=== PATIENT | female | born 1930 | race Caucasian/White ===

== ENCOUNTER 2016-03-12 10:14 | Emergency (ER) | payer MEDICARE ==
[~2016-03-12] VITALS: Ht 152.4 cm; Wt 57.2 kg
[~2016-03-12 10:14] MED LIST: AMLO5TAB2 PO; ATOR20TA58 PO; BENZ100C2 PO; CEPH-264 PO; CILO100T PO; CILO100T21 PO; CILO50TA10 PO; CLON0.1T PO; CLOP75TA27 PO; DIAZ2TAB3 PO; FEXO180T81 PO; FLUT15.88 NS; FLUT1DIS3 IH; FLUT9.9S NS; FURO-69 PO; GABA-585 PO; HYDR-2666 PO; HYDR12.53 PO; LATA2.5D2 OU; LOSA1TAB16 PO; LOSA1TAB18 PO; MAGN400O4 PO; MONT10TA9 PO; NAPR500T3 PO; PANT40TA3 PO; PANT40TA5 PO; PROAIR HFA8.5 GM INH; SIMV40TA PO; TIMO5DRO26 OP; TRAM50TA PO; XOPENEX0.63 MG/3 IH
[2016-03-12 12:30] VITALS: BP 126/72
--- NOTE | 2016-03-12 12:30 | PHYS DOC ---
Past Medical History Past Medical History: Anxiety, Arthritis, Asthma, CAD, COPD, Depression, GERD, High Cholesterol, Hypertension, Hypotension, UTI Additional Past Medical Histor: CLAUDICATION OF BILATERAL LEG Past Surgical History: Appendectomy, Hysterectomy Additional Past Surgical Histo: Shoulders, Back, CLAUDICATION W/ INTERVENTION Alcohol Use: None Drug Use: None Adult General Chief Complaint Chief Complaint: LOWER EXTREMITY SWELLING [facility] Patient is a 85 year old female who presents with son for evaluation of worsening bilateral LE edema. She mixed up her day and night meds a couple days ago. She otherwise has been asymptomatic. She had mild bilateral foot pain from swelling. Her pain and swelling are improving since her son has applied her compression hose this a.m. prior to coming to ED. She denies cough, dyspnea, orthopnea, chest pain, injury, hemoptysis. Review of Systems Review of Systems Constitutional: Denies fever or chills [] Eyes: Denies change in visual acuity, redness, or eye pain [] HENT: Denies nasal congestion or sore throat [] Respiratory: Denies cough or shortness of breath [] Cardiovascular: No additional information not addressed in HPI [] GI: Denies abdominal pain, nausea, vomiting, bloody stools or diarrhea [] : Denies dysuria or hematuria [] Musculoskeletal: Denies back pain or joint pain [] Integument: Denies rash or skin lesions [] Neurologic: Denies headache, focal weakness or sensory changes [] Endocrine: Denies polyuria or polydipsia [] Allergies Allergies Allergies Coded Allergies Type Severity Reaction Last Updated Verified Sulfa (Sulfonamide Antibiotics) Allergy Intermediate 12/26/15 Yes codeine Allergy Intermediate 12/26/15 Yes Physical Exam Physical Exam Constitutional: Well developed, well nourished, no acute distress, non-toxic appearance. [] HENT: Normocephalic, atraumatic, bilateral external ears normal, oropharynx moist, nose normal. [] Eyes: PERRLA, EOMI. [] Neck: Normal range of motion, supple. [] Cardiovascular:Heart rate regular rhythm [] Lungs & Thorax: Bilateral breath sounds clear to auscultation [] Abdomen: Bowel sounds normal, soft, no tenderness. [] Skin: Warm, dry, no erythema, no rash. [] Back: No tenderness, no CVA tenderness. [] Extremities: No tenderness, ROM intact, bilateral 2+ LE edema. [] Neurologic: Alert and oriented X 3, normal motor function, normal sensory function, no focal deficits noted. [] Psychologic: Affect normal, judgement normal, mood normal. [] Current Patient Data Vital Signs Vital Signs Date Time Temp Pulse Resp B/P Pulse Ox O2 Delivery O2 Flow Rate FiO2 03/12/16 12:30 76 20 126/72 96 Room Air 03/12/16 10:28 98.3 98.3 Course & Med Decision Making Course & Med Decision Making She appears well on exam. Discussed management of chronic edema (as this is well documented in prior exams). Discussed importance of proper medications administration. Son states she is resistant to letting family help her and they are concerned for her well being as she lives alone. Discussed avenues for her family to help her. She has capacity to make decision to return home at this time. Return precautions given. She and son understand and agree with plan. Dragon Disclaimer Dragon Disclaimer This electronic medical record was generated, in whole or in part, using a voice recognition dictation system. Departure Departure Impression: Primary Impression: Bilateral lower extremity edema Disposition: 01 HOME, SELF-CARE Condition: STABLE Referrals: LIZABETH GOMEZ MD (PCP) Patient Instructions: Peripheral Edema Additional Instructions: Take your medications as prescribed. Follow-up with your primary care doctor. Return for any concerns. Ernestine RAM MD Mar 12, 2016 12:30
== END 2016-03-12 12:43 | disposition home or self-care (01) ==
LOC: ER 10:14
DX: R60.0 Localized edema (principal); I10 Essential (primary) hypertension; M19.90 Unspecified osteoarthritis, unspecified site; E78.00 Pure hypercholesterolemia, unspecified; J45.909 Unspecified asthma, uncomplicated; J44.9 Chronic obstructive pulmonary disease, unspecified; I25.10 Atherosclerotic heart disease of native coronary artery without angina pectoris; I95.9 Hypotension, unspecified; Z88.2 Allergy status to sulfonamides; Z88.5 Allergy status to narcotic agent
CPT/HCPCS: 99283

== ENCOUNTER 2016-07-26 20:06 | Emergency (ER) | payer MEDICARE ==
[~2016-07-26] VITALS: Ht 152.4 cm; Wt 49.9 kg
[~2016-07-26 20:06] MED LIST changes: +BENZ100C15 PO; -BENZ100C2 PO; -CLOP75TA27 PO; +CLOP75TA57 PO; -HYDR-2666 PO; +HYDR-2758 PO; -MAGN400O4 PO; +MAGN400O7 PO
[2016-07-26] MEDS ORDERED: LIDOCAINE 1% / SOD BICARB 8.4% 20 ML VIAL. IJ ONE (20:30)
[2016-07-26] MEDS ORDERED: TETANUS AND DIPHTHERIA TOX/PF 0.5 ML DISP.SYRIN. VAX IM ONE (20:30)
[2016-07-26] MEDS ORDERED: CEPH-263 PO (20:34)
--- NOTE | 2016-07-26 20:35 | PHYS DOC ---
Past Medical History Past Medical History: Anxiety, Arthritis, Asthma, CAD, COPD, Depression, GERD, High Cholesterol, Hypertension, Hypotension, UTI, Other Additional Past Medical Histor: CLAUDICATION OF BILATERAL LEG Past Surgical History: Appendectomy, Hysterectomy, Other Additional Past Surgical Histo: Shoulders, Back, CLAUDICATION W/ INTERVENTION, R ANKLE ORIF Alcohol Use: None Drug Use: None Adult General Chief Complaint Chief Complaint: LACERATION/AVULSION HPI HPI Patient is a 86 year old arrives to the emergency department per EMS with complaints laceration to the left forearm. Patient states she was working in her garden when the tools lacerated her arm. Hemostasis obtained prior to arrival. Patient has no complaints of headache, lightheadedness, chest pain, nausea, vomiting. Review of Systems Review of Systems Constitutional: Denies fever or chills [] Eyes: Denies change in visual acuity, redness, or eye pain [] HENT: Denies nasal congestion or sore throat [] Respiratory: Denies cough or shortness of breath [] Cardiovascular: No additional information not addressed in HPI [] GI: Denies abdominal pain, nausea, vomiting, bloody stools or diarrhea [] : Denies dysuria or hematuria [] Musculoskeletal: Denies back pain or joint pain [] Integument: Laceration left forearm Neurologic: Denies headache, focal weakness or sensory changes [] Endocrine: Denies polyuria or polydipsia [] Current Medications Current Medications Current Medications Medications (Trade) Dose Ordered Sig/Amos Start Time Stop Time Status Last Admin Dose Admin Lidocaine/Sodium Bicarbonate (Buffered Lidocaine 1%) 20 ml 1X ONCE 07/26/16 20:30 07/26/16 20:31 Tetanus/ Diphtheria Toxoids (Tenivac Syringe) 0.5 ml ONCE ONCE 07/26/16 20:30 07/26/16 20:31 Allergies Allergies Allergies Coded Allergies Type Severity Reaction Last Updated Verified Sulfa (Sulfonamide Antibiotics) Allergy Intermediate 12/26/15 Yes codeine Allergy Intermediate 03/16/16 Yes Physical Exam Physical Exam Constitutional: Well developed, well nourished, no acute distress, non-toxic appearance. [] HENT: Normocephalic, atraumatic Neck: Normal range of motion, no tenderness, supple, no stridor. [] Cardiovascular:Heart rate regular rhythm, no murmur [] Lungs & Thorax: Bilateral breath sounds clear to auscultation [] Abdomen: Bowel sounds normal, soft, no tenderness, no masses, no pulsatile masses. [] Skin: Left forearm, volar aspect of the midforearm, 4 cm partial-thickness laceration. No active bleeding at time of exam. Back: No tenderness, no CVA tenderness. [] Extremities: No tenderness, no cyanosis, no clubbing, ROM intact, no edema. No bony tenderness exam of the left forearm, left elbow and left hand exam unremarkable. Full range of motion of the elbow and wrist as well as the hand without difficulty. Neurovascular intact distally. Neurologic: Alert and oriented X 3, normal motor function, normal sensory function, no focal deficits noted. [] Psychologic: Affect normal, judgement normal, mood normal. [] Current Patient Data Vital Signs Vital Signs Date Time Temp Pulse Resp B/P (MAP) Pulse Ox O2 Delivery O2 Flow Rate FiO2 07/26/16 20:07 98.3 80 18 93 Room Air 98.3 EKG EKG [] Radiology/Procedures Radiology/Procedures [] Course & Med Decision Making Course & Med Decision Making Procedure note: Left forearm, 4 cm laceration cleansed with Betadine, anesthetized with 1% lidocaine, 2 mL. Wound was copiously irrigated with normal saline, Betadine scrub. Wound edges approximated with 4-0 Prolene, 12 running sutures. Wound was dressed with a bulky bandage. Patient tolerated procedure well. Pertinent Labs and Imaging studies reviewed. (See chart for details) [] Dragon Disclaimer Dragon Disclaimer This electronic medical record was generated, in whole or in part, using a voice recognition dictation system. Departure Departure Impression: Primary Impression: Laceration Disposition: 01 HOME, SELF-CARE Condition: STABLE Referrals: LIZABETH GOMEZ MD (PCP) Patient Instructions: Diphtheria Toxoid; Tetanus Toxoid Adsorbed, DT, Td, Laceration Care, Adult Additional Instructions: Keep the wound clean and dry. You may wash with soap and water. Please see her primary care physician to have the sutures removed in 10 days. Return to the emergency Department for new symptoms or concerns or worsening of current condition. Scripts Cephalexin (KEFLEX) 250 Mg Capsule 1 CAP PO TID, #21 CAP Prov: JULISSA YE APRN 07/26/16 JULISSA YE APRN Jul 26, 2016 20:35
[2016-07-26 21:00] VITALS: BP 135/67
== END 2016-07-26 21:01 | disposition home or self-care (01) ==
LOC: ER 20:06
DX: S51.812A Laceration without foreign body of left forearm, initial encounter (principal); F41.9 Anxiety disorder, unspecified; M19.90 Unspecified osteoarthritis, unspecified site; J44.9 Chronic obstructive pulmonary disease, unspecified; I25.10 Atherosclerotic heart disease of native coronary artery without angina pectoris; F32.9 Major depressive disorder, single episode, unspecified; K21.9 Gastro-esophageal reflux disease without esophagitis; E78.00 Pure hypercholesterolemia, unspecified; I10 Essential (primary) hypertension; Z87.440 Personal history of urinary (tract) infections; Z88.5 Allergy status to narcotic agent; Z88.2 Allergy status to sulfonamides; W27.8XXA Contact with other nonpowered hand tool, initial encounter; Y93.89 Activity, other specified; Y92.096 Garden or yard of other non-institutional residence as the place of occurrence of the external cause; Y99.8 Other external cause status
CPT/HCPCS: 12002; 90471; 90714; 99283-25

== ENCOUNTER 2016-08-20 09:41 | Inpatient (IN) | payer MEDICARE ==
[~2016-08-20] VITALS: Ht 152.4 cm; Wt 55.5 kg
[~2016-08-20 09:41] MED LIST changes: +CEPH-263 PO
[2016-08-20] MEDS ORDERED: ONDANSETRON PF 4 MG/2 ML VIAL. IV ONE (10:30)
[2016-08-20] MEDS ORDERED: IV NORMAL SALINE 500ML BAG 500 ML IV ONE (10:30)
[2016-08-20] MEDS: HYDROmorphone 2 MG/ML VIAL IV PRN ×2 (10:41→15:59)
[2016-08-20 10:47] LABS: BASO # 0.1 x10^3/uL (0.0-0.2); BASO % 1 % (0-3); EOS % 6 % (0-3); HEMATOCRIT 39.3 % (36.0-47.0); HEMOGLOBIN 13.5 g/dL (12.0-15.5); LYMPH % 30 % (24-48); MEAN CORPUSCULAR HEMOGLOBIN 31 pg (25-35); MEAN CORPUSCULAR HGB CONC 34 g/dL (31-37); MEAN CORPUSCULAR VOLUME 90 fL (79-100); MONO % 5 % (0-9); NEUT % 59 % (31-73); PLATELET COUNT 286 x10^3/uL (140-400); RED BLOOD COUNT 4.36 x10^6/uL (3.50-5.40); RED CELL DISTRIBUTION WIDTH 13.8 % (11.5-14.5)
[2016-08-20 10:50] LABS: ALBUMIN 3.4 g/dL (3.4-5.0); CALCIUM 8.5 mg/dL (8.5-10.1); CREATININE 0.5 mg/dL (0.6-1.0); DIRECT BILIRUBIN 0.1 mg/dL (0.0-0.2); GFR 116.4; POTASSIUM 3.2 mmol/L (3.5-5.1); TOTAL BILIRUBIN 0.6 mg/dL (0.2-1.0); TOTAL PROTEIN 6.7 g/dL (6.4-8.2)
[2016-08-20 11:08] LABS: BILIRUBIN,URINE NEGATIVE (NEG); GLUCOSE,URINE NEGATIVE (NEG); NITRITE,URINE NEGATIVE (NEG); PH,URINE 7.5; PROTEIN,URINE NEGATIVE (NEG-TRACE); UROBILINOGEN,URINE 0.2 mg/dL (0.2 mg/dL)
[2016-08-20] MEDS ORDERED: IOHEXOL 300 MG/ML 75 ML VIAL IV ONE (11:15)
[2016-08-20 11:25] LABS: BACTERIA,URINE FEW /HPF (0-FEW); RBC,URINE 0 /HPF (0-2); SQUAMOUS EPITHELIAL CELL,UR FEW /LPF
[2016-08-20] MEDS ORDERED: CONTRAST GIVEN MC PRN (11:30)
--- NOTE | 2016-08-20 11:37 | PHYS DOC ---
Past Medical History Past Medical History: Anxiety, Arthritis, Asthma, CAD, COPD, Depression, GERD, High Cholesterol, Hypertension, Hypotension, UTI, Other Additional Past Medical Histor: CLAUDICATION OF BILATERAL LEG Past Surgical History: Appendectomy, Hysterectomy, Other Additional Past Surgical Histo: Shoulders, Back, CLAUDICATION W/ INTERVENTION, R ANKLE ORIF Alcohol Use: None Drug Use: None Adult General Chief Complaint Chief Complaint: GI PROBLEM HPI HPI 78-year-old female presenting to the emergency department with right lower quadrant abdominal pain that is sharp nonradiating moderate associated with nausea without vomiting. It started around 9:00 this morning. She denies fevers chills diarrhea constipation. Review of systems is negative for chest pain shortness of breath fevers chills confusion lethargy cyanosis vision changes numbness weakness or tingling. All other review of systems is negative unless otherwise noted in history of present illness. ED course: 78-year-old female presenting to the emergency department with right lower quadrant abdominal pain. Vital signs afebrile normal heart rate. Elevated blood pressure which is chronic condition. Patient was given IV fluids ondansetron and hydromorphone in the emergency department. CT the abdomen pelvis along with blood work obtained. Blood work shows mild hypokalemia, otherwise unremarkable. Troponin negative. EKG shows sinus rhythm with a regular rate. ST segments congruent. Not consistent with ACS. CT the abdomen pelvis shows no acute pathology. The patient's pain was moderately controlled in the emergency department however the patient was not feeling better on reexamination the patient was subsequently admitted for serial abdominal examination, GI consult, further evaluation workup and care to Dr. Fleming. Review of Systems Review of Systems SEE ABOVE. Current Medications Current Medications Current Medications Medications (Trade) Dose Ordered Sig/Amos Start Time Stop Time Status Last Admin Dose Admin Hydromorphone HCl (Dilaudid) 0.5 mg 1X ONCE 08/20/16 11:45 08/20/16 11:46 DC Info (Do NOT chart on this entry -- for MONITORING) 1 each PRN DAILY PRN 08/20/16 11:30 08/22/16 11:29 Iohexol (Omnipaque 300 Mg/ml) 75 ml 1X ONCE 08/20/16 11:15 08/20/16 11:25 DC 08/20/16 11:36 75 ML Ondansetron HCl (Zofran) 4 mg 1X ONCE 08/20/16 10:30 08/20/16 10:33 DC 08/20/16 10:42 4 MG Sodium Chloride 500 ml @ 500 mls/hr 1X ONCE 08/20/16 10:30 08/20/16 11:29 DC 08/20/16 10:41 500 MLS/HR Allergies Allergies Allergies Coded Allergies Type Severity Reaction Last Updated Verified Sulfa (Sulfonamide Antibiotics) Allergy Intermediate 12/26/15 Yes codeine Adverse Reaction Intermediate NAUSEA AND VOMITING 08/20/16 Yes Physical Exam Physical Exam SEE ABOVE Constitutional: Well developed, well nourished, no acute distress, non-toxic appearance. [] HENT: Normocephalic, atraumatic, bilateral external ears normal, oropharynx moist, no oral exudates, nose normal. Eyes: PERRLA, EOMI, conjunctiva normal, no discharge. [] Neck: Normal range of motion, no tenderness, supple, no stridor. [] Cardiovascular: Heart rate regular rhythm, no murmur Lungs & Thorax: Bilateral breath sounds clear to auscultation [] Abdomen: Abdomen is soft and mildly tender to palpation in the right lower quadrant. No rebound tenderness or guarding is present. Skin: Warm, dry, no erythema, no rash. [] Back: No tenderness, no CVA tenderness. [] Extremities: No tenderness, no cyanosis, no clubbing, ROM intact, no edema. Neurologic: Alert and oriented X 3, normal motor function, normal sensory function, no focal deficits noted. Psychologic: Affect normal, judgement normal, mood normal. [] Current Patient Data Vital Signs Vital Signs Date Time Temp Pulse Resp B/P (MAP) Pulse Ox O2 Delivery O2 Flow Rate FiO2 08/20/16 12:20 67 18 137/76 (96) 98 Room Air 08/20/16 09:42 98.8 98.8 Lab Values Laboratory Tests Test 08/20/16 10:20 08/20/16 10:35 White Blood Count 10.0 x10^3/uL (4.0-11.0) Red Blood Count 4.36 x10^6/uL (3.50-5.40) Hemoglobin 13.5 g/dL (12.0-15.5) Hematocrit 39.3 % (36.0-47.0) Mean Corpuscular Volume 90 fL (79-100) Mean Corpuscular Hemoglobin 31 pg (25-35) Mean Corpuscular Hemoglobin Concent 34 g/dL (31-37) Red Cell Distribution Width 13.8 % (11.5-14.5) Platelet Count 286 x10^3/uL (140-400) Neutrophils (%) (Auto) 59 % (31-73) Lymphocytes (%) (Auto) 30 % (24-48) Monocytes (%) (Auto) 5 % (0-9) Eosinophils (%) (Auto) 6 % (0-3) H Basophils (%) (Auto) 1 % (0-3) Neutrophils # (Auto) 5.9 x10^3uL (1.8-7.7) Lymphocytes # (Auto) 3.0 x10^3/uL (1.0-4.8) Monocytes # (Auto) 0.5 x10^3/uL (0.0-1.1) Eosinophils # (Auto) 0.6 x10^3/uL (0.0-0.7) Basophils # (Auto) 0.1 x10^3/uL (0.0-0.2) Sodium Level 139 mmol/L (136-145) Potassium Level 3.2 mmol/L (3.5-5.1) L Chloride Level 100 mmol/L (98-107) Carbon Dioxide Level 34 mmol/L (21-32) H Anion Gap 5 (6-14) L Blood Urea Nitrogen 13 mg/dL (7-20) Creatinine 0.5 mg/dL (0.6-1.0) L Estimated GFR (Cockcroft-Gault) 116.4 Glucose Level 104 mg/dL (70-99) H Lactic Acid Level 1.4 mmol/L (0.4-2.0) Calcium Level 8.5 mg/dL (8.5-10.1) Total Bilirubin 0.6 mg/dL (0.2-1.0) Direct Bilirubin 0.1 mg/dL (0.0-0.2) Aspartate Amino Transferase (AST) 18 U/L (15-37) Alanine Aminotransferase (ALT) 21 U/L (14-59) Alkaline Phosphatase 94 U/L (46-116) Troponin I Quantitative < 0.017 ng/mL (0.000-0.055) Total Protein 6.7 g/dL (6.4-8.2) Albumin 3.4 g/dL (3.4-5.0) Lipase 158 U/L (73-393) Urine Collection Type Void Urine Color Yellow Urine Clarity Clear Urine pH 7.5 Urine Specific Potter <=1.005 Urine Protein Negative mg/dL (NEG-TRACE) Urine Glucose (UA) Negative mg/dL (NEG) Urine Ketones (Stick) Negative mg/dL (NEG) Urine Blood Negative (NEG) Urine Nitrite Negative (NEG) Urine Bilirubin Negative (NEG) Urine Urobilinogen Dipstick 0.2 mg/dL (0.2 mg/dL) Urine Leukocyte Esterase Small (NEG) Urine RBC 0 /HPF (0-2) Urine WBC 1-4 /HPF (0-4) Urine Squamous Epithelial Cells Few /LPF Urine Amorphous Sediment Present /HPF Urine Bacteria Few /HPF (0-FEW) Laboratory Tests 08/20/16 10:20 Laboratory Tests 08/20/16 10:20 EKG EKG [] Radiology/Procedures Radiology/Procedures [] Course & Med Decision Making Course & Med Decision Making Pertinent Labs and Imaging studies reviewed. (See chart for details) [] Dragon Disclaimer Dragon Disclaimer This electronic medical record was generated, in whole or in part, using a voice recognition dictation system. Departure Departure Impression: Primary Impression: Right lower quadrant abdominal pain Disposition: ADMITTED INPATIENT Admitting Physician: Harjeet Crum Condition: STABLE Referrals: LIZABETH GOMEZ MD (PCP) Patient Instructions: Abdominal Pain ASHLEY WILLS MD Aug 20, 2016 11:37
[2016-08-20] MEDS ORDERED: HYDROmorphone 2 MG/ML VIAL IVP ONE (11:45)
--- NOTE | 2016-08-20 12:14 | RAD ---
CT of the abdomen and pelvis with contrast, 08/20/2016: History: Right-sided abdominal pain Multidetector CT imaging was performed following an IV bolus injection of iodinated contrast material. Comparison is made to a study from 08/09/2010. The liver is unremarkable. No gallbladder abnormality is seen. The pancreas shows no abnormality. The spleen is within normal limits in size. There are 2 left renal cysts. One of these demonstrates calcification along its posterior wall. This cyst has decreased in size since previous exam. The kidneys show no evidence of obstruction. There is moderate calcific plaquing of the abdominal aorta and its branches. No abdominal or pelvic adenopathy is evident. The uterus is surgically absent. The urinary bladder is mildly distended. Scattered colonic diverticula are present, most numerous in the sigmoid region. No paracolonic inflammatory process is seen. There are sutures related to what appears to be small bowel in the left lower quadrant. No bowel dilatation is evident. The appendix is not visualized. No dilated appendix or pericecal inflammatory process is seen. No free air or free fluid is evident in the abdomen or pelvis. Surgical pins are present in the left hip. Moderate multilevel degenerative change is present in the spine. IMPRESSION: 1. Colonic diverticulosis. 2. Left renal cysts. 3. No acute abdominal or pelvic abnormality is detected. PQRS Compliance Statement: One or more of the following individualized dose reduction techniques were utilized for this examination: 1. Automated exposure control 2. Adjustment of the mA and/or kV according to patient size 3. Use of iterative reconstruction technique
--- NOTE | 2016-08-20 12:20 | ACF ---
Admission Forms Criteria I am unable to edit this form. This patient was placed as observation status. This is the only avenue in our electronic medical record for me to document this. All of the above information is not my professional medical opinion. Admission Criteria Met?: Pending JENNIFER LAWRENCE Aug 20, 2016 12:20 ASHLEY WILLS MD Aug 26, 2016 03:53
[2016-08-20] MEDS ORDERED: IV NORMAL SALINE 1000ML BAG 1,000 ML IV SCH (13:09)
[2016-08-20] MEDS ORDERED: MORPHINE SULFATE 2 MG/ML DISP.SYRIN. IV PRN (13:15)
[2016-08-20] MEDS ORDERED: ONDANSETRON PF 4 MG/2 ML VIAL. IV PRN (13:15)
--- NOTE | 2016-08-20 14:53 | PDOC2 ---
GI CONSULT Reason For Consult: Abd pain HPI: HPI: 86 y/o female evaluated in the ER for RLQ pain, admission pending. Her son was present earlier but had to leave. Admits to some short term memory loss sometimes. She reports she awoke this morning w/ RLQ pain. She believes similar pain occurred last week and resolved spontaneously. H/o constipation controlled w/ OTC medications (can't remember names) and h/o GERD mostly controlled w/ PPI QD, uses OTC medications PRN for breakthrough heartburn. Last BM yesterday, denies hematochezia or melena. Some nausea w/o vomiting. Appetite is about the same as it always is; "I never eat right." Fluctuating weight, perhaps w/ more loss recently. No regular NSAID use; home meds indicate use of Plavix and Pletal which she denies. Believes last colonoscopy within 10 years, perhaps w/ polyps; unclear re: previous EGD. (Note consult from Dr. Kaleb Newby in 2013 for right-sided abd pain mentions recent EGD which was unrevealing for PUD. At that time abd US noted normal gallbladder.) CBC and CMP unrevealing except for low K+ (3.2). Lactic acid WNL. UA w/ + ( small) leuk esterase and bacteria. CT A/P negative for acute finding; note renal cysts, moderate plaquing of abd aorta, scattered diverticulosis, and sutures related to small bowel in LLQ. (She denies previous bowel resection.) Feeling better currently after Dilaudid x 1. PMH: PMH: CAD, HTN, HLD, carotid artery disease, chronic lymphedema, asthma, PVD, GERD, ? colon polyps, diverticulosis, UTIs, OA, DDD, anxiety/depression, vertigo, glaucoma, BLE P[employer]EM[employer], appendectomy, hysterectomy, right shoulder arthroscopy, back surgery, right ankle fracture/surgery, right total hip replacement, tonsillectomy, ?small bowel resection (sutures in LLQ on CT) FH: Family History: No pertinent hx Social History: Smoke: No ALCOHOL: none Drugs: None ROS: GEN: Denies fevers, chills, sweats HEENT: Denies blurred vision, sore throat CV: Denies chest pain RESP: Denies shortness of air, cough GI: Per HPI : Denies hematuria, dysuria ENDO: +fluctuating weight NEURO: +memory loss MSK: bilateral feet swelling SKIN: Denies jaundice, pruritus Vitals: Vitals: Vital Signs Date Time Temp Pulse Resp B/P (MAP) Pulse Ox O2 Delivery O2 Flow Rate FiO2 08/20/16 13:47 68 18 136/78 (97) 98 Room Air 08/20/16 09:42 98.8 98.8 Labs: Labs: Laboratory Tests Test 08/20/16 10:20 08/20/16 10:35 White Blood Count 10.0 x10^3/uL (4.0-11.0) Red Blood Count 4.36 x10^6/uL (3.50-5.40) Hemoglobin 13.5 g/dL (12.0-15.5) Hematocrit 39.3 % (36.0-47.0) Mean Corpuscular Volume 90 fL (79-100) Mean Corpuscular Hemoglobin 31 pg (25-35) Mean Corpuscular Hemoglobin Concent 34 g/dL (31-37) Red Cell Distribution Width 13.8 % (11.5-14.5) Platelet Count 286 x10^3/uL (140-400) Neutrophils (%) (Auto) 59 % (31-73) Lymphocytes (%) (Auto) 30 % (24-48) Monocytes (%) (Auto) 5 % (0-9) Eosinophils (%) (Auto) 6 % (0-3) Basophils (%) (Auto) 1 % (0-3) Neutrophils # (Auto) 5.9 x10^3uL (1.8-7.7) Lymphocytes # (Auto) 3.0 x10^3/uL (1.0-4.8) Monocytes # (Auto) 0.5 x10^3/uL (0.0-1.1) Eosinophils # (Auto) 0.6 x10^3/uL (0.0-0.7) Basophils # (Auto) 0.1 x10^3/uL (0.0-0.2) Sodium Level 139 mmol/L (136-145) Potassium Level 3.2 mmol/L (3.5-5.1) Chloride Level 100 mmol/L (98-107) Carbon Dioxide Level 34 mmol/L (21-32) Anion Gap 5 (6-14) Blood Urea Nitrogen 13 mg/dL (7-20) Creatinine 0.5 mg/dL (0.6-1.0) Estimated GFR (Cockcroft-Gault) 116.4 Glucose Level 104 mg/dL (70-99) Lactic Acid Level 1.4 mmol/L (0.4-2.0) Calcium Level 8.5 mg/dL (8.5-10.1) Total Bilirubin 0.6 mg/dL (0.2-1.0) Direct Bilirubin 0.1 mg/dL (0.0-0.2) Aspartate Amino Transf (AST/SGOT) 18 U/L (15-37) Alanine Aminotransferase (ALT/SGPT) 21 U/L (14-59) Alkaline Phosphatase 94 U/L (46-116) Troponin I Quantitative < 0.017 ng/mL (0.000-0.055) Total Protein 6.7 g/dL (6.4-8.2) Albumin 3.4 g/dL (3.4-5.0) Lipase 158 U/L (73-393) Urine Collection Type Void Urine Color Yellow Urine Clarity Clear Urine pH 7.5 Urine Specific [place] <=1.005 Urine Protein Negative mg/dL (NEG-TRACE) Urine Glucose (UA) Negative mg/dL (NEG) Urine Ketones (Stick) Negative mg/dL (NEG) Urine Blood Negative (NEG) Urine Nitrite Negative (NEG) Urine Bilirubin Negative (NEG) Urine Urobilinogen Dipstick 0.2 mg/dL (0.2 mg/dL) Urine Leukocyte Esterase Small (NEG) Urine RBC 0 /HPF (0-2) Urine WBC 1-4 /HPF (0-4) Urine Squamous Epithelial Cells Few /LPF Urine Amorphous Sediment Present /HPF Urine Bacteria Few /HPF (0-FEW) Allergies: Coded Allergies: Sulfa (Sulfonamide Antibiotics) (Verified Allergy, Intermediate, 12/26/15) codeine (Verified Adverse Reaction, Intermediate, NAUSEA AND VOMITING, 08/20) TOLERATES HYDROCODONE Medications: Current Medications Medications (Trade) Dose Ordered Sig/Amos Route PRN Reason Start Time Stop Time Status Last Admin Dose Admin Hydromorphone HCl (Dilaudid) 0.5 mg PRN Q1HR PRN IV SEVERE PAIN 08/20/16 10:30 08/20/16 10:41 Ondansetron HCl (Zofran) 4 mg 1X ONCE IV 08/20/16 10:30 08/20/16 10:33 DC 08/20/16 10:42 Sodium Chloride 500 ml @ 500 mls/hr 1X ONCE IV 08/20/16 10:30 08/20/16 11:29 DC 08/20/16 10:41 Iohexol (Omnipaque 300 Mg/ml) 75 ml 1X ONCE IV 08/20/16 11:15 08/20/16 11:25 DC 08/20/16 11:36 Imaging: Imaging: CT A/P w/ IV contrast 08/20/16 The liver is unremarkable. No gallbladder abnormality is seen. The pancreas shows no abnormality. The spleen is within normal limits in size. There are 2 left renal cysts. One of these demonstrates calcification along its posterior wall. This cyst has decreased in size since previous exam. The kidneys show no evidence of obstruction. There is moderate calcific plaquing of the abdominal aorta and its branches. No abdominal or pelvic adenopathy is evident. The uterus is surgically absent. The urinary bladder is mildly distended. Scattered colonic diverticula are present, most numerous in the sigmoid region. No paracolonic inflammatory process is seen. There are sutures related to what appears to be small bowel in the left lower quadrant. No bowel dilatation is evident. The appendix is not visualized. No dilated appendix or pericecal inflammatory process is seen. No free air or free fluid is evident in the abdomen or pelvis. Surgical pins are present in the left hip. Moderate multilevel degenerative change is present in the spine. IMPRESSION: 1. Colonic diverticulosis. 2. Left renal cysts. 3. No acute abdominal or pelvic abnormality is detected. PE: GEN: NAD, thin HEENT: Atraumatic, PERRL LUNGS: CTAB anteriorly HEART: RRR +soft murm ABD: BS+, soft, non-distended, RLQ discomfort to deep palpation, perhaps slightly tender LLQ as well EXTREMITY: BLE edema SKIN: No rashes, no jaundice NEURO/PSYCH: A & O 3 A/P: A/P: RLQ pain -sudden onset this morning, possibly had similar pain last week w/ spontaneous resolution -s/p appendectomy, hysterectomy, ?small bowel resection -CT A/P w/o acute issue Constipation - controlled -takes OTC meds, last BM yesterday -reports last colonoscopy within 10 years, perhaps w/ polyps GERD - controlled -on PPI at home, occasionally takes OTC meds for breakthrough heartburn -records indicate EGD in 2013 w/o ulcers ?weight loss -reports h/o fluctuating weight, perhaps some decreased appetite (although this does not seem like a new issue) CAD, PVD -- Pain currently improved after Dilaudid. D/w Dr. Rodriguez - will check CTA tomorrow. Try clears, ADAT today. Update: According to office records, last EGD in 09/2014 w/ tortuous esophagus and benign esophageal stricture (dilated), H. pylori negative gastritis, and normal duodenum. Last colonoscopy on file from 2007 w/ sigmoid diverticulosis and internal hemorrhoids only. LA NENA CORDOBA Aug 20, 2016 14:53
[2016-08-20] MEDS: POLYETHYLENE GLYCOL 3350 17 GM PACKET. PO SCH (15:59)
[2016-08-20 16:00] VITALS: BP 164/71
[2016-08-20] MEDS: PANTOPRAZOLE 40 MG TABLET.DR. PO SCH (16:00)
[2016-08-20] MEDS ORDERED: ESCITALOPRAM OX10 MG PO (17:26)
[2016-08-20] MEDS ORDERED: TRAM50TA PO (17:26)
[2016-08-20] MEDS ORDERED: PROAIR HFA8.5 GM INH (17:26)
[2016-08-20] MEDS ORDERED: AMLO5TAB2 PO (17:26)
[2016-08-20] MEDS ORDERED: TIMO5DRO26 OP (17:26)
[2016-08-20] MEDS ORDERED: HYDR12.58 PO (17:26)
[2016-08-20] MEDS ORDERED: LOSA50TA6 PO (17:26)
[2016-08-20] MEDS ORDERED: DIAZ5TAB4 PO (17:26)
[2016-08-20] MEDS ORDERED: FLUT1DIS3 IH (17:26)
[2016-08-20] MEDS ORDERED: LATA2.5D2 EACHEYE (17:26)
[2016-08-20 17:58] VITALS: BP 164/71
[2016-08-20 19:00] VITALS: BP 148/48
[2016-08-20] MEDS ORDERED: ALBUTEROL SULFATE 2.5 MG/3 ML NEBU. NEB PRN (19:30)
[2016-08-20] MEDS ORDERED: ACETAMINOPHEN 325 MG TABLET. PO PRN (19:30)
[2016-08-20] MEDS: IV NORMAL SALINE 1000ML BAG 1,000 ML IV SCH (19:30)
[2016-08-20] MEDS ORDERED: hydrALAZINE 20 MG/ML VIAL. IVP PRN (19:30)
--- NOTE | 2016-08-20 19:40 | PDOC1 ---
History and Physical Date of Admission Date of Admission 08/20/16 7 26 pm Identification/Chief Complaint Chief Complaint abdominal pain Problems: History of Present Illness History of Present Illness A 86 F with hx of HTN, PAD, GERD presented to hospital for abdominal RUQ, for 1 year , worse today, waxing and waning better with dilaudid, 11/25, no radiation, . Pt not able to provide good hx, old records reviewed, she had hx of PAD. No hematochezia or hematemesis. 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 SOCIAL HISTORY Smoke: No ALCOHOL: none Drugs: None Cardiovascular: HTN, Hyperlipidemia, Other Pulmonary: Asthma CENTRAL NERVOUS SYSTEM: Other GI: GERD Psych: Anxiety, Depression Rheumatologic: No pertinent hx Infectious disease: No pertinent hx Renal/: UTI Endocrine: No pertinent hx Past Surgical History Past Surgical History: Appendectomy, Arthroscopy, Total hip replacement, Tonsillectomy, Hysterectomy, Other Family History Family History: No Significant, Other (some GI cancer, pt doesn't know) Social History Smoke: No ALCOHOL: none Drugs: None Current Problem List Problem List Problems Medical Problems: (1) Right lower quadrant abdominal pain Status: Acute Current Medications Current Medications Current Medications Medications (Trade) Dose Ordered Sig/Amos Start Time Stop Time Status Last Admin Dose Admin Hydromorphone HCl (Dilaudid) 0.5 mg 1X ONCE 08/20/16 11:45 08/20/16 11:46 DC Info (Do NOT chart on this entry -- for MONITORING) 1 each PRN DAILY PRN 08/20/16 11:30 08/22/16 11:29 Iohexol (Omnipaque 300 Mg/ml) 75 ml 1X ONCE 08/20/16 11:15 08/20/16 11:25 DC 08/20/16 11:36 75 ML Morphine Sulfate 2 mg PRN Q2HR PRN 08/20/16 13:15 08/21/16 13:14 Ondansetron HCl (Zofran) 4 mg PRN Q8HRS PRN 08/20/16 13:15 08/21/16 13:14 Pantoprazole Sodium (Protonix) 40 mg DAILYAC 08/20/16 16:30 08/20/16 16:00 40 MG Polyethylene Glycol (miraLAX PACKET) 17 gm DAILY 08/20/16 15:15 08/20/16 15:59 17 GM Sodium Chloride 1,000 ml @ 125 mls/hr Q8H 08/20/16 13:09 08/21/16 13:08 08/20/16 16:00 125 MLS/HR Allergies Allergies Allergies Coded Allergies Type Severity Reaction Last Updated Verified Sulfa (Sulfonamide Antibiotics) Allergy Intermediate 12/26/15 Yes codeine Adverse Reaction Intermediate NAUSEA AND VOMITING 08/20/16 Yes ROS Review of System CONSTITUTIONAL: No fever or chills EYES: No recent changes SKIN: No rash or itching CARDIOVASCULAR: No chest pain, syncope, palpitations, or edema RESPIRATORY: No SOB or cough GASTROINTESTINAL: abdominal pain NEUROLOGICAL: No headaches or weakness ENDOCRINE: No cold or heat intolerance GENITOURINARY: No urgency or frequency of urination MUSCULOSKELETAL: No back pain or joint pain LYMPHATICS: No enlarged lymph nodes PSYCHIATRIC: No anxiety or depression Physical Exam Physical Exam GEN.: No apparent distress. Alert and oriented. HEENT: Head is normocephalic, atraumatic NECK: Supple. no JVD LUNGS: Clear to auscultation. HEART: RRR, S1, S2 present. Peripheral pulses intact ABDOMEN: Soft, nontender. Positive bowel sounds. EXTREMITIES: Without any cyanosis. NEUROLOGIC: Normal speech, normal tone PSYCHIATRIC: Normal affect, normal mood. SKIN: No Visible ulcerations Vitals Vitals Vital Signs Date Time Temp Pulse Resp B/P (MAP) Pulse Ox O2 Delivery O2 Flow Rate FiO2 08/20/16 17:58 98.1 70 164/71 (102) 99 98.1 08/20/16 17:43 Room Air 08/20/16 16:00 18 Labs Labs Laboratory Tests Test 08/20/16 10:20 08/20/16 10:35 08/20/16 15:15 White Blood Count 10.0 x10^3/uL (4.0-11.0) Red Blood Count 4.36 x10^6/uL (3.50-5.40) Hemoglobin 13.5 g/dL (12.0-15.5) Hematocrit 39.3 % (36.0-47.0) Mean Corpuscular Volume 90 fL (79-100) Mean Corpuscular Hemoglobin 31 pg (25-35) Mean Corpuscular Hemoglobin Concent 34 g/dL (31-37) Red Cell Distribution Width 13.8 % (11.5-14.5) Platelet Count 286 x10^3/uL (140-400) Neutrophils (%) (Auto) 59 % (31-73) Lymphocytes (%) (Auto) 30 % (24-48) Monocytes (%) (Auto) 5 % (0-9) Eosinophils (%) (Auto) 6 % (0-3) Basophils (%) (Auto) 1 % (0-3) Neutrophils # (Auto) 5.9 x10^3uL (1.8-7.7) Lymphocytes # (Auto) 3.0 x10^3/uL (1.0-4.8) Monocytes # (Auto) 0.5 x10^3/uL (0.0-1.1) Eosinophils # (Auto) 0.6 x10^3/uL (0.0-0.7) Basophils # (Auto) 0.1 x10^3/uL (0.0-0.2) Sodium Level 139 mmol/L (136-145) Potassium Level 3.2 mmol/L (3.5-5.1) Chloride Level 100 mmol/L (98-107) Carbon Dioxide Level 34 mmol/L (21-32) Anion Gap 5 (6-14) Blood Urea Nitrogen 13 mg/dL (7-20) Creatinine 0.5 mg/dL (0.6-1.0) Estimated GFR (Cockcroft-Gault) 116.4 Glucose Level 104 mg/dL (70-99) Lactic Acid Level 1.4 mmol/L (0.4-2.0) 0.9 mmol/L (0.4-2.0) Calcium Level 8.5 mg/dL (8.5-10.1) Total Bilirubin 0.6 mg/dL (0.2-1.0) Direct Bilirubin 0.1 mg/dL (0.0-0.2) Aspartate Amino Transf (AST/SGOT) 18 U/L (15-37) Alanine Aminotransferase (ALT/SGPT) 21 U/L (14-59) Alkaline Phosphatase 94 U/L (46-116) Troponin I Quantitative < 0.017 ng/mL (0.000-0.055) Total Protein 6.7 g/dL (6.4-8.2) Albumin 3.4 g/dL (3.4-5.0) Lipase 158 U/L (73-393) Urine Collection Type Void Urine Color Yellow Urine Clarity Clear Urine pH 7.5 Urine Specific [place] <=1.005 Urine Protein Negative mg/dL (NEG-TRACE) Urine Glucose (UA) Negative mg/dL (NEG) Urine Ketones (Stick) Negative mg/dL (NEG) Urine Blood Negative (NEG) Urine Nitrite Negative (NEG) Urine Bilirubin Negative (NEG) Urine Urobilinogen Dipstick 0.2 mg/dL (0.2 mg/dL) Urine Leukocyte Esterase Small (NEG) Urine RBC 0 /HPF (0-2) Urine WBC 1-4 /HPF (0-4) Urine Squamous Epithelial Cells Few /LPF Urine Amorphous Sediment Present /HPF Urine Bacteria Few /HPF (0-FEW) Laboratory Tests Test 08/20/16 10:20 08/20/16 10:35 08/20/16 15:15 White Blood Count 10.0 x10^3/uL (4.0-11.0) Red Blood Count 4.36 x10^6/uL (3.50-5.40) Hemoglobin 13.5 g/dL (12.0-15.5) Hematocrit 39.3 % (36.0-47.0) Mean Corpuscular Volume 90 fL (79-100) Mean Corpuscular Hemoglobin 31 pg (25-35) Mean Corpuscular Hemoglobin Concent 34 g/dL (31-37) Red Cell Distribution Width 13.8 % (11.5-14.5) Platelet Count 286 x10^3/uL (140-400) Neutrophils (%) (Auto) 59 % (31-73) Lymphocytes (%) (Auto) 30 % (24-48) Monocytes (%) (Auto) 5 % (0-9) Eosinophils (%) (Auto) 6 % (0-3) Basophils (%) (Auto) 1 % (0-3) Neutrophils # (Auto) 5.9 x10^3uL (1.8-7.7) Lymphocytes # (Auto) 3.0 x10^3/uL (1.0-4.8) Monocytes # (Auto) 0.5 x10^3/uL (0.0-1.1) Eosinophils # (Auto) 0.6 x10^3/uL (0.0-0.7) Basophils # (Auto) 0.1 x10^3/uL (0.0-0.2) Sodium Level 139 mmol/L (136-145) Potassium Level 3.2 mmol/L (3.5-5.1) Chloride Level 100 mmol/L (98-107) Carbon Dioxide Level 34 mmol/L (21-32) Anion Gap 5 (6-14) Blood Urea Nitrogen 13 mg/dL (7-20) Creatinine 0.5 mg/dL (0.6-1.0) Estimated GFR (Cockcroft-Gault) 116.4 Glucose Level 104 mg/dL (70-99) Lactic Acid Level 1.4 mmol/L (0.4-2.0) 0.9 mmol/L (0.4-2.0) Calcium Level 8.5 mg/dL (8.5-10.1) Total Bilirubin 0.6 mg/dL (0.2-1.0) Direct Bilirubin 0.1 mg/dL (0.0-0.2) Aspartate Amino Transf (AST/SGOT) 18 U/L (15-37) Alanine Aminotransferase (ALT/SGPT) 21 U/L (14-59) Alkaline Phosphatase 94 U/L (46-116) Troponin I Quantitative < 0.017 ng/mL (0.000-0.055) Total Protein 6.7 g/dL (6.4-8.2) Albumin 3.4 g/dL (3.4-5.0) Lipase 158 U/L (73-393) Urine Collection Type Void Urine Color Yellow Urine Clarity Clear Urine pH 7.5 Urine Specific [place] <=1.005 Urine Protein Negative mg/dL (NEG-TRACE) Urine Glucose (UA) Negative mg/dL (NEG) Urine Ketones (Stick) Negative mg/dL (NEG) Urine Blood Negative (NEG) Urine Nitrite Negative (NEG) Urine Bilirubin Negative (NEG) Urine Urobilinogen Dipstick 0.2 mg/dL (0.2 mg/dL) Urine Leukocyte Esterase Small (NEG) Urine RBC 0 /HPF (0-2) Urine WBC 1-4 /HPF (0-4) Urine Squamous Epithelial Cells Few /LPF Urine Amorphous Sediment Present /HPF Urine Bacteria Few /HPF (0-FEW) VTE Prophylaxis Ordered VTE Prophylaxis Devices: No VTE Pharmacological Prophylaxi: Yes Assessment/Plan Assessment/Plan Nausea and abdominal pain: CT abdomen no acute findings, aortogram, as pt had hx of PAD, Consult GI and cardiology, pain control with IV Dilaudid prn, avoid [id number] old records, and labs reviewed. prn Zofran. labs and old records reviewed. HTN : home medication resumed, PRN hydralazine Hypokalemia: potassium has been replaced. NPO, IV Hydration wit normal saline. GERD: On Protonix NOAM PEDRAZA MD Aug 20, 2016 19:40
[2016-08-20] MEDS ORDERED: ALBUTEROL SULFATE 108 MCG INH PRN (19:45)
[2016-08-20] MEDS ORDERED: POTASSIUM CL 40MEQ IN 0.9%NACL 1,000 ML IV ONE (20:00)
[2016-08-20] MEDS: BUDESONIDE 0.5 MG/2 ML NEBU. NEB SCH (20:00)
[2016-08-20] MEDS: IPRATRPIUM/ALBUTEROL 0.5/2.5MG 3 ML NEBU. NEB SCH (20:00)
[2016-08-20] MEDS: ATORVASTATIN CALCIUM 20 MG TABLET PO SCH (20:58)
[2016-08-20] MEDS: LATANOPROST 0.005% OPHTH SOLUTION 2.5ML BOTTLE. OU SCH (20:58)
[2016-08-20] MEDS: cloNIDine HCL 0.1 MG TABLET PO SCH (20:59)
[2016-08-20] MEDS: diazePAM 5 MG TABLET PO SCH (20:59)
[2016-08-20] MEDS: CLOPIDOGREL BISULFATE 75 MG TABLET PO SCH (20:59)
[2016-08-20] MEDS: amLODIPine BESYLATE 5 MG TABLET PO SCH (21:00)
[2016-08-20] MEDS ORDERED: NON FORMULARY ITEM (Fluticasone/Salmeterol (Advair 250-50 Diskus) 1 PUFF) IH SCH (21:00)
[2016-08-20] MEDS: traMADol 50 MG TABLET PO PRN (21:01)
[2016-08-20 23:00] VITALS: BP 110/51
[2016-08-21 01:16] LABS: BASO % 1 % (0-3); EOS % 7 % (0-3); HEMATOCRIT 34.7 % (36.0-47.0); HEMOGLOBIN 11.4 g/dL (12.0-15.5); LYMPH # 3.2 x10^3/uL (1.0-4.8); LYMPH % 39 % (24-48); MEAN CORPUSCULAR HEMOGLOBIN 31 pg (25-35); MEAN CORPUSCULAR HGB CONC 33 g/dL (31-37); MEAN CORPUSCULAR VOLUME 94 fL (79-100); MONO % 7 % (0-9); NEUT % 47 % (31-73); PLATELET COUNT 243 x10^3/uL (140-400); RED BLOOD COUNT 3.71 x10^6/uL (3.50-5.40); WHITE BLOOD COUNT 8.3 x10^3/uL (4.0-11.0)
[2016-08-21 01:25] LABS: CALCIUM 7.7 mg/dL (8.5-10.1); CREATININE 0.4 mg/dL (0.6-1.0); GFR 150.6; POTASSIUM 3.4 mmol/L (3.5-5.1)
[2016-08-21] MEDS ORDERED: CONTRAST GIVEN MC PRN (06:30)
[2016-08-21 07:00] VITALS: BP 147/57
[2016-08-21] MEDS ORDERED: IOHEXOL 350 MG/ML 100 ML VIAL. IV ONE (07:00)
--- NOTE | 2016-08-21 07:21 | EKG ---
[facility] [address] [place] [address] Test Date: 2016-08-20 Test Time: 09:49:11 Pat Name: LISHA BAUER Department: Room: 506 1 Gender: F Marina Manager: : [id number] Requested By: NOAM PEDRAZA Order Number: [id number] Reading MD: Measurements Intervals Joseph Rate: 70 P: 30 ME: 166 QRS: -4 QRSD: 94 T: 17 QT: 420 QTc: 457 Interpretive Statements SINUS RHYTHM LEFTWARD AXIS QRS(T) CONTOUR ABNORMALITY CONSIDER ANTEROLATERAL MYOCARDIAL DAMAGE RI6.01 Unconfirmed report No previous ECG available for comparison
[2016-08-21] MEDS: IPRATRPIUM/ALBUTEROL 0.5/2.5MG 3 ML NEBU. NEB SCH ×4 (08:00→20:05)
[2016-08-21] MEDS: BUDESONIDE 0.5 MG/2 ML NEBU. NEB SCH ×2 (08:00→20:06)
[2016-08-21] MEDS ORDERED: POTASSIUM CHLORIDE 20 MEQ TABLET.ER. PO ONE (08:00)
[2016-08-21] MEDS ORDERED: ENOXAPARIN 40 MG/0.4 ML SYRINGE. SQ SCH (08:00)
[2016-08-21 11:00] VITALS: BP 144/66
--- NOTE | 2016-08-21 11:05 | PDOC ---
Subjective: Subjective: Can't find her glasses (but question of if she brought her glasses to the hospital). Still abd pain - now says more toward RUQ. Had clears last night, unsure if made pain worse. No n/v. Last BM on . Objective: Vital Signs: Vital Signs Date Time Temp Pulse Resp B/P (MAP) Pulse Ox O2 Delivery O2 Flow Rate FiO2 08/21/16 07:00 97.7 82 18 147/57 (87) 92 Room Air 97.7 Labs: Laboratory Tests Test 08/20/16 15:15 08/20/16 19:05 08/21/16 01:00 Lactic Acid Level 0.9 mmol/L Troponin I Quantitative < 0.017 ng/mL < 0.017 ng/mL White Blood Count 8.3 x10^3/uL Red Blood Count 3.71 x10^6/uL Hemoglobin 11.4 g/dL Hematocrit 34.7 % Mean Corpuscular Volume 94 fL Mean Corpuscular Hemoglobin 31 pg Mean Corpuscular Hemoglobin Concent 33 g/dL Red Cell Distribution Width 14.0 % Platelet Count 243 x10^3/uL Neutrophils (%) (Auto) 47 % Lymphocytes (%) (Auto) 39 % Monocytes (%) (Auto) 7 % Eosinophils (%) (Auto) 7 % Basophils (%) (Auto) 1 % Neutrophils # (Auto) 3.9 x10^3uL Lymphocytes # (Auto) 3.2 x10^3/uL Monocytes # (Auto) 0.6 x10^3/uL Eosinophils # (Auto) 0.6 x10^3/uL Basophils # (Auto) 0.0 x10^3/uL Sodium Level 145 mmol/L Potassium Level 3.4 mmol/L Chloride Level 109 mmol/L Carbon Dioxide Level 31 mmol/L Anion Gap 5 Blood Urea Nitrogen 9 mg/dL Creatinine 0.4 mg/dL Estimated GFR (Cockcroft-Gault) 150.6 Glucose Level 91 mg/dL Calcium Level 7.7 mg/dL PE: GEN: NAD, up to chair LUNGS: clear anteriorly HEART: RRR +murm ABD: doesn't seem too tender, she points from RLQ to RUQ NEURO/PSYCH: probably a little forgetful A/P: Right-sided abd pain -initially reported RLQ, today toward RUQ -s/p appendectomy, hysterectomy, ?small bowel resection -?weight loss, reports h/o "not eating right" -h/o CAD, PVD -CT A/P w/o acute issue; lactic acid WNL -still has GB, last abd US in 2013 w/o stones Constipation - controlled -last colonoscopy 2007 w/ sigmoid diverticulosis and internal hemorrhoids -on Miralax here GERD - controlled -last EGD 2014 w/ tortuous esophagus and benign esophageal stricture (dilated), H. pylori negative gastritis, normal duodenum -on PPI here Anemia -Hgb from 13.5 to 11.4, no obvious bleeding Memory loss -- Ongoing pain, perhaps more to RUQ today. Await CTA. LA NENA CORDOBA Aug 21, 2016 11:05
[2016-08-21] MEDS: FLUTICASONE 50MCG/NASAL SPRAY 16GM BOTTLE. NS SCH (12:05)
[2016-08-21] MEDS: ESCITALOPRAM 10 MG TABLET. PO SCH (12:06)
[2016-08-21] MEDS: LOSARTAN POTASSIUM 50 MG TABLET. PO SCH (12:07)
[2016-08-21] MEDS: MONTELUKAST SODIUM 10 MG TABLET. PO SCH (12:07)
[2016-08-21] MEDS: hydroCHLOROthiazide 12.5 MG CAPSULE PO SCH (12:07)
[2016-08-21] MEDS: diazePAM 5 MG TABLET PO SCH ×2 (12:07→20:42)
[2016-08-21] MEDS: IV NORMAL SALINE 1000ML BAG 1,000 ML IV SCH (12:08)
[2016-08-21] MEDS: POLYETHYLENE GLYCOL 3350 17 GM PACKET. PO SCH (12:08)
[2016-08-21] MEDS: PANTOPRAZOLE 40 MG TABLET.DR. PO SCH (12:08)
--- NOTE | 2016-08-21 13:00 | PDOC2 ---
KEEGAN HORNE PERSONNEL RECORDS CLERK 08/21/16 1300: CARDIAC CONSULT DATE OF CONSULT Date of Consult DATE: 08/21/16 TIME: 12:40 REASON FOR CONSULT Reason for Consult: history of PAD, abd pain HISTORY OF PRESENT ILLNESS HISTORY OF PRESENT ILLNESS 78-year-old female who presented to the ED with complaints of right lower quadrant abdominal pain, described as sharp, nonradiating and with associated nausea. She denies vomiting. Her discomfort started yesterday am and she reports continued discomfort today. She denies fevers,chills diarrhea, or constipation. She denies chest pain, dyspnea or palpitations. She has a history of PAD s/p percutaneous revascularization bilaterally. She reports no complaints of claudication at this time. She denies chest pain, dyspnea or congestive symptoms. She denies problems with functional capacity in her home but reports she does not get out much. She does use a cane for ambulation. She denies lightheadedness or syncope. She is a fairly poor historian. PAST MEDICAL HISTORY Past Medical History Cardiovascular: HTN, Hyperlipidemia, Other (PAD s/p atherectomy and balloon SYSTEMS INTEGRATION ANALYST to right SF, popliteal and anterior tibial arteries in 2015 and SYSTEMS INTEGRATION ANALYST to right in 2013, ; carotid artery disease; chronic lymphedema) Pulmonary: Asthma CENTRAL NERVOUS SYSTEM: Other (No pertinent history) GI: GERD Psych: Anxiety, Depression Musculoskeletal: Osteoarthritis, right ankle fracture ENT: Other (glaucoma) Renal/: UTI PAST SURGICAL HISTORY Past Surgical History Appendectomy, Arthroscopy (right shoulder), Total hip replacement (right), Tonsillectomy, Hysterectomy, Other (RLE SYSTEMS INTEGRATION ANALYST 2013; SYSTEMS INTEGRATION ANALYST LLE 07/2015; back surgery) FAMILY HISTORY Family History non contributory due to age SOCIAL HISTORY Social History non smoker, no significant ETOH, no illicit drugs, , lives alone CURRENT MEDICATIONS CURRENT MEDICATIONS Current Medications Medications (Trade) Dose Ordered Sig/Amos Route PRN Reason Start Time Stop Time Status Last Admin Dose Admin Sodium Chloride 1,000 ml @ 125 mls/hr Q8H IV 08/20/16 13:09 08/20/16 19:25 DC 08/20/16 16:00 Polyethylene Glycol (miraLAX PACKET) 17 gm DAILY PO 08/20/16 15:15 08/21/16 12:08 Pantoprazole Sodium (Protonix) 40 mg DAILYAC PO 08/20/16 16:30 08/21/16 12:08 Potassium Chloride/Sodium Chloride 1,000 ml @ 75 mls/hr 1X ONCE IV 08/20/16 20:00 08/21/16 09:19 DC 08/20/16 20:57 Sodium Chloride 1,000 ml @ 75 mls/hr [id number] IV 08/20/16 19:30 08/21/16 12:08 Amlodipine Besylate (Norvasc) 7.5 mg HS PO 08/20/16 21:00 08/20/16 21:00 Atorvastatin Calcium (Lipitor) 20 mg QHS PO 08/20/16 21:00 08/20/16 20:58 Clonidine HCl (Catapres) 0.1 mg HS PO 08/20/16 21:00 08/20/16 20:59 Clopidogrel Bisulfate (Plavix) 75 mg HS PO 08/20/16 21:00 08/20/16 20:59 Diazepam (Valium) 2.5 mg BID PO 08/20/16 21:00 08/21/16 12:07 Latanoprost (Xalatan) 1 drop QHS OU 08/20/16 21:00 08/20/16 20:58 Losartan Potassium (Cozaar) 50 mg DAILY PO 08/21/16 09:00 08/21/16 12:07 Montelukast Sodium (Singulair) 10 mg DAILY PO 08/21/16 09:00 08/21/16 12:07 Tramadol HCl (Ultram) 50 mg Q8HRS PRN PO PAIN 08/20/16 19:45 08/20/16 21:01 Escitalopram Oxalate (Lexapro) 10 mg DAILY PO 08/21/16 09:00 08/21/16 12:06 Fluticasone Propionate (Flonase) 2 spray DAILY NS 08/21/16 09:00 08/21/16 12:05 Hydrochlorothiazide (Microzide) 12.5 mg DAILY PO 08/21/16 09:00 08/21/16 12:07 Iohexol (Omnipaque 350 Mg/ml) 90 ml 1X ONCE IV 08/21/16 07:00 08/21/16 07:01 DC 08/21/16 07:00 Potassium Chloride (Klor-Con) 40 meq 1X ONCE PO 08/21/16 08:00 08/21/16 08:02 DC 08/21/16 12:06 Enoxaparin Sodium (Lovenox 40mg Syringe) 40 mg Q24H SQ 08/21/16 08:00 08/21/16 12:09 ALLERGIES ALLERGIES: Coded Allergies: Sulfa (Sulfonamide Antibiotics) (Verified Allergy, Intermediate, 12/26/15) codeine (Verified Adverse Reaction, Intermediate, NAUSEA AND VOMITING, 08/20) TOLERATES HYDROCODONE ROS Review of System as per HPI PHYSICAL EXAM General: Alert, Oriented X3, Cooperative HEENT: Atraumatic, EOMI, Mucous membr. moist/pink Lungs: Clear to auscultation Heart: Regular rate, Normal S1, Normal S2 Abdomen: Normal bowel sounds, Other (diffuse mild tenderness ) Extremities: No cyanosis, Other (trace to 1+ edema , right > left, palpable pulses ) Neuro: Normal speech Psych/Mental Status: Mental status NL, Mood NL VITALS VITALS Vital Signs Date Time Temp Pulse Resp B/P (MAP) Pulse Ox O2 Delivery O2 Flow Rate FiO2 08/21/16 12:07 78 144/66 08/21/16 11:00 97.8 18 96 Room Air 97.8 LABS Lab: Laboratory Tests Test 08/20/16 15:15 08/20/16 19:05 08/21/16 01:00 Lactic Acid Level 0.9 mmol/L (0.4-2.0) Troponin I Quantitative < 0.017 ng/mL (0.000-0.055) < 0.017 ng/mL (0.000-0.055) White Blood Count 8.3 x10^3/uL (4.0-11.0) Red Blood Count 3.71 x10^6/uL (3.50-5.40) Hemoglobin 11.4 g/dL (12.0-15.5) Hematocrit 34.7 % (36.0-47.0) Mean Corpuscular Volume 94 fL (79-100) Mean Corpuscular Hemoglobin 31 pg (25-35) Mean Corpuscular Hemoglobin Concent 33 g/dL (31-37) Red Cell Distribution Width 14.0 % (11.5-14.5) Platelet Count 243 x10^3/uL (140-400) Neutrophils (%) (Auto) 47 % (31-73) Lymphocytes (%) (Auto) 39 % (24-48) Monocytes (%) (Auto) 7 % (0-9) Eosinophils (%) (Auto) 7 % (0-3) Basophils (%) (Auto) 1 % (0-3) Neutrophils # (Auto) 3.9 x10^3uL (1.8-7.7) Lymphocytes # (Auto) 3.2 x10^3/uL (1.0-4.8) Monocytes # (Auto) 0.6 x10^3/uL (0.0-1.1) Eosinophils # (Auto) 0.6 x10^3/uL (0.0-0.7) Basophils # (Auto) 0.0 x10^3/uL (0.0-0.2) Sodium Level 145 mmol/L (136-145) Potassium Level 3.4 mmol/L (3.5-5.1) Chloride Level 109 mmol/L (98-107) Carbon Dioxide Level 31 mmol/L (21-32) Anion Gap 5 (6-14) Blood Urea Nitrogen 9 mg/dL (7-20) Creatinine 0.4 mg/dL (0.6-1.0) Estimated GFR (Cockcroft-Gault) 150.6 Glucose Level 91 mg/dL (70-99) Calcium Level 7.7 mg/dL (8.5-10.1) IMAGES IMAGES abd CT - IMPRESSION: 1. Colonic diverticulosis. 2. Left renal cysts. 3. No acute abdominal or pelvic abnormality is detected. abd CTA pending EKG EKG SR, left axis, no acute abnormalities ECHOCARDIOGRAM ECHOCARDIOGRAM 10/12/15 The left ventricle is normal size. The left ventricular systolic function is normal and the ejection fraction is within normal range. The interatrial septum is intact with no evidence for an atrial septal defect or patent foramen ovale as noted on 2-D or Doppler imaging or saline bubble study. Negative bubble study. There is no significant aortic valvular stenosis. Doppler and Color Flow revealed mild aortic regurgitation. Doppler and Color Flow revealed trace mitral regurgitation. Doppler and Color Flow revealed mild to moderate tricuspid regurgitation. ASSESSMENT/PLAN ASSESSMENT/PLAN 1. PAD s/p percutaneous intervention as noted above. No claudication 2. abdominal pain - CT without acute abn. CTA pending/ GI consulted. 3. hypertension - home meds 4. hyperlipidemia - statin Await CTA. If no vascular issues, further eval by endoscopy per GI. Problems: MYRTLE GAMINO MD 08/22/16 0731: CARDIAC CONSULT ALLERGIES ALLERGIES: Coded Allergies: Sulfa (Sulfonamide Antibiotics) (Verified Allergy, Intermediate, 12/26/15) codeine (Verified Adverse Reaction, Intermediate, NAUSEA AND VOMITING, 08/20) TOLERATES HYDROCODONE ASSESSMENT/PLAN ASSESSMENT/PLAN Patient seen and examined 08/21/16. Agree with MANAGER AUDIO's assessment and plan. Continue workup for abdominal pain per gastroenterology team. PAD status stable. Continue current medical regimen. Thank you for your consultation. Problems: KEEGAN HORNE APRN Aug 21, 2016 13:00 MYRTLE GAMINO MD Aug 22, 2016 07:31
--- NOTE | 2016-08-21 13:21 | PDOC ---
PROGRESS NOTES Chief Complaint Chief Complaint Nausea and abdominal pain: neg work up so far HTN : controlled Hypokalemia: resolved GERD: On Protonix GEn weakness History of Present Illness History of Present Illness Abdominal pain better Eating PO CTA done , read pending CT abd is neg PT recs SNU, pt does notw ant SNU, wants HH only Grandkids can come HEnce will keep OBS GI note reviewed PLAN: Await CTA Keep OBS IF neg home ray on HH Current IVF to consume cont pt/ot Vitals Vitals Vital Signs Date Time Temp Pulse Resp B/P (MAP) Pulse Ox O2 Delivery O2 Flow Rate FiO2 08/21/16 12:07 78 144/66 08/21/16 11:00 97.8 18 96 Room Air 97.8 Physical Exam General: Alert, Oriented X3, Cooperative Heart: Regular rate, Normal S1, Normal S2 Lungs: Clear Abdomen: Normal bowel sounds, Other (diffuse mild tenderness ) Extremities: No cyanosis, Other (trace to 1+ edema , right > left, palpable pulses ) Labs LABS Laboratory Tests Test 08/20/16 15:15 08/20/16 19:05 08/21/16 01:00 Lactic Acid Level 0.9 mmol/L (0.4-2.0) Troponin I Quantitative < 0.017 ng/mL (0.000-0.055) < 0.017 ng/mL (0.000-0.055) White Blood Count 8.3 x10^3/uL (4.0-11.0) Red Blood Count 3.71 x10^6/uL (3.50-5.40) Hemoglobin 11.4 g/dL (12.0-15.5) Hematocrit 34.7 % (36.0-47.0) Mean Corpuscular Volume 94 fL (79-100) Mean Corpuscular Hemoglobin 31 pg (25-35) Mean Corpuscular Hemoglobin Concent 33 g/dL (31-37) Red Cell Distribution Width 14.0 % (11.5-14.5) Platelet Count 243 x10^3/uL (140-400) Neutrophils (%) (Auto) 47 % (31-73) Lymphocytes (%) (Auto) 39 % (24-48) Monocytes (%) (Auto) 7 % (0-9) Eosinophils (%) (Auto) 7 % (0-3) Basophils (%) (Auto) 1 % (0-3) Neutrophils # (Auto) 3.9 x10^3uL (1.8-7.7) Lymphocytes # (Auto) 3.2 x10^3/uL (1.0-4.8) Monocytes # (Auto) 0.6 x10^3/uL (0.0-1.1) Eosinophils # (Auto) 0.6 x10^3/uL (0.0-0.7) Basophils # (Auto) 0.0 x10^3/uL (0.0-0.2) Sodium Level 145 mmol/L (136-145) Potassium Level 3.4 mmol/L (3.5-5.1) Chloride Level 109 mmol/L (98-107) Carbon Dioxide Level 31 mmol/L (21-32) Anion Gap 5 (6-14) Blood Urea Nitrogen 9 mg/dL (7-20) Creatinine 0.4 mg/dL (0.6-1.0) Estimated GFR (Cockcroft-Gault) 150.6 Glucose Level 91 mg/dL (70-99) Calcium Level 7.7 mg/dL (8.5-10.1) Review of Systems Review of Systems abd pain, better - all else is neg Assessment and Plan Assessmemt and Plan Problems Medical Problems: (1) Right lower quadrant abdominal pain Status: Acute Problems: Comment Review of Relevant I have reviewed the following items delaney (where applicable) has been applied. Labs Laboratory Tests Test 08/20/16 10:20 08/20/16 10:35 08/20/16 15:15 08/20/16 19:05 White Blood Count 10.0 x10^3/uL (4.0-11.0) Red Blood Count 4.36 x10^6/uL (3.50-5.40) Hemoglobin 13.5 g/dL (12.0-15.5) Hematocrit 39.3 % (36.0-47.0) Mean Corpuscular Volume 90 fL (79-100) Mean Corpuscular Hemoglobin 31 pg (25-35) Mean Corpuscular Hemoglobin Concent 34 g/dL (31-37) Red Cell Distribution Width 13.8 % (11.5-14.5) Platelet Count 286 x10^3/uL (140-400) Neutrophils (%) (Auto) 59 % (31-73) Lymphocytes (%) (Auto) 30 % (24-48) Monocytes (%) (Auto) 5 % (0-9) Eosinophils (%) (Auto) 6 % (0-3) Basophils (%) (Auto) 1 % (0-3) Neutrophils # (Auto) 5.9 x10^3uL (1.8-7.7) Lymphocytes # (Auto) 3.0 x10^3/uL (1.0-4.8) Monocytes # (Auto) 0.5 x10^3/uL (0.0-1.1) Eosinophils # (Auto) 0.6 x10^3/uL (0.0-0.7) Basophils # (Auto) 0.1 x10^3/uL (0.0-0.2) Sodium Level 139 mmol/L (136-145) Potassium Level 3.2 mmol/L (3.5-5.1) Chloride Level 100 mmol/L (98-107) Carbon Dioxide Level 34 mmol/L (21-32) Anion Gap 5 (6-14) Blood Urea Nitrogen 13 mg/dL (7-20) Creatinine 0.5 mg/dL (0.6-1.0) Estimated GFR (Cockcroft-Gault) 116.4 Glucose Level 104 mg/dL (70-99) Lactic Acid Level 1.4 mmol/L (0.4-2.0) 0.9 mmol/L (0.4-2.0) Calcium Level 8.5 mg/dL (8.5-10.1) Total Bilirubin 0.6 mg/dL (0.2-1.0) Direct Bilirubin 0.1 mg/dL (0.0-0.2) Aspartate Amino Transf (AST/SGOT) 18 U/L (15-37) Alanine Aminotransferase (ALT/SGPT) 21 U/L (14-59) Alkaline Phosphatase 94 U/L (46-116) Troponin I Quantitative < 0.017 ng/mL (0.000-0.055) < 0.017 ng/mL (0.000-0.055) Total Protein 6.7 g/dL (6.4-8.2) Albumin 3.4 g/dL (3.4-5.0) Lipase 158 U/L (73-393) Urine Collection Type Void Urine Color Yellow Urine Clarity Clear Urine pH 7.5 Urine Specific [place] <=1.005 Urine Protein Negative mg/dL (NEG-TRACE) Urine Glucose (UA) Negative mg/dL (NEG) Urine Ketones (Stick) Negative mg/dL (NEG) Urine Blood Negative (NEG) Urine Nitrite Negative (NEG) Urine Bilirubin Negative (NEG) Urine Urobilinogen Dipstick 0.2 mg/dL (0.2 mg/dL) Urine Leukocyte Esterase Small (NEG) Urine RBC 0 /HPF (0-2) Urine WBC 1-4 /HPF (0-4) Urine Squamous Epithelial Cells Few /LPF Urine Amorphous Sediment Present /HPF Urine Bacteria Few /HPF (0-FEW) Test 08/21/16 01:00 White Blood Count 8.3 x10^3/uL (4.0-11.0) Red Blood Count 3.71 x10^6/uL (3.50-5.40) Hemoglobin 11.4 g/dL (12.0-15.5) Hematocrit 34.7 % (36.0-47.0) Mean Corpuscular Volume 94 fL (79-100) Mean Corpuscular Hemoglobin 31 pg (25-35) Mean Corpuscular Hemoglobin Concent 33 g/dL (31-37) Red Cell Distribution Width 14.0 % (11.5-14.5) Platelet Count 243 x10^3/uL (140-400) Neutrophils (%) (Auto) 47 % (31-73) Lymphocytes (%) (Auto) 39 % (24-48) Monocytes (%) (Auto) 7 % (0-9) Eosinophils (%) (Auto) 7 % (0-3) Basophils (%) (Auto) 1 % (0-3) Neutrophils # (Auto) 3.9 x10^3uL (1.8-7.7) Lymphocytes # (Auto) 3.2 x10^3/uL (1.0-4.8) Monocytes # (Auto) 0.6 x10^3/uL (0.0-1.1) Eosinophils # (Auto) 0.6 x10^3/uL (0.0-0.7) Basophils # (Auto) 0.0 x10^3/uL (0.0-0.2) Sodium Level 145 mmol/L (136-145) Potassium Level 3.4 mmol/L (3.5-5.1) Chloride Level 109 mmol/L (98-107) Carbon Dioxide Level 31 mmol/L (21-32) Anion Gap 5 (6-14) Blood Urea Nitrogen 9 mg/dL (7-20) Creatinine 0.4 mg/dL (0.6-1.0) Estimated GFR (Cockcroft-Gault) 150.6 Glucose Level 91 mg/dL (70-99) Calcium Level 7.7 mg/dL (8.5-10.1) Troponin I Quantitative < 0.017 ng/mL (0.000-0.055) Laboratory Tests Test 08/20/16 15:15 08/20/16 19:05 08/21/16 01:00 Lactic Acid Level 0.9 mmol/L (0.4-2.0) Troponin I Quantitative < 0.017 ng/mL (0.000-0.055) < 0.017 ng/mL (0.000-0.055) White Blood Count 8.3 x10^3/uL (4.0-11.0) Red Blood Count 3.71 x10^6/uL (3.50-5.40) Hemoglobin 11.4 g/dL (12.0-15.5) Hematocrit 34.7 % (36.0-47.0) Mean Corpuscular Volume 94 fL (79-100) Mean Corpuscular Hemoglobin 31 pg (25-35) Mean Corpuscular Hemoglobin Concent 33 g/dL (31-37) Red Cell Distribution Width 14.0 % (11.5-14.5) Platelet Count 243 x10^3/uL (140-400) Neutrophils (%) (Auto) 47 % (31-73) Lymphocytes (%) (Auto) 39 % (24-48) Monocytes (%) (Auto) 7 % (0-9) Eosinophils (%) (Auto) 7 % (0-3) Basophils (%) (Auto) 1 % (0-3) Neutrophils # (Auto) 3.9 x10^3uL (1.8-7.7) Lymphocytes # (Auto) 3.2 x10^3/uL (1.0-4.8) Monocytes # (Auto) 0.6 x10^3/uL (0.0-1.1) Eosinophils # (Auto) 0.6 x10^3/uL (0.0-0.7) Basophils # (Auto) 0.0 x10^3/uL (0.0-0.2) Sodium Level 145 mmol/L (136-145) Potassium Level 3.4 mmol/L (3.5-5.1) Chloride Level 109 mmol/L (98-107) Carbon Dioxide Level 31 mmol/L (21-32) Anion Gap 5 (6-14) Blood Urea Nitrogen 9 mg/dL (7-20) Creatinine 0.4 mg/dL (0.6-1.0) Estimated GFR (Cockcroft-Gault) 150.6 Glucose Level 91 mg/dL (70-99) Calcium Level 7.7 mg/dL (8.5-10.1) Medications Current Medications Hydromorphone HCl (Dilaudid) 0.5 mg PRN Q1HR PRN IV SEVERE PAIN Last administered on 08/20/16 15:59; Start 08/20/16 at 10:30 Ondansetron HCl (Zofran) 4 mg 1X ONCE IV Last administered on 08/20/16 10:42; Start 08/20/16 at 10:30; Stop 08/20/16 at 10:33; Status DC Sodium Chloride 500 ml @ 500 mls/hr 1X ONCE IV Last administered on 08/20/16 10:41; Start 08/20/16 at 10:30; Stop 08/20/16 at 11:29; Status DC Iohexol (Omnipaque 300 Mg/ml) 75 ml 1X ONCE IV Last administered on 08/20/16 11:36; Start 08/20/16 at 11:15; Stop 08/20/16 at 11:25; Status DC Info (Do NOT chart on this entry -- for MONITORING) 1 each PRN DAILY PRN MC SEE COMMENTS; Start 08/20/16 at 11:30; Stop 08/21/16 at 12:44; Status DC Hydromorphone HCl (Dilaudid) 0.5 mg 1X ONCE IVP ; Start 08/20/16 at 11:45; Stop 08/20/16 at 11:46; Status DC Ondansetron HCl (Zofran) 4 mg PRN Q8HRS PRN IV NAUSEA/VOMITING; Start 08/20/16 at 13:15; Stop 08/21/16 at 12:47; Status DC Morphine Sulfate 2 mg PRN Q2HR PRN IV PAIN; Start 08/20/16 at 13:15; Stop at 13:14; Status DC Sodium Chloride 1,000 ml @ 125 mls/hr Q8H IV Last administered on 08/20/16 16: 00; Start 08/20/16 at 13:09; Stop 08/20/16 at 19:25; Status DC Polyethylene Glycol (miraLAX PACKET) 17 gm DAILY PO Last administered on 12:08; Start 08/20/16 at 15:15 Pantoprazole Sodium (Protonix) 40 mg DAILYAC PO Last administered on 08/21/16 12:08; Start 08/20/16 at 16:30 Potassium Chloride/Sodium Chloride 1,000 ml @ 75 mls/hr 1X ONCE IV Last administered on 08/20/16 20:57; Start 08/20/16 at 20:00; Stop 08/21/16 at 09:19; Status DC Sodium Chloride 1,000 ml @ 75 mls/hr [id number] IV Last administered on 08/21/16 12:08; Start 08/20/16 at 19:30 Acetaminophen (Tylenol) 325 mg PRN Q6HRS PRN PO MILD PAIN / TEMP; Start at 19:30 Hydralazine HCl (Apresoline) 10 mg PRN Q4HRS PRN IVP ELEVATED BP, SEE COMMENTS ; Start 08/20/16 at 19:30 Ondansetron HCl (Zofran) 4 mg PRN Q8HRS PRN IV NAUSEA/VOMITING; Start 08/20/16 at 19:30 Albuterol Sulfate (Ventolin Neb Soln) 2.5 mg PRN Q4HRS PRN NEB SHORTNESS OF BREATH; Start 08/20/16 at 19:30 Amlodipine Besylate (Norvasc) 7.5 mg HS PO Last administered on 08/20/16 21:00 ; Start 08/20/16 at 21:00 Atorvastatin Calcium (Lipitor) 20 mg QHS PO Last administered on 08/20/16 20:58 ; Start 08/20/16 at 21:00 Benzonatate (Tessalon Perle) 200 mg TID PRN PO COUGH; Start 08/20/16 at 19:45 Clonidine HCl (Catapres) 0.1 mg HS PO Last administered on 08/20/16 20:59; Start 08/20/16 at 21:00 Clopidogrel Bisulfate (Plavix) 75 mg HS PO Last administered on 08/20/16 20:59 ; Start 08/20/16 at 21:00 Diazepam (Valium) 2.5 mg BID PO Last administered on 08/21/16 12:07; Start 08/20 at 21:00 Latanoprost (Xalatan) 1 drop QHS OU Last administered on 08/20/16 20:58; Start 08/20/16 at 21:00 Losartan Potassium (Cozaar) 50 mg DAILY PO Last administered on 08/21/16 12:07 ; Start 08/21/16 at 09:00 Montelukast Sodium (Singulair) 10 mg DAILY PO Last administered on 08/21/16 12: 07; Start 08/21/16 at 09:00 Tramadol HCl (Ultram) 50 mg Q8HRS PRN PO PAIN Last administered on 08/20/16 21: 01; Start 08/20/16 at 19:45 Non-Formulary Medication 108 mcg Q4HRS PRN INH SHORTNESS OF BREATH; Start at 19:45; Status UNV Escitalopram Oxalate (Lexapro) 10 mg DAILY PO Last administered on 08/21/16 12: 06; Start 08/21/16 at 09:00 Fluticasone Propionate (Flonase) 2 spray DAILY NS Last administered on 12:05; Start 08/21/16 at 09:00 Non-Formulary Medication 1 puff BID IH ; Start 08/20/16 at 21:00; Status UNV Hydrochlorothiazide (Microzide) 12.5 mg DAILY PO Last administered on 08/21/16 12:07; Start 08/21/16 at 09:00 Albuterol/ Ipratropium (Duoneb) 3 ml RTQID NEB ; Start 08/20/16 at 20:00 Budesonide (Pulmicort) 0.5 mg RTBID NEB ; Start 08/20/16 at 20:00 Iohexol (Omnipaque 350 Mg/ml) 90 ml 1X ONCE IV Last administered on 08/21/16 07:00; Start 08/21/16 at 07:00; Stop 08/21/16 at 07:01; Status DC Info (Do NOT chart on this entry -- for MONITORING) 1 each PRN DAILY PRN MC SEE COMMENTS; Start 08/21/16 at 06:30; Stop 08/23/16 at 06:29 Potassium Chloride (Klor-Con) 40 meq 1X ONCE PO Last administered on 08/21/16 12:06; Start 08/21/16 at 08:00; Stop 08/21/16 at 08:02; Status DC Enoxaparin Sodium (Lovenox 40mg Syringe) 40 mg Q24H SQ Last administered on 08/21 12:09; Start 08/21/16 at 08:00; Stop 08/21/16 at 12:45; Status DC Enoxaparin Sodium (Lovenox 30mg Syringe) 30 mg DAILY SQ ; Start 08/22/16 at 09:00 Active Scripts Active Keflex (Cephalexin) 250 Mg Capsule 1 Cap PO TID Reported Betimol (Timolol) 5 Ml Drops 5 Ml OP Xalatan (Latanoprost) 2.5 Ml Drops 1 Drop EACHEYE QHS Escitalopram Oxalate 10 Mg Tablet 1 Tab PO DAILY Tramadol Hcl 50 Mg Tablet 1 Tab PO Q8HRS PRN Advair 250-50 Diskus (Fluticasone/Salmeterol) 1 Each Disk.w.dev 1 Puff IH BID Proair Hfa Inhaler (Albuterol Sulfate) 8.5 Gm Hfa.aer.ad 108 Mcg INH Q4HRS PRN Losartan Potassium 50 Mg Tablet 50 Mg PO DAILY Amlodipine Besylate 5 Mg Tablet 7.5 Mg PO HS Diazepam 5 Mg Tablet 2.5 Mg PO BID Hydrochlorothiazide Tablet (Hydrochlorothiazide) 12.5 Mg Tablet 1 Tab PO DAILY Atorvastatin Calcium 20 Mg Tablet 20 Mg PO DAILY Fluticasone Propionate 15.8 Ml [place].susp 50 Mcg NS DAILY Benzonatate 100 Mg Capsule 200 Mg PO TID PRN Plavix (Clopidogrel Bisulfate) 75 Mg Tablet 75 Mg PO HS 30 Days Montelukast Sodium Tablet (Montelukast Sodium) 10 Mg Tablet 10 Mg PO DAILY Clonidine Hcl 0.1 Mg Tablet 0.1 Mg PO HS Vitals/I & O Vital Sign - Last 24 Hours 08/20/16 08/20/16 08/20/16 08/20/16 13:47 14:19 16:00 16:29 Temp 98.1 98.1 Pulse 68 66 70 Resp 18 18 18 B/P (MAP) 136/78 (97) 146/65 (92) 164/71 (102) Pulse Ox 98 92 99 O2 Delivery Room Air Room Air Room Air Room Air 08/20/16 08/20/16 08/20/16 08/20/16 17:43 17:58 19:00 19:48 Temp 98.1 97.9 98.1 97.9 Pulse 70 72 Resp 18 B/P (MAP) 164/71 (102) 148/48 (81) Pulse Ox 99 93 O2 Delivery Room Air Room Air Room Air 08/20/16 08/20/16 08/20/16 08/20/16 19:54 20:59 21:00 21:01 Pulse 72 72 Resp 18 B/P (MAP) 148/48 148/48 Pulse Ox 94 O2 Delivery Room Air Room Air 08/20/16 08/20/16 08/21/16 08/21/16 22:47 23:00 07:00 08:00 Temp 98.0 97.7 98.0 97.7 Pulse 64 82 Resp 17 18 18 B/P (MAP) 110/51 (70) 147/57 (87) Pulse Ox 93 92 O2 Delivery Room Air Room Air Room Air Room Air 08/21/16 08/21/16 11:00 12:07 Temp 97.8 97.8 Pulse 78 78 Resp 18 B/P (MAP) 144/66 (92) 144/66 Pulse Ox 96 O2 Delivery Room Air Intake and Output 08/20/16 08/20/16 08/21/16 15:00 23:00 07:00 Intake Total 500 ml 580 ml 600 ml Balance 500 ml 580 ml 600 ml JOSE ESPARZA MD Aug 21, 2016 13:21
--- NOTE | 2016-08-21 14:28 | RAD ---
CTA of the abdomen and pelvis with contrast, 08/21/2016: History: Chronic right lower quadrant pain Multidetector CT imaging was performed following an IV bolus injection of iodinated contrast material. Multiplanar reconstructions were produced including 3-D volume rendered reconstructions of the aorta and its major branches. There is considerable calcific plaquing of the abdominal aorta and its branches. No aortic aneurysm or dissection is evident. The celiac and superior mesenteric arterial origins are widely patent. There is moderate calcific plaquing involving the midportion of the superior mesenteric artery without evidence of high-grade stenosis. There is only mild narrowing of the proximal renal arteries bilaterally due to moderate calcific plaquing. A patent inferior mesenteric artery is present. The common iliac and external iliac arteries are widely patent. There is moderate plaquing of the internal iliac arteries without evidence of high-grade stenosis. There is mild calcific plaquing at the right common femoral level. More extensive calcific plaquing is present at the left common femoral level with moderate narrowing of the distal left common femoral artery. A tiny amount of bilateral pleural fluid is now present with mild atelectasis in the posterior gutters bilaterally. There is radiopaque material within the gallbladder compatible with vicarious excretion of IV contrast. There is moderate colonic diverticulosis. A small right inguinal hernia is now hernia is now evident, containing a nonobstructed loop of small bowel. This is best seen on image 113 of series #4. IMPRESSION: 1. 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 2. No evidence of aortic aneurysm or dissection. 3. Moderate narrowing of the left common femoral artery due to calcific plaquing. 4. Right inguinal hernia. 5. Tiny bilateral pleural effusions have developed PQRS Compliance Statement: One or more of the following individualized dose reduction techniques were utilized for this examination: 1. Automated exposure control 2. Adjustment of the mA and/or kV according to patient size 3. Use of iterative reconstruction technique
[2016-08-21 15:00] VITALS: BP 177/72
[2016-08-21 19:00] VITALS: BP 96/75
[2016-08-21] MEDS: CLOPIDOGREL BISULFATE 75 MG TABLET PO SCH (20:43)
[2016-08-21] MEDS: ATORVASTATIN CALCIUM 20 MG TABLET PO SCH (20:43)
[2016-08-21] MEDS: traMADol 50 MG TABLET PO PRN (20:43)
[2016-08-21] MEDS: BENZONATATE 100 MG CAPSULE. PO PRN (20:45)
[2016-08-21] MEDS: LATANOPROST 0.005% OPHTH SOLUTION 2.5ML BOTTLE. OU SCH (20:45)
[2016-08-21] MEDS: cloNIDine HCL 0.1 MG TABLET PO SCH (20:45)
[2016-08-21] MEDS: amLODIPine BESYLATE 5 MG TABLET PO SCH (20:46)
[2016-08-21 23:00] VITALS: BP 107/46
[2016-08-22 07:23] VITALS: BP 134/77
[2016-08-22] MEDS: IPRATRPIUM/ALBUTEROL 0.5/2.5MG 3 ML NEBU. NEB SCH ×4 (07:25→19:50)
[2016-08-22] MEDS: BUDESONIDE 0.5 MG/2 ML NEBU. NEB SCH ×2 (07:26→19:50)
[2016-08-22] MEDS: PANTOPRAZOLE 40 MG TABLET.DR. PO SCH (08:05)
[2016-08-22] MEDS: POLYETHYLENE GLYCOL 3350 17 GM PACKET. PO SCH (08:51)
[2016-08-22] MEDS: MONTELUKAST SODIUM 10 MG TABLET. PO SCH (08:51)
[2016-08-22] MEDS: hydroCHLOROthiazide 12.5 MG CAPSULE PO SCH (08:51)
[2016-08-22] MEDS: ESCITALOPRAM 10 MG TABLET. PO SCH (08:51)
[2016-08-22] MEDS: FLUTICASONE 50MCG/NASAL SPRAY 16GM BOTTLE. NS SCH (08:51)
[2016-08-22] MEDS: LOSARTAN POTASSIUM 50 MG TABLET. PO SCH (08:51)
[2016-08-22] MEDS: ENOXAPARIN 30 MG/0.3 ML SYRINGE. SQ SCH (08:51)
[2016-08-22] MEDS: diazePAM 5 MG TABLET PO SCH ×2 (08:52→19:53)
[2016-08-22 10:42] VITALS: BP 129/69
--- NOTE | 2016-08-22 10:43 | PDOC ---
Subjective: Subjective: Still has pain, comes and goes. Objective: Vital Signs: Vital Signs Date Time Temp Pulse Resp B/P (MAP) Pulse Ox O2 Delivery O2 Flow Rate FiO2 08/22/16 08:51 79 134/77 08/22/16 07:27 98 Room Air 08/22/16 07:23 99.0 18 99.0 Imaging: CTA A/P 08/21/16 There is considerable calcific plaquing of the abdominal aorta and its branches. No aortic aneurysm or dissection is evident. The celiac and superior mesenteric arterial origins are widely patent. There is moderate calcific plaquing involving the midportion of the superior mesenteric artery without evidence of high-grade stenosis. There is only mild narrowing of the proximal renal arteries bilaterally due to moderate calcific plaquing. A patent inferior mesenteric artery is present. The common iliac and external iliac arteries are widely patent. There is moderate plaquing of the internal iliac arteries without evidence of high-grade stenosis. There is mild calcific plaquing at the right common femoral level. More extensive calcific plaquing is present at the left common femoral level with moderate narrowing of the distal left common femoral artery. A tiny amount of bilateral pleural fluid is now present with mild atelectasis in the posterior gutters bilaterally. There is radiopaque material within the gallbladder compatible with vicarious excretion of IV contrast. There is moderate colonic diverticulosis. A small right inguinal hernia is now hernia is now evident, containing a nonobstructed loop of small bowel. This is best seen on image 113 of series #4. IMPRESSION: 1. 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 2. No evidence of aortic aneurysm or dissection. 3. Moderate narrowing of the left common femoral artery due to calcific plaquing. 4. Right inguinal hernia. 5. Tiny bilateral pleural effusions have developed PE: GEN: NAD, was asleep LUNGS: clear HEART: +murm ABD: RLQ tenderness w/ soft prominence (?hernia) NEURO/PSYCH: A & O 3 A/P: Right-sided abd pain -initially reported RLQ, today toward RUQ -s/p appendectomy, hysterectomy, ?small bowel resection -CT A/P w/o acute issue, CTA as above w/ right ing hernia containing loop of small bowel -still has GB, last abd US in 2013 w/o stones -constipation controlled w/ Miralax, last colonoscopy 2007 -GERD controlled w/ PPI, last EGD 2014 -- Await surgical opinion. LA NENA CORDOBA Aug 22, 2016 10:43
--- NOTE | 2016-08-22 12:24 | PDOC ---
PROGRESS NOTES Chief Complaint Chief Complaint NO abd pain CTA shows inguinal hernia and some calcific plaques in arteries She came in for abd pain Plan: Await GS opinion before discharging home She needs SNU, Agreeable only to HH but if latanya dtr would agree then she might be agreeable Dtr: [id number] History of Present Illness History of Present Illness Abdominal pain better Eating PO CTA done , read pending CT abd is neg PT recs SNU, pt does notw ant SNU, wants HH only Grandkids can come HEnce will keep OBS GI note reviewed PLAN: Await CTA Keep OBS IF neg home ray on HH Current IVF to consume cont pt/ot Vitals Vitals Vital Signs Date Time Temp Pulse Resp B/P (MAP) Pulse Ox O2 Delivery O2 Flow Rate FiO2 08/22/16 11:06 96 Room Air 08/22/16 10:42 98.1 84 18 129/69 (89) 98.1 Physical Exam General: Alert, Oriented X3, Cooperative Heart: Regular rate, Normal S1, Normal S2 Lungs: Clear Abdomen: Normal bowel sounds, Other (diffuse mild tenderness ) Extremities: No cyanosis, Other (trace to 1+ edema , right > left, palpable pulses ) Review of Systems Review of Systems denies 14 pt reviewed Assessment and Plan Assessmemt and Plan Problems Medical Problems: (1) Right lower quadrant abdominal pain Status: Acute Problems: Comment Review of Relevant I have reviewed the following items delaney (where applicable) has been applied. Labs Laboratory Tests Test 08/20/16 15:15 08/20/16 19:05 08/21/16 01:00 Lactic Acid Level 0.9 mmol/L (0.4-2.0) Troponin I Quantitative < 0.017 ng/mL (0.000-0.055) < 0.017 ng/mL (0.000-0.055) White Blood Count 8.3 x10^3/uL (4.0-11.0) Red Blood Count 3.71 x10^6/uL (3.50-5.40) Hemoglobin 11.4 g/dL (12.0-15.5) Hematocrit 34.7 % (36.0-47.0) Mean Corpuscular Volume 94 fL (79-100) Mean Corpuscular Hemoglobin 31 pg (25-35) Mean Corpuscular Hemoglobin Concent 33 g/dL (31-37) Red Cell Distribution Width 14.0 % (11.5-14.5) Platelet Count 243 x10^3/uL (140-400) Neutrophils (%) (Auto) 47 % (31-73) Lymphocytes (%) (Auto) 39 % (24-48) Monocytes (%) (Auto) 7 % (0-9) Eosinophils (%) (Auto) 7 % (0-3) Basophils (%) (Auto) 1 % (0-3) Neutrophils # (Auto) 3.9 x10^3uL (1.8-7.7) Lymphocytes # (Auto) 3.2 x10^3/uL (1.0-4.8) Monocytes # (Auto) 0.6 x10^3/uL (0.0-1.1) Eosinophils # (Auto) 0.6 x10^3/uL (0.0-0.7) Basophils # (Auto) 0.0 x10^3/uL (0.0-0.2) Sodium Level 145 mmol/L (136-145) Potassium Level 3.4 mmol/L (3.5-5.1) Chloride Level 109 mmol/L (98-107) Carbon Dioxide Level 31 mmol/L (21-32) Anion Gap 5 (6-14) Blood Urea Nitrogen 9 mg/dL (7-20) Creatinine 0.4 mg/dL (0.6-1.0) Estimated GFR (Cockcroft-Gault) 150.6 Glucose Level 91 mg/dL (70-99) Calcium Level 7.7 mg/dL (8.5-10.1) Microbiology 08/20/16 Urine Culture - Final, Complete 08/20/16 Urine Culture Result 1 (KARLOS) - Final, Complete Medications Current Medications Hydromorphone HCl (Dilaudid) 0.5 mg PRN Q1HR PRN IV SEVERE PAIN Last administered on 08/20/16 15:59; Start 08/20/16 at 10:30 Ondansetron HCl (Zofran) 4 mg 1X ONCE IV Last administered on 08/20/16 10:42; Start 08/20/16 at 10:30; Stop 08/20/16 at 10:33; Status DC Sodium Chloride 500 ml @ 500 mls/hr 1X ONCE IV Last administered on 08/20/16 10:41; Start 08/20/16 at 10:30; Stop 08/20/16 at 11:29; Status DC Iohexol (Omnipaque 300 Mg/ml) 75 ml 1X ONCE IV Last administered on 08/20/16 11:36; Start 08/20/16 at 11:15; Stop 08/20/16 at 11:25; Status DC Info (Do NOT chart on this entry -- for MONITORING) 1 each PRN DAILY PRN MC SEE COMMENTS; Start 08/20/16 at 11:30; Stop 08/21/16 at 12:44; Status DC Hydromorphone HCl (Dilaudid) 0.5 mg 1X ONCE IVP ; Start 08/20/16 at 11:45; Stop 08/20/16 at 11:46; Status DC Ondansetron HCl (Zofran) 4 mg PRN Q8HRS PRN IV NAUSEA/VOMITING; Start 08/20/16 at 13:15; Stop 08/21/16 at 12:47; Status DC Morphine Sulfate 2 mg PRN Q2HR PRN IV PAIN; Start 08/20/16 at 13:15; Stop at 13:14; Status DC Sodium Chloride 1,000 ml @ 125 mls/hr Q8H IV Last administered on 08/20/16 16: 00; Start 08/20/16 at 13:09; Stop 08/20/16 at 19:25; Status DC Polyethylene Glycol (miraLAX PACKET) 17 gm DAILY PO Last administered on 08:51; Start 08/20/16 at 15:15 Pantoprazole Sodium (Protonix) 40 mg DAILYAC PO Last administered on 08/22/16 08:05; Start 08/20/16 at 16:30 Potassium Chloride/Sodium Chloride 1,000 ml @ 75 mls/hr 1X ONCE IV Last administered on 08/20/16 20:57; Start 08/20/16 at 20:00; Stop 08/21/16 at 09:19; Status DC Sodium Chloride 1,000 ml @ 75 mls/hr [id number] IV Last administered on 08/21/16 12:08; Start 08/20/16 at 19:30; Stop 08/21/16 at 13:23; Status DC Acetaminophen (Tylenol) 325 mg PRN Q6HRS PRN PO MILD PAIN / TEMP Last administered on 08/21/16 20:43; Start 08/20/16 at 19:30 Hydralazine HCl (Apresoline) 10 mg PRN Q4HRS PRN IVP ELEVATED BP, SEE COMMENTS ; Start 08/20/16 at 19:30 Ondansetron HCl (Zofran) 4 mg PRN Q8HRS PRN IV NAUSEA/VOMITING; Start 08/20/16 at 19:30 Albuterol Sulfate (Ventolin Neb Soln) 2.5 mg PRN Q4HRS PRN NEB SHORTNESS OF BREATH; Start 08/20/16 at 19:30 Amlodipine Besylate (Norvasc) 7.5 mg HS PO Last administered on 08/20/16 21:00 ; Start 08/20/16 at 21:00 Atorvastatin Calcium (Lipitor) 20 mg QHS PO Last administered on 08/21/16 20:43 ; Start 08/20/16 at 21:00 Benzonatate (Tessalon Perle) 200 mg TID PRN PO COUGH Last administered on 20:45; Start 08/20/16 at 19:45 Clonidine HCl (Catapres) 0.1 mg HS PO Last administered on 08/21/16 20:45; Start 08/20/16 at 21:00 Clopidogrel Bisulfate (Plavix) 75 mg HS PO Last administered on 08/21/16 20:43 ; Start 08/20/16 at 21:00 Diazepam (Valium) 2.5 mg BID PO Last administered on 08/22/16 08:52; Start 08/20 at 21:00 Latanoprost (Xalatan) 1 drop QHS OU Last administered on 08/21/16 20:45; Start 08/20/16 at 21:00 Losartan Potassium (Cozaar) 50 mg DAILY PO Last administered on 08/22/16 08:51 ; Start 08/21/16 at 09:00 Montelukast Sodium (Singulair) 10 mg DAILY PO Last administered on 08/22/16 08: 51; Start 08/21/16 at 09:00 Tramadol HCl (Ultram) 50 mg Q8HRS PRN PO PAIN Last administered on 08/21/16 20: 43; Start 08/20/16 at 19:45 Non-Formulary Medication 108 mcg Q4HRS PRN INH SHORTNESS OF BREATH; Start at 19:45; Status UNV Escitalopram Oxalate (Lexapro) 10 mg DAILY PO Last administered on 08/22/16 08: 51; Start 08/21/16 at 09:00 Fluticasone Propionate (Flonase) 2 spray DAILY NS Last administered on 08:51; Start 08/21/16 at 09:00 Non-Formulary Medication 1 puff BID IH ; Start 08/20/16 at 21:00; Status UNV Hydrochlorothiazide (Microzide) 12.5 mg DAILY PO Last administered on 08/22/16 08:51; Start 08/21/16 at 09:00 Albuterol/ Ipratropium (Duoneb) 3 ml RTQID NEB Last administered on 08/22/16 11 :06; Start 08/20/16 at 20:00 Budesonide (Pulmicort) 0.5 mg RTBID NEB Last administered on 08/22/16 07:26; Start 08/20/16 at 20:00 Iohexol (Omnipaque 350 Mg/ml) 90 ml 1X ONCE IV Last administered on 08/21/16 07:00; Start 08/21/16 at 07:00; Stop 08/21/16 at 07:01; Status DC Info (Do NOT chart on this entry -- for MONITORING) 1 each PRN DAILY PRN MC SEE COMMENTS; Start 08/21/16 at 06:30; Stop 08/23/16 at 06:29 Potassium Chloride (Klor-Con) 40 meq 1X ONCE PO Last administered on 08/21/16 12:06; Start 08/21/16 at 08:00; Stop 08/21/16 at 08:02; Status DC Enoxaparin Sodium (Lovenox 40mg Syringe) 40 mg Q24H SQ Last administered on 08/21 12:09; Start 08/21/16 at 08:00; Stop 08/21/16 at 12:45; Status DC Enoxaparin Sodium (Lovenox 30mg Syringe) 30 mg DAILY SQ Last administered on 7/ 7/17at 08:51; Start 08/22/16 at 09:00 Active Scripts Active Keflex (Cephalexin) 250 Mg Capsule 1 Cap PO TID Reported Betimol (Timolol) 5 Ml Drops 5 Ml OP Xalatan (Latanoprost) 2.5 Ml Drops 1 Drop EACHEYE QHS Escitalopram Oxalate 10 Mg Tablet 1 Tab PO DAILY Tramadol Hcl 50 Mg Tablet 1 Tab PO Q8HRS PRN Advair 250-50 Diskus (Fluticasone/Salmeterol) 1 Each Disk.w.dev 1 Puff IH BID Proair Hfa Inhaler (Albuterol Sulfate) 8.5 Gm Hfa.aer.ad 108 Mcg INH Q4HRS PRN Losartan Potassium 50 Mg Tablet 50 Mg PO DAILY Amlodipine Besylate 5 Mg Tablet 7.5 Mg PO HS Diazepam 5 Mg Tablet 2.5 Mg PO BID Hydrochlorothiazide Tablet (Hydrochlorothiazide) 12.5 Mg Tablet 1 Tab PO DAILY Atorvastatin Calcium 20 Mg Tablet 20 Mg PO DAILY Fluticasone Propionate 15.8 Ml [place].susp 50 Mcg NS DAILY Benzonatate 100 Mg Capsule 200 Mg PO TID PRN Plavix (Clopidogrel Bisulfate) 75 Mg Tablet 75 Mg PO HS 30 Days Montelukast Sodium Tablet (Montelukast Sodium) 10 Mg Tablet 10 Mg PO DAILY Clonidine Hcl 0.1 Mg Tablet 0.1 Mg PO HS Vitals/I & O Vital Sign - Last 24 Hours 08/21/16 08/21/16 08/21/16 08/21/16 15:00 15:28 19:00 19:39 Temp 97.8 99.7 97.8 99.7 Pulse 74 80 Resp 18 18 B/P (MAP) 177/72 (107) 96/75 (82) Pulse Ox 99 96 94 O2 Delivery Room Air Room Air Room Air Room Air 08/21/16 08/21/16 08/21/16 08/21/16 20:07 20:07 20:43 20:45 Pulse 80 Resp 18 B/P (MAP) 96/75 Pulse Ox 95 95 O2 Delivery Room Air Room Air Room Air 08/21/16 08/21/16 08/21/16 08/22/16 20:46 22:17 23:00 03:00 Temp 100.0 98.2 100.0 98.2 Pulse 80 82 Resp 18 18 B/P (MAP) 96/75 107/46 (66) Pulse Ox 94 O2 Delivery Room Air Room Air 08/22/16 08/22/16 08/22/16 08/22/16 07:23 07:27 08:00 08:51 Temp 99.0 99.0 Pulse 79 79 Resp 18 B/P (MAP) 134/77 (96) 134/77 Pulse Ox 98 98 O2 Delivery Room Air Room Air Room Air 08/22/16 08/22/16 10:42 11:06 Temp 98.1 98.1 Pulse 84 Resp 18 B/P (MAP) 129/69 (89) Pulse Ox 99 96 O2 Delivery Room Air Room Air Intake and Output 08/21/16 08/21/16 08/22/16 14:59 22:59 06:59 Intake Total 200 ml 800 ml Output Total 0 ml Balance 200 ml 800 ml 0 ml JOSE ESPARZA MD Aug 22, 2016 12:24
[2016-08-22 14:38] VITALS: BP 147/69
[2016-08-22] MEDS: traMADol 50 MG TABLET PO PRN (18:17)
[2016-08-22 19:00] VITALS: BP 176/146
[2016-08-22] MEDS: CLOPIDOGREL BISULFATE 75 MG TABLET PO SCH (19:53)
[2016-08-22] MEDS: ATORVASTATIN CALCIUM 20 MG TABLET PO SCH (19:53)
[2016-08-22] MEDS: amLODIPine BESYLATE 5 MG TABLET PO SCH (19:54)
[2016-08-22] MEDS: cloNIDine HCL 0.1 MG TABLET PO SCH (19:55)
[2016-08-22] MEDS: LATANOPROST 0.005% OPHTH SOLUTION 2.5ML BOTTLE. OU SCH (19:55)
--- NOTE | 2016-08-22 21:38 | PDOC2 ---
CONSULT Date of Consult Date of Consult DATE: 08/22/16 TIME: 21:32 Reason for Consult Reason for Consult: abdominal pain Referring Physician Referring Physician: Ritesh Identification/Chief Complaint Chief Complaint Right lower quadrant abdominal pain Problems: Source Source: Patient History of Present Illness Reason for Visit: 86 yo F with RLQ pain, no N/V, normal bowel fxn, most recent CT concerning for RIH, non obstructing Past Medical History Cardiovascular: HTN, Hyperlipidemia, Other Pulmonary: Asthma CENTRAL NERVOUS SYSTEM: Other GI: GERD Psych: Anxiety, Depression Musculoskeletal: Osteoarthritis Rheumatologic: No pertinent hx Infectious disease: No pertinent hx Renal/: UTI Endocrine: No pertinent hx Past Surgical History Past Surgical History: Appendectomy, Arthroscopy, Total hip replacement, Tonsillectomy, Hysterectomy, Other Family History Family History: No Significant, Other (some GI cancer, pt doesn't know) Social History No ALCOHOL: none Drugs: None Lives: with Family Domestic Violence: Neg Current Problem List Problem List Problems Medical Problems: (1) Right lower quadrant abdominal pain Status: Acute Current Medications Current Medications Current Medications Hydromorphone HCl (Dilaudid) 0.5 mg PRN Q1HR PRN IV SEVERE PAIN Last administered on 08/20/16 15:59; Start 08/20/16 at 10:30 Ondansetron HCl (Zofran) 4 mg 1X ONCE IV Last administered on 08/20/16 10:42; Start 08/20/16 at 10:30; Stop 08/20/16 at 10:33; Status DC Sodium Chloride 500 ml @ 500 mls/hr 1X ONCE IV Last administered on 08/20/16 10:41; Start 08/20/16 at 10:30; Stop 08/20/16 at 11:29; Status DC Iohexol (Omnipaque 300 Mg/ml) 75 ml 1X ONCE IV Last administered on 08/20/16 11:36; Start 08/20/16 at 11:15; Stop 08/20/16 at 11:25; Status DC Info (Do NOT chart on this entry -- for MONITORING) 1 each PRN DAILY PRN MC SEE COMMENTS; Start 08/20/16 at 11:30; Stop 08/21/16 at 12:44; Status DC Hydromorphone HCl (Dilaudid) 0.5 mg 1X ONCE IVP ; Start 08/20/16 at 11:45; Stop 08/20/16 at 11:46; Status DC Ondansetron HCl (Zofran) 4 mg PRN Q8HRS PRN IV NAUSEA/VOMITING; Start 08/20/16 at 13:15; Stop 08/21/16 at 12:47; Status DC Morphine Sulfate 2 mg PRN Q2HR PRN IV PAIN; Start 08/20/16 at 13:15; Stop at 13:14; Status DC Sodium Chloride 1,000 ml @ 125 mls/hr Q8H IV Last administered on 08/20/16 16: 00; Start 08/20/16 at 13:09; Stop 08/20/16 at 19:25; Status DC Polyethylene Glycol (miraLAX PACKET) 17 gm DAILY PO Last administered on 08:51; Start 08/20/16 at 15:15 Pantoprazole Sodium (Protonix) 40 mg DAILYAC PO Last administered on 08/22/16 08:05; Start 08/20/16 at 16:30 Potassium Chloride/Sodium Chloride 1,000 ml @ 75 mls/hr 1X ONCE IV Last administered on 08/20/16 20:57; Start 08/20/16 at 20:00; Stop 08/21/16 at 09:19; Status DC Sodium Chloride 1,000 ml @ 75 mls/hr [id number] IV Last administered on 08/21/16 12:08; Start 08/20/16 at 19:30; Stop 08/21/16 at 13:23; Status DC Acetaminophen (Tylenol) 325 mg PRN Q6HRS PRN PO MILD PAIN / TEMP Last administered on 08/21/16 20:43; Start 08/20/16 at 19:30 Hydralazine HCl (Apresoline) 10 mg PRN Q4HRS PRN IVP ELEVATED BP, SEE COMMENTS ; Start 08/20/16 at 19:30 Ondansetron HCl (Zofran) 4 mg PRN Q8HRS PRN IV NAUSEA/VOMITING; Start 08/20/16 at 19:30 Albuterol Sulfate (Ventolin Neb Soln) 2.5 mg PRN Q4HRS PRN NEB SHORTNESS OF BREATH; Start 08/20/16 at 19:30 Amlodipine Besylate (Norvasc) 7.5 mg HS PO Last administered on 08/22/16 19:54 ; Start 08/20/16 at 21:00 Atorvastatin Calcium (Lipitor) 20 mg QHS PO Last administered on 08/22/16 19:53 ; Start 08/20/16 at 21:00 Benzonatate (Tessalon Perle) 200 mg TID PRN PO COUGH Last administered on 20:45; Start 08/20/16 at 19:45 Clonidine HCl (Catapres) 0.1 mg HS PO Last administered on 08/22/16 19:55; Start 08/20/16 at 21:00 Clopidogrel Bisulfate (Plavix) 75 mg HS PO Last administered on 08/22/16 19:53 ; Start 08/20/16 at 21:00 Diazepam (Valium) 2.5 mg BID PO Last administered on 08/22/16 19:53; Start 08/20 at 21:00 Latanoprost (Xalatan) 1 drop QHS OU Last administered on 08/22/16 19:55; Start 08/20/16 at 21:00 Losartan Potassium (Cozaar) 50 mg DAILY PO Last administered on 08/22/16 08:51 ; Start 08/21/16 at 09:00 Montelukast Sodium (Singulair) 10 mg DAILY PO Last administered on 08/22/16 08: 51; Start 08/21/16 at 09:00 Tramadol HCl (Ultram) 50 mg Q8HRS PRN PO PAIN Last administered on 08/22/16 18: 17; Start 08/20/16 at 19:45 Non-Formulary Medication 108 mcg Q4HRS PRN INH SHORTNESS OF BREATH; Start at 19:45; Status UNV Escitalopram Oxalate (Lexapro) 10 mg DAILY PO Last administered on 08/22/16 08: 51; Start 08/21/16 at 09:00 Fluticasone Propionate (Flonase) 2 spray DAILY NS Last administered on 08:51; Start 08/21/16 at 09:00 Non-Formulary Medication 1 puff BID IH ; Start 08/20/16 at 21:00; Status UNV Hydrochlorothiazide (Microzide) 12.5 mg DAILY PO Last administered on 08/22/16 08:51; Start 08/21/16 at 09:00 Albuterol/ Ipratropium (Duoneb) 3 ml RTQID NEB Last administered on 08/22/16 19 :50; Start 08/20/16 at 20:00 Budesonide (Pulmicort) 0.5 mg RTBID NEB Last administered on 08/22/16 19:50; Start 08/20/16 at 20:00 Iohexol (Omnipaque 350 Mg/ml) 90 ml 1X ONCE IV Last administered on 08/21/16 07:00; Start 08/21/16 at 07:00; Stop 08/21/16 at 07:01; Status DC Info (Do NOT chart on this entry -- for MONITORING) 1 each PRN DAILY PRN MC SEE COMMENTS; Start 08/21/16 at 06:30; Stop 08/23/16 at 06:29 Potassium Chloride (Klor-Con) 40 meq 1X ONCE PO Last administered on 08/21/16 12:06; Start 08/21/16 at 08:00; Stop 08/21/16 at 08:02; Status DC Enoxaparin Sodium (Lovenox 40mg Syringe) 40 mg Q24H SQ Last administered on 08/21 12:09; Start 08/21/16 at 08:00; Stop 08/21/16 at 12:45; Status DC Enoxaparin Sodium (Lovenox 30mg Syringe) 30 mg DAILY SQ Last administered on 08:51; Start 08/22/16 at 09:00 Active Scripts Active Keflex (Cephalexin) 250 Mg Capsule 1 Cap PO TID Reported Betimol (Timolol) 5 Ml Drops 5 Ml OP Xalatan (Latanoprost) 2.5 Ml Drops 1 Drop EACHEYE QHS Escitalopram Oxalate 10 Mg Tablet 1 Tab PO DAILY Tramadol Hcl 50 Mg Tablet 1 Tab PO Q8HRS PRN Advair 250-50 Diskus (Fluticasone/Salmeterol) 1 Each Disk.w.dev 1 Puff IH BID Proair Hfa Inhaler (Albuterol Sulfate) 8.5 Gm Hfa.aer.ad 108 Mcg INH Q4HRS PRN Losartan Potassium 50 Mg Tablet 50 Mg PO DAILY Amlodipine Besylate 5 Mg Tablet 7.5 Mg PO HS Diazepam 5 Mg Tablet 2.5 Mg PO BID Hydrochlorothiazide Tablet (Hydrochlorothiazide) 12.5 Mg Tablet 1 Tab PO DAILY Atorvastatin Calcium 20 Mg Tablet 20 Mg PO DAILY Fluticasone Propionate 15.8 Ml [place].susp 50 Mcg NS DAILY Benzonatate 100 Mg Capsule 200 Mg PO TID PRN Plavix (Clopidogrel Bisulfate) 75 Mg Tablet 75 Mg PO HS 30 Days Montelukast Sodium Tablet (Montelukast Sodium) 10 Mg Tablet 10 Mg PO DAILY Clonidine Hcl 0.1 Mg Tablet 0.1 Mg PO HS Allergies Allergies: Coded Allergies: Sulfa (Sulfonamide Antibiotics) (Verified Allergy, Intermediate, 12/26/15) codeine (Verified Adverse Reaction, Intermediate, NAUSEA AND VOMITING, 08/20) TOLERATES HYDROCODONE ROS Gastrointestinal: Yes Abdominal Pain Physical Exam General: Alert, Oriented X3, Cooperative, No acute distress HEENT: Atraumatic, EOMI, Mucous membr. moist/pink Lungs: Normal air movement Abdomen: Soft, Other (TTP RLQ, c/w hernia, incisional versus ing) Extremities: No clubbing, No cyanosis Skin: No rashes Neuro: Normal speech, Sensation intact MUSCULOSKELETAL: No joint tenderness Vitals VITALS Vital Signs Date Time Temp Pulse Resp B/P (MAP) Pulse Ox O2 Delivery O2 Flow Rate FiO2 08/22/16 20:00 Room Air 08/22/16 19:55 84 176/146 08/22/16 19:50 96 08/22/16 19:00 97.7 19 97.7 Labs Labs Laboratory Tests Test 08/21/16 01:00 White Blood Count 8.3 x10^3/uL (4.0-11.0) Red Blood Count 3.71 x10^6/uL (3.50-5.40) Hemoglobin 11.4 g/dL (12.0-15.5) Hematocrit 34.7 % (36.0-47.0) Mean Corpuscular Volume 94 fL (79-100) Mean Corpuscular Hemoglobin 31 pg (25-35) Mean Corpuscular Hemoglobin Concent 33 g/dL (31-37) Red Cell Distribution Width 14.0 % (11.5-14.5) Platelet Count 243 x10^3/uL (140-400) Neutrophils (%) (Auto) 47 % (31-73) Lymphocytes (%) (Auto) 39 % (24-48) Monocytes (%) (Auto) 7 % (0-9) Eosinophils (%) (Auto) 7 % (0-3) Basophils (%) (Auto) 1 % (0-3) Neutrophils # (Auto) 3.9 x10^3uL (1.8-7.7) Lymphocytes # (Auto) 3.2 x10^3/uL (1.0-4.8) Monocytes # (Auto) 0.6 x10^3/uL (0.0-1.1) Eosinophils # (Auto) 0.6 x10^3/uL (0.0-0.7) Basophils # (Auto) 0.0 x10^3/uL (0.0-0.2) Sodium Level 145 mmol/L (136-145) Potassium Level 3.4 mmol/L (3.5-5.1) Chloride Level 109 mmol/L (98-107) Carbon Dioxide Level 31 mmol/L (21-32) Anion Gap 5 (6-14) Blood Urea Nitrogen 9 mg/dL (7-20) Creatinine 0.4 mg/dL (0.6-1.0) Estimated GFR (Cockcroft-Gault) 150.6 Glucose Level 91 mg/dL (70-99) Calcium Level 7.7 mg/dL (8.5-10.1) Troponin I Quantitative < 0.017 ng/mL (0.000-0.055) Images Images CTA with RLQ hernia, non obstructed, not on previous CT Assessment/Plan Assessment/Plan RIH vs VIH would offer surgical repair, given pt's pain pt will take this in to consideration and d/w family Thanks for consult! HORACIO MALCOLM MD Aug 22, 2016 21:38
[2016-08-22 23:00] VITALS: BP 151/71
[2016-08-23 03:30] VITALS: BP 141/66
[2016-08-23] MEDS: traMADol 50 MG TABLET PO PRN ×2 (04:55→19:49)
[2016-08-23] MEDS: PANTOPRAZOLE 40 MG TABLET.DR. PO SCH (06:05)
[2016-08-23] MEDS: IPRATRPIUM/ALBUTEROL 0.5/2.5MG 3 ML NEBU. NEB SCH ×4 (06:51→19:19)
[2016-08-23] MEDS: BUDESONIDE 0.5 MG/2 ML NEBU. NEB SCH ×2 (06:51→19:19)
[2016-08-23 07:00] VITALS: BP 135/70
[2016-08-23] MEDS: ESCITALOPRAM 10 MG TABLET. PO SCH (09:13)
[2016-08-23] MEDS: hydroCHLOROthiazide 12.5 MG CAPSULE PO SCH (09:13)
[2016-08-23] MEDS: diazePAM 5 MG TABLET PO SCH ×2 (09:13→19:48)
[2016-08-23] MEDS: ENOXAPARIN 30 MG/0.3 ML SYRINGE. SQ SCH (09:14)
[2016-08-23] MEDS: LOSARTAN POTASSIUM 50 MG TABLET. PO SCH (09:14)
[2016-08-23] MEDS: MONTELUKAST SODIUM 10 MG TABLET. PO SCH (09:14)
[2016-08-23] MEDS: FLUTICASONE 50MCG/NASAL SPRAY 16GM BOTTLE. NS SCH (09:15)
[2016-08-23] MEDS: POLYETHYLENE GLYCOL 3350 17 GM PACKET. PO SCH (09:15)
[2016-08-23 11:00] VITALS: BP 141/61
--- NOTE | 2016-08-23 11:36 | PDOC ---
G I PROGRESS NOTE Reason for Follow-up ABd pain rlq Subjective Pain unchanged Physical Exam Lungs clear CV S1 S2 ABD +BS, soft, mild RLQ tenderness to palpation Review of Relevant I have reviewed the following items delaney (where applicable) has been applied. Labs Microbiology 08/20/16 Urine Culture - Final, Complete 08/20/16 Urine Culture Result 1 (KARLOS) - Final, Complete Medications Current Medications Hydromorphone HCl (Dilaudid) 0.5 mg PRN Q1HR PRN IV SEVERE PAIN Last administered on 08/20/16 15:59; Start 08/20/16 at 10:30 Ondansetron HCl (Zofran) 4 mg 1X ONCE IV Last administered on 08/20/16 10:42; Start 08/20/16 at 10:30; Stop 08/20/16 at 10:33; Status DC Sodium Chloride 500 ml @ 500 mls/hr 1X ONCE IV Last administered on 08/20/16 10:41; Start 08/20/16 at 10:30; Stop 08/20/16 at 11:29; Status DC Iohexol (Omnipaque 300 Mg/ml) 75 ml 1X ONCE IV Last administered on 08/20/16 11:36; Start 08/20/16 at 11:15; Stop 08/20/16 at 11:25; Status DC Info (Do NOT chart on this entry -- for MONITORING) 1 each PRN DAILY PRN MC SEE COMMENTS; Start 08/20/16 at 11:30; Stop 08/21/16 at 12:44; Status DC Hydromorphone HCl (Dilaudid) 0.5 mg 1X ONCE IVP ; Start 08/20/16 at 11:45; Stop 08/20/16 at 11:46; Status DC Ondansetron HCl (Zofran) 4 mg PRN Q8HRS PRN IV NAUSEA/VOMITING; Start 08/20/16 at 13:15; Stop 08/21/16 at 12:47; Status DC Morphine Sulfate 2 mg PRN Q2HR PRN IV PAIN; Start 08/20/16 at 13:15; Stop at 13:14; Status DC Sodium Chloride 1,000 ml @ 125 mls/hr Q8H IV Last administered on 08/20/16 16: 00; Start 08/20/16 at 13:09; Stop 08/20/16 at 19:25; Status DC Polyethylene Glycol (miraLAX PACKET) 17 gm DAILY PO Last administered on 09:15; Start 08/20/16 at 15:15 Pantoprazole Sodium (Protonix) 40 mg DAILYAC PO Last administered on 08/23/16 06:05; Start 08/20/16 at 16:30 Potassium Chloride/Sodium Chloride 1,000 ml @ 75 mls/hr 1X ONCE IV Last administered on 08/20/16 20:57; Start 08/20/16 at 20:00; Stop 08/21/16 at 09:19; Status DC Sodium Chloride 1,000 ml @ 75 mls/hr [id number] IV Last administered on 08/21/16 12:08; Start 08/20/16 at 19:30; Stop 08/21/16 at 13:23; Status DC Acetaminophen (Tylenol) 325 mg PRN Q6HRS PRN PO MILD PAIN / TEMP Last administered on 08/21/16 20:43; Start 08/20/16 at 19:30 Hydralazine HCl (Apresoline) 10 mg PRN Q4HRS PRN IVP ELEVATED BP, SEE COMMENTS ; Start 08/20/16 at 19:30 Ondansetron HCl (Zofran) 4 mg PRN Q8HRS PRN IV NAUSEA/VOMITING; Start 08/20/16 at 19:30 Albuterol Sulfate (Ventolin Neb Soln) 2.5 mg PRN Q4HRS PRN NEB SHORTNESS OF BREATH; Start 08/20/16 at 19:30 Amlodipine Besylate (Norvasc) 7.5 mg HS PO Last administered on 08/22/16 19:54 ; Start 08/20/16 at 21:00 Atorvastatin Calcium (Lipitor) 20 mg QHS PO Last administered on 08/22/16 19:53 ; Start 08/20/16 at 21:00 Benzonatate (Tessalon Perle) 200 mg TID PRN PO COUGH Last administered on 20:45; Start 08/20/16 at 19:45 Clonidine HCl (Catapres) 0.1 mg HS PO Last administered on 08/22/16 19:55; Start 08/20/16 at 21:00 Clopidogrel Bisulfate (Plavix) 75 mg HS PO Last administered on 08/22/16 19:53 ; Start 08/20/16 at 21:00 Diazepam (Valium) 2.5 mg BID PO Last administered on 08/23/16 09:13; Start 08/20 at 21:00 Latanoprost (Xalatan) 1 drop QHS OU Last administered on 08/22/16 19:55; Start 08/20/16 at 21:00 Losartan Potassium (Cozaar) 50 mg DAILY PO Last administered on 08/23/16 09:14 ; Start 08/21/16 at 09:00 Montelukast Sodium (Singulair) 10 mg DAILY PO Last administered on 08/23/16 09: 14; Start 08/21/16 at 09:00 Tramadol HCl (Ultram) 50 mg Q8HRS PRN PO MODERATE - SEVERE PAIN Last administered on 08/23/16 04:55; Start 08/20/16 at 19:45 Non-Formulary Medication 108 mcg Q4HRS PRN INH SHORTNESS OF BREATH; Start at 19:45; Status UNV Escitalopram Oxalate (Lexapro) 10 mg DAILY PO Last administered on 08/23/16 09: 13; Start 08/21/16 at 09:00 Fluticasone Propionate (Flonase) 2 spray DAILY NS Last administered on 09:15; Start 08/21/16 at 09:00 Non-Formulary Medication 1 puff BID IH ; Start 08/20/16 at 21:00; Status UNV Hydrochlorothiazide (Microzide) 12.5 mg DAILY PO Last administered on 08/23/16 09:13; Start 08/21/16 at 09:00 Albuterol/ Ipratropium (Duoneb) 3 ml RTQID NEB Last administered on 08/23/16 10 :43; Start 08/20/16 at 20:00 Budesonide (Pulmicort) 0.5 mg RTBID NEB Last administered on 08/23/16 06:51; Start 08/20/16 at 20:00 Iohexol (Omnipaque 350 Mg/ml) 90 ml 1X ONCE IV Last administered on 08/21/16 07:00; Start 08/21/16 at 07:00; Stop 08/21/16 at 07:01; Status DC Info (Do NOT chart on this entry -- for MONITORING) 1 each PRN DAILY PRN MC SEE COMMENTS; Start 08/21/16 at 06:30; Stop 08/23/16 at 06:29; Status DC Potassium Chloride (Klor-Con) 40 meq 1X ONCE PO Last administered on 08/21/16 12:06; Start 08/21/16 at 08:00; Stop 08/21/16 at 08:02; Status DC Enoxaparin Sodium (Lovenox 40mg Syringe) 40 mg Q24H SQ Last administered on 08/21 12:09; Start 08/21/16 at 08:00; Stop 08/21/16 at 12:45; Status DC Enoxaparin Sodium (Lovenox 30mg Syringe) 30 mg DAILY SQ Last administered on 09:14; Start 08/22/16 at 09:00 Active Scripts Active Keflex (Cephalexin) 250 Mg Capsule 1 Cap PO TID Reported Betimol (Timolol) 5 Ml Drops 5 Ml OP Xalatan (Latanoprost) 2.5 Ml Drops 1 Drop EACHEYE QHS Escitalopram Oxalate 10 Mg Tablet 1 Tab PO DAILY Tramadol Hcl 50 Mg Tablet 1 Tab PO Q8HRS PRN Advair 250-50 Diskus (Fluticasone/Salmeterol) 1 Each Disk.w.dev 1 Puff IH BID Proair Hfa Inhaler (Albuterol Sulfate) 8.5 Gm Hfa.aer.ad 108 Mcg INH Q4HRS PRN Losartan Potassium 50 Mg Tablet 50 Mg PO DAILY Amlodipine Besylate 5 Mg Tablet 7.5 Mg PO HS Diazepam 5 Mg Tablet 2.5 Mg PO BID Hydrochlorothiazide Tablet (Hydrochlorothiazide) 12.5 Mg Tablet 1 Tab PO DAILY Atorvastatin Calcium 20 Mg Tablet 20 Mg PO DAILY Fluticasone Propionate 15.8 Ml [place].susp 50 Mcg NS DAILY Benzonatate 100 Mg Capsule 200 Mg PO TID PRN Plavix (Clopidogrel Bisulfate) 75 Mg Tablet 75 Mg PO HS 30 Days Montelukast Sodium Tablet (Montelukast Sodium) 10 Mg Tablet 10 Mg PO DAILY Clonidine Hcl 0.1 Mg Tablet 0.1 Mg PO HS Vitals/I & O Vital Sign - Last 24 Hours 08/22/16 08/22/16 08/22/16 08/22/16 14:38 15:19 19:00 19:50 Temp 97.7 97.7 97.7 97.7 Pulse 87 84 Resp 18 19 B/P (MAP) 147/69 (95) 176/146 (156) Pulse Ox 96 99 96 96 O2 Delivery Room Air Room Air Room Air Room Air 08/22/16 08/22/16 08/22/16 08/22/16 19:54 19:55 20:00 23:00 Temp 97.8 97.8 Pulse 84 84 83 Resp 17 B/P (MAP) 176/146 176/146 151/71 (97) Pulse Ox 97 O2 Delivery Room Air Room Air 08/23/16 08/23/16 08/23/16 08/23/16 03:30 04:55 05:55 06:51 Temp 97.0 97.0 Pulse 80 Resp 16 18 18 B/P (MAP) 141/66 (91) Pulse Ox 97 97 97 96 O2 Delivery Room Air Room Air Room Air Room Air 08/23/16 08/23/16 08/23/16 08/23/16 07:00 08:00 09:14 10:44 Temp 97.7 97.7 Pulse 81 81 Resp 20 B/P (MAP) 135/70 (91) 135/70 Pulse Ox 98 O2 Delivery Room Air Room Air Room Air Intake and Output 08/22/16 08/22/16 08/23/16 15:00 23:00 07:00 Intake Total 1260 ml 540 ml 1000 ml Output Total 1000 ml Balance 1260 ml -460 ml 1000 ml Problem List Problems Medical Problems: (1) Right lower quadrant abdominal pain Status: Acute Assessment RLQ abd pain- with [facility], await patient decision regarding possible repair, cpm EVELYN KRUEGER MD Aug 23, 2016 11:36
--- NOTE | 2016-08-23 11:59 | PDOC ---
PROGRESS NOTES Chief Complaint Chief Complaint 1. RLQ abd pain 2. RIH 3. HTN 4. GERD 5. HLP 6. Asthma 7. PAD 8. CAD 9. Chronic lymphedema 10. Anxiety 11. Depression 12. OA History of Present Illness History of Present Illness pt is lying in bed comfortably this morning, she has been able to tolerate meals , she denies any complaints, surgery has offered to repair her RIH but she wants to discuss with family first, pt has denied SNU so will be discharge to home with home health Vitals Vitals Vital Signs Date Time Temp Pulse Resp B/P (MAP) Pulse Ox O2 Delivery O2 Flow Rate FiO2 08/23/16 10:44 Room Air 08/23/16 09:14 81 135/70 08/23/16 07:00 97.7 20 98 97.7 Physical Exam General: Alert, Oriented X3, Cooperative, No acute distress Heart: Regular rate, Normal S1, Normal S2 Lungs: Clear Abdomen: Soft, Other (TTP RLQ) Extremities: No clubbing, No cyanosis Skin: No rashes, No breakdown, No significant lesion Review of Systems Review of Systems denies nausea, vomiting, or WEAVER Assessment and Plan Assessmemt and Plan Assessment 1. RLQ abd pain 2. RIH 3. HTN 4. GERD 5. HLP 6. Asthma 7. PAD 8. CAD 9. Chronic lymphedema 10. Anxiety 11. Depression 12. OA Plan 1. RIH: surgery has offered repair but decision pending pt discussion with her family 2. Lovenox for DVT prophylaxis 3. Urine culture showed mixed urogenital erica 4. Appreciate subspecialty input 5. Continue home meds 6. Discussed plan of care with nursing 7. PT/OT 8. Recheck CBC and BMP tomorrow 9. Reviewed imaging: abd/pelv CT showed colonic diverticulosis, L renal cysts, and no acute processes; abd/pelv CTA showed cholesterol plaques in AA and L common femoral and RIH 10. Zofran prn for nausea 11. Pt has refused SNU, will discharge home with home health instead Problems: Comment Review of Relevant I have reviewed the following items delaney (where applicable) has been applied. Labs Microbiology 08/20/16 Urine Culture - Final, Complete 08/20/16 Urine Culture Result 1 (KARLOS) - Final, Complete Medications Current Medications Hydromorphone HCl (Dilaudid) 0.5 mg PRN Q1HR PRN IV SEVERE PAIN Last administered on 08/20/16 15:59; Start 08/20/16 at 10:30 Ondansetron HCl (Zofran) 4 mg 1X ONCE IV Last administered on 08/20/16 10:42; Start 08/20/16 at 10:30; Stop 08/20/16 at 10:33; Status DC Sodium Chloride 500 ml @ 500 mls/hr 1X ONCE IV Last administered on 08/20/16 10:41; Start 08/20/16 at 10:30; Stop 08/20/16 at 11:29; Status DC Iohexol (Omnipaque 300 Mg/ml) 75 ml 1X ONCE IV Last administered on 08/20/16 11:36; Start 08/20/16 at 11:15; Stop 08/20/16 at 11:25; Status DC Info (Do NOT chart on this entry -- for MONITORING) 1 each PRN DAILY PRN MC SEE COMMENTS; Start 08/20/16 at 11:30; Stop 08/21/16 at 12:44; Status DC Hydromorphone HCl (Dilaudid) 0.5 mg 1X ONCE IVP ; Start 08/20/16 at 11:45; Stop 08/20/16 at 11:46; Status DC Ondansetron HCl (Zofran) 4 mg PRN Q8HRS PRN IV NAUSEA/VOMITING; Start 08/20/16 at 13:15; Stop 08/21/16 at 12:47; Status DC Morphine Sulfate 2 mg PRN Q2HR PRN IV PAIN; Start 08/20/16 at 13:15; Stop at 13:14; Status DC Sodium Chloride 1,000 ml @ 125 mls/hr Q8H IV Last administered on 08/20/16 16: 00; Start 08/20/16 at 13:09; Stop 08/20/16 at 19:25; Status DC Polyethylene Glycol (miraLAX PACKET) 17 gm DAILY PO Last administered on 09:15; Start 08/20/16 at 15:15 Pantoprazole Sodium (Protonix) 40 mg DAILYAC PO Last administered on 08/23/16 06:05; Start 08/20/16 at 16:30 Potassium Chloride/Sodium Chloride 1,000 ml @ 75 mls/hr 1X ONCE IV Last administered on 08/20/16 20:57; Start 08/20/16 at 20:00; Stop 08/21/16 at 09:19; Status DC Sodium Chloride 1,000 ml @ 75 mls/hr [id number] IV Last administered on 08/21/16 12:08; Start 08/20/16 at 19:30; Stop 08/21/16 at 13:23; Status DC Acetaminophen (Tylenol) 325 mg PRN Q6HRS PRN PO MILD PAIN / TEMP Last administered on 08/21/16 20:43; Start 08/20/16 at 19:30 Hydralazine HCl (Apresoline) 10 mg PRN Q4HRS PRN IVP ELEVATED BP, SEE COMMENTS ; Start 08/20/16 at 19:30 Ondansetron HCl (Zofran) 4 mg PRN Q8HRS PRN IV NAUSEA/VOMITING; Start 08/20/16 at 19:30 Albuterol Sulfate (Ventolin Neb Soln) 2.5 mg PRN Q4HRS PRN NEB SHORTNESS OF BREATH; Start 08/20/16 at 19:30 Amlodipine Besylate (Norvasc) 7.5 mg HS PO Last administered on 08/22/16 19:54 ; Start 08/20/16 at 21:00 Atorvastatin Calcium (Lipitor) 20 mg QHS PO Last administered on 08/22/16 19:53 ; Start 08/20/16 at 21:00 Benzonatate (Tessalon Perle) 200 mg TID PRN PO COUGH Last administered on 20:45; Start 08/20/16 at 19:45 Clonidine HCl (Catapres) 0.1 mg HS PO Last administered on 08/22/16 19:55; Start 08/20/16 at 21:00 Clopidogrel Bisulfate (Plavix) 75 mg HS PO Last administered on 08/22/16 19:53 ; Start 08/20/16 at 21:00 Diazepam (Valium) 2.5 mg BID PO Last administered on 08/23/16 09:13; Start 08/20 at 21:00 Latanoprost (Xalatan) 1 drop QHS OU Last administered on 08/22/16 19:55; Start 08/20/16 at 21:00 Losartan Potassium (Cozaar) 50 mg DAILY PO Last administered on 08/23/16 09:14 ; Start 08/21/16 at 09:00 Montelukast Sodium (Singulair) 10 mg DAILY PO Last administered on 08/23/16 09: 14; Start 08/21/16 at 09:00 Tramadol HCl (Ultram) 50 mg Q8HRS PRN PO MODERATE - SEVERE PAIN Last administered on 08/23/16 04:55; Start 08/20/16 at 19:45 Non-Formulary Medication 108 mcg Q4HRS PRN INH SHORTNESS OF BREATH; Start at 19:45; Status UNV Escitalopram Oxalate (Lexapro) 10 mg DAILY PO Last administered on 08/23/16 09: 13; Start 08/21/16 at 09:00 Fluticasone Propionate (Flonase) 2 spray DAILY NS Last administered on 09:15; Start 08/21/16 at 09:00 Non-Formulary Medication 1 puff BID IH ; Start 08/20/16 at 21:00; Status UNV Hydrochlorothiazide (Microzide) 12.5 mg DAILY PO Last administered on 08/23/16 09:13; Start 08/21/16 at 09:00 Albuterol/ Ipratropium (Duoneb) 3 ml RTQID NEB Last administered on 08/23/16 10 :43; Start 08/20/16 at 20:00 Budesonide (Pulmicort) 0.5 mg RTBID NEB Last administered on 08/23/16 06:51; Start 08/20/16 at 20:00 Iohexol (Omnipaque 350 Mg/ml) 90 ml 1X ONCE IV Last administered on 08/21/16 07:00; Start 08/21/16 at 07:00; Stop 08/21/16 at 07:01; Status DC Info (Do NOT chart on this entry -- for MONITORING) 1 each PRN DAILY PRN MC SEE COMMENTS; Start 08/21/16 at 06:30; Stop 08/23/16 at 06:29; Status DC Potassium Chloride (Klor-Con) 40 meq 1X ONCE PO Last administered on 08/21/16 12:06; Start 08/21/16 at 08:00; Stop 08/21/16 at 08:02; Status DC Enoxaparin Sodium (Lovenox 40mg Syringe) 40 mg Q24H SQ Last administered on 08/21 12:09; Start 08/21/16 at 08:00; Stop 08/21/16 at 12:45; Status DC Enoxaparin Sodium (Lovenox 30mg Syringe) 30 mg DAILY SQ Last administered on 09:14; Start 08/22/16 at 09:00 Active Scripts Active Keflex (Cephalexin) 250 Mg Capsule 1 Cap PO TID Reported Betimol (Timolol) 5 Ml Drops 5 Ml OP Xalatan (Latanoprost) 2.5 Ml Drops 1 Drop EACHEYE QHS Escitalopram Oxalate 10 Mg Tablet 1 Tab PO DAILY Tramadol Hcl 50 Mg Tablet 1 Tab PO Q8HRS PRN Advair 250-50 Diskus (Fluticasone/Salmeterol) 1 Each Disk.w.dev 1 Puff IH BID Proair Hfa Inhaler (Albuterol Sulfate) 8.5 Gm Hfa.aer.ad 108 Mcg INH Q4HRS PRN Losartan Potassium 50 Mg Tablet 50 Mg PO DAILY Amlodipine Besylate 5 Mg Tablet 7.5 Mg PO HS Diazepam 5 Mg Tablet 2.5 Mg PO BID Hydrochlorothiazide Tablet (Hydrochlorothiazide) 12.5 Mg Tablet 1 Tab PO DAILY Atorvastatin Calcium 20 Mg Tablet 20 Mg PO DAILY Fluticasone Propionate 15.8 Ml [place].susp 50 Mcg NS DAILY Benzonatate 100 Mg Capsule 200 Mg PO TID PRN Plavix (Clopidogrel Bisulfate) 75 Mg Tablet 75 Mg PO HS 30 Days Montelukast Sodium Tablet (Montelukast Sodium) 10 Mg Tablet 10 Mg PO DAILY Clonidine Hcl 0.1 Mg Tablet 0.1 Mg PO HS Vitals/I & O Vital Sign - Last 24 Hours 08/22/16 08/22/16 08/22/16 08/22/16 14:38 15:19 19:00 19:50 Temp 97.7 97.7 97.7 97.7 Pulse 87 84 Resp 18 19 B/P (MAP) 147/69 (95) 176/146 (156) Pulse Ox 96 99 96 96 O2 Delivery Room Air Room Air Room Air Room Air 08/22/16 08/22/16 08/22/16 08/22/16 19:54 19:55 20:00 23:00 Temp 97.8 97.8 Pulse 84 84 83 Resp 17 B/P (MAP) 176/146 176/146 151/71 (97) Pulse Ox 97 O2 Delivery Room Air Room Air 08/23/16 08/23/16 08/23/16 08/23/16 03:30 04:55 05:55 06:51 Temp 97.0 97.0 Pulse 80 Resp 16 18 18 B/P (MAP) 141/66 (91) Pulse Ox 97 97 97 96 O2 Delivery Room Air Room Air Room Air Room Air 08/23/16 08/23/16 08/23/16 08/23/16 07:00 08:00 09:14 10:44 Temp 97.7 97.7 Pulse 81 81 Resp 20 B/P (MAP) 135/70 (91) 135/70 Pulse Ox 98 O2 Delivery Room Air Room Air Room Air Intake and Output 08/22/16 08/22/16 08/23/16 15:00 23:00 07:00 Intake Total 1260 ml 540 ml 1000 ml Output Total 1000 ml Balance 1260 ml -460 ml 1000 ml EVELYN NEGRETE III DO Aug 23, 2016 11:59
--- NOTE | 2016-08-23 12:07 | PDOC ---
SURGICAL PROGRESS NOTE Subjective Pt with c/o RLQ pain, but stable, stacy PO Vital Signs Vital Signs Date Time Temp Pulse Resp B/P (MAP) Pulse Ox O2 Delivery O2 Flow Rate FiO2 08/23/16 10:44 Room Air 08/23/16 09:14 81 135/70 08/23/16 07:00 97.7 20 98 97.7 I&O Intake and Output 08/23/16 06:59 Intake Total 2800 ml Output Total 1000 ml Balance 1800 ml Intake Oral 2800 ml Output Urine Total 1000 ml # Voids 5 # Bowel Movements 1 General: Alert, Oriented X3, Cooperative, No acute distress Abdomen: Soft, Other (mild TTP RLQ) Problem List Problems Medical Problems: (1) Right lower quadrant abdominal pain Status: Acute Assessment/Plan RIh vs RLQ VIH given stability, OK for elective repair pt notes family out of town and wishes to d/w them prior to surgery, which is reasonable Problems: HORACIO MALCOLM MD Aug 23, 2016 12:07
[2016-08-23 15:00] VITALS: BP 136/62
[2016-08-23 19:00] VITALS: BP 141/70
[2016-08-23] MEDS: ATORVASTATIN CALCIUM 20 MG TABLET PO SCH (19:49)
[2016-08-23] MEDS: amLODIPine BESYLATE 5 MG TABLET PO SCH (19:49)
[2016-08-23] MEDS: cloNIDine HCL 0.1 MG TABLET PO SCH (19:50)
[2016-08-23] MEDS: LATANOPROST 0.005% OPHTH SOLUTION 2.5ML BOTTLE. OU SCH (19:50)
[2016-08-23] MEDS: CLOPIDOGREL BISULFATE 75 MG TABLET PO SCH (19:51)
[2016-08-23 23:00] VITALS: BP 146/64
[2016-08-24] MEDS: traMADol 50 MG TABLET PO PRN ×3 (01:43→19:43)
[2016-08-24] MEDS: BENZONATATE 100 MG CAPSULE. PO PRN (01:44)
[2016-08-24 03:00] VITALS: BP 136/67
[2016-08-24] MEDS: PANTOPRAZOLE 40 MG TABLET.DR. PO SCH (06:11)
[2016-08-24 07:00] VITALS: BP 121/65
[2016-08-24] MEDS: IPRATRPIUM/ALBUTEROL 0.5/2.5MG 3 ML NEBU. NEB SCH ×4 (07:27→20:05)
[2016-08-24] MEDS: BUDESONIDE 0.5 MG/2 ML NEBU. NEB SCH ×2 (07:27→20:05)
[2016-08-24] MEDS: FLUTICASONE 50MCG/NASAL SPRAY 16GM BOTTLE. NS SCH (08:30)
[2016-08-24] MEDS: ENOXAPARIN 30 MG/0.3 ML SYRINGE. SQ SCH (08:31)
[2016-08-24] MEDS: MONTELUKAST SODIUM 10 MG TABLET. PO SCH (08:31)
[2016-08-24] MEDS: POLYETHYLENE GLYCOL 3350 17 GM PACKET. PO SCH (08:31)
[2016-08-24] MEDS: ESCITALOPRAM 10 MG TABLET. PO SCH (08:31)
[2016-08-24] MEDS: hydroCHLOROthiazide 12.5 MG CAPSULE PO SCH (08:31)
[2016-08-24] MEDS: LOSARTAN POTASSIUM 50 MG TABLET. PO SCH (08:31)
[2016-08-24] MEDS: diazePAM 5 MG TABLET PO SCH ×2 (08:32→19:45)
[2016-08-24 11:00] VITALS: BP 120/65
--- NOTE | 2016-08-24 12:36 | PDOC ---
PROGRESS NOTES Chief Complaint Chief Complaint 1. RLQ abd pain 2. RIH 3. HTN 4. GERD 5. HLP 6. Asthma 7. PAD 8. CAD 9. Chronic lymphedema 10. Anxiety 11. Depression 12. OA History of Present Illness History of Present Illness pt sitting up in chair, she states she feels well and denies any complaints, her family is coming back Thursday from out of town and then they will discuss whether to proceed with RIH repair Vitals Vitals Vital Signs Date Time Temp Pulse Resp B/P (MAP) Pulse Ox O2 Delivery O2 Flow Rate FiO2 08/24/16 12:09 20 93 Room Air 08/24/16 11:00 98.5 79 120/65 (83) 98.5 Physical Exam General: Alert, Oriented X3, Cooperative, No acute distress Heart: Regular rate, Normal S1, Normal S2 Lungs: Clear Abdomen: Soft, Other (mild TTP RLQ, unable to palpate hernia) Extremities: No clubbing, No cyanosis Skin: No rashes, No breakdown, No significant lesion Review of Systems Review of Systems denies N/V/D and WEAVER Assessment and Plan Assessmemt and Plan Assessment 1. RLQ abd pain 2. RIH 3. HTN 4. GERD 5. HLP 6. Asthma 7. PAD 8. CAD 9. Chronic lymphedema 10. Anxiety 11. Depression 12. OA Plan 1. RIH: surgery has offered repair but decision pending pt discussion with her family Thursday 2. Lovenox for DVT prophylaxis 3. Urine culture showed mixed urogenital erica 4. Appreciate subspecialty input 5. Continue home meds 6. Discussed plan of care with nursing 7. PT/OT 8. Recheck CBC and BMP tomorrow 9. Reviewed imaging: abd/pelv CT showed colonic diverticulosis, L renal cysts, and no acute processes; abd/pelv CTA showed cholesterol plaques in AA and L common femoral and RIH 10. Zofran prn for nausea 11. Pt has refused SNU, will discharge home with home health instead Problems: Comment Review of Relevant I have reviewed the following items delaney (where applicable) has been applied. Labs Microbiology 08/20/16 Urine Culture - Final, Complete 08/20/16 Urine Culture Result 1 (KARLOS) - Final, Complete Medications Current Medications Hydromorphone HCl (Dilaudid) 0.5 mg PRN Q1HR PRN IV SEVERE PAIN Last administered on 08/20/16 15:59; Start 08/20/16 at 10:30 Ondansetron HCl (Zofran) 4 mg 1X ONCE IV Last administered on 08/20/16 10:42; Start 08/20/16 at 10:30; Stop 08/20/16 at 10:33; Status DC Sodium Chloride 500 ml @ 500 mls/hr 1X ONCE IV Last administered on 08/20/16 10:41; Start 08/20/16 at 10:30; Stop 08/20/16 at 11:29; Status DC Iohexol (Omnipaque 300 Mg/ml) 75 ml 1X ONCE IV Last administered on 08/20/16 11:36; Start 08/20/16 at 11:15; Stop 08/20/16 at 11:25; Status DC Info (Do NOT chart on this entry -- for MONITORING) 1 each PRN DAILY PRN MC SEE COMMENTS; Start 08/20/16 at 11:30; Stop 08/21/16 at 12:44; Status DC Hydromorphone HCl (Dilaudid) 0.5 mg 1X ONCE IVP ; Start 08/20/16 at 11:45; Stop 08/20/16 at 11:46; Status DC Ondansetron HCl (Zofran) 4 mg PRN Q8HRS PRN IV NAUSEA/VOMITING; Start 08/20/16 at 13:15; Stop 08/21/16 at 12:47; Status DC Morphine Sulfate 2 mg PRN Q2HR PRN IV PAIN; Start 08/20/16 at 13:15; Stop at 13:14; Status DC Sodium Chloride 1,000 ml @ 125 mls/hr Q8H IV Last administered on 08/20/16 16: 00; Start 08/20/16 at 13:09; Stop 08/20/16 at 19:25; Status DC Polyethylene Glycol (miraLAX PACKET) 17 gm DAILY PO Last administered on 08:31; Start 08/20/16 at 15:15 Pantoprazole Sodium (Protonix) 40 mg DAILYAC PO Last administered on 08/24/16 06:11; Start 08/20/16 at 16:30 Potassium Chloride/Sodium Chloride 1,000 ml @ 75 mls/hr 1X ONCE IV Last administered on 08/20/16 20:57; Start 08/20/16 at 20:00; Stop 08/21/16 at 09:19; Status DC Sodium Chloride 1,000 ml @ 75 mls/hr [id number] IV Last administered on 08/21/16 12:08; Start 08/20/16 at 19:30; Stop 08/21/16 at 13:23; Status DC Acetaminophen (Tylenol) 325 mg PRN Q6HRS PRN PO MILD PAIN / TEMP Last administered on 08/21/16 20:43; Start 08/20/16 at 19:30 Hydralazine HCl (Apresoline) 10 mg PRN Q4HRS PRN IVP ELEVATED BP, SEE COMMENTS ; Start 08/20/16 at 19:30 Ondansetron HCl (Zofran) 4 mg PRN Q8HRS PRN IV NAUSEA/VOMITING; Start 08/20/16 at 19:30 Albuterol Sulfate (Ventolin Neb Soln) 2.5 mg PRN Q4HRS PRN NEB SHORTNESS OF BREATH; Start 08/20/16 at 19:30 Amlodipine Besylate (Norvasc) 7.5 mg HS PO Last administered on 08/23/16 19:49 ; Start 08/20/16 at 21:00 Atorvastatin Calcium (Lipitor) 20 mg QHS PO Last administered on 08/23/16 19:49 ; Start 08/20/16 at 21:00 Benzonatate (Tessalon Perle) 200 mg TID PRN PO COUGH Last administered on 01:44; Start 08/20/16 at 19:45 Clonidine HCl (Catapres) 0.1 mg HS PO Last administered on 08/23/16 19:50; Start 08/20/16 at 21:00 Clopidogrel Bisulfate (Plavix) 75 mg HS PO Last administered on 08/23/16 19:51 ; Start 08/20/16 at 21:00 Diazepam (Valium) 2.5 mg BID PO Last administered on 08/24/16 08:32; Start 08/20 at 21:00 Latanoprost (Xalatan) 1 drop QHS OU Last administered on 08/23/16 19:50; Start 08/20/16 at 21:00 Losartan Potassium (Cozaar) 50 mg DAILY PO Last administered on 08/24/16 08:31 ; Start 08/21/16 at 09:00 Montelukast Sodium (Singulair) 10 mg DAILY PO Last administered on 08/24/16 08: 31; Start 08/21/16 at 09:00 Tramadol HCl (Ultram) 50 mg Q8HRS PRN PO MODERATE - SEVERE PAIN Last administered on 08/24/16 12:09; Start 08/20/16 at 19:45 Non-Formulary Medication 108 mcg Q4HRS PRN INH SHORTNESS OF BREATH; Start at 19:45; Status UNV Escitalopram Oxalate (Lexapro) 10 mg DAILY PO Last administered on 08/24/16 08: 31; Start 08/21/16 at 09:00 Fluticasone Propionate (Flonase) 2 spray DAILY NS Last administered on 08:30; Start 08/21/16 at 09:00 Non-Formulary Medication 1 puff BID IH ; Start 08/20/16 at 21:00; Status UNV Hydrochlorothiazide (Microzide) 12.5 mg DAILY PO Last administered on 08/24/16 08:31; Start 08/21/16 at 09:00 Albuterol/ Ipratropium (Duoneb) 3 ml RTQID NEB Last administered on 08/24/16 11 :08; Start 08/20/16 at 20:00 Budesonide (Pulmicort) 0.5 mg RTBID NEB Last administered on 08/24/16 07:27; Start 08/20/16 at 20:00 Iohexol (Omnipaque 350 Mg/ml) 90 ml 1X ONCE IV Last administered on 08/21/16 07:00; Start 08/21/16 at 07:00; Stop 08/21/16 at 07:01; Status DC Info (Do NOT chart on this entry -- for MONITORING) 1 each PRN DAILY PRN MC SEE COMMENTS; Start 08/21/16 at 06:30; Stop 08/23/16 at 06:29; Status DC Potassium Chloride (Klor-Con) 40 meq 1X ONCE PO Last administered on 08/21/16 12:06; Start 08/21/16 at 08:00; Stop 08/21/16 at 08:02; Status DC Enoxaparin Sodium (Lovenox 40mg Syringe) 40 mg Q24H SQ Last administered on 08/21 12:09; Start 08/21/16 at 08:00; Stop 08/21/16 at 12:45; Status DC Enoxaparin Sodium (Lovenox 30mg Syringe) 30 mg DAILY SQ Last administered on 08:31; Start 08/22/16 at 09:00 Active Scripts Active Keflex (Cephalexin) 250 Mg Capsule 1 Cap PO TID Reported Betimol (Timolol) 5 Ml Drops 5 Ml OP Xalatan (Latanoprost) 2.5 Ml Drops 1 Drop EACHEYE QHS Escitalopram Oxalate 10 Mg Tablet 1 Tab PO DAILY Tramadol Hcl 50 Mg Tablet 1 Tab PO Q8HRS PRN Advair 250-50 Diskus (Fluticasone/Salmeterol) 1 Each Disk.w.dev 1 Puff IH BID Proair Hfa Inhaler (Albuterol Sulfate) 8.5 Gm Hfa.aer.ad 108 Mcg INH Q4HRS PRN Losartan Potassium 50 Mg Tablet 50 Mg PO DAILY Amlodipine Besylate 5 Mg Tablet 7.5 Mg PO HS Diazepam 5 Mg Tablet 2.5 Mg PO BID Hydrochlorothiazide Tablet (Hydrochlorothiazide) 12.5 Mg Tablet 1 Tab PO DAILY Atorvastatin Calcium 20 Mg Tablet 20 Mg PO DAILY Fluticasone Propionate 15.8 Ml [place].susp 50 Mcg NS DAILY Benzonatate 100 Mg Capsule 200 Mg PO TID PRN Plavix (Clopidogrel Bisulfate) 75 Mg Tablet 75 Mg PO HS 30 Days Montelukast Sodium Tablet (Montelukast Sodium) 10 Mg Tablet 10 Mg PO DAILY Clonidine Hcl 0.1 Mg Tablet 0.1 Mg PO HS Vitals/I & O Vital Sign - Last 24 Hours 08/23/16 08/23/16 08/23/16 08/23/16 15:00 15:00 19:00 19:20 Temp 97.8 98.1 97.8 98.1 Pulse 66 78 Resp 22 18 B/P (MAP) 136/62 (86) 141/70 (93) Pulse Ox 97 96 O2 Delivery Room Air Room Air Room Air Room Air 08/23/16 08/23/16 08/23/16 08/23/16 19:20 19:49 19:49 19:50 Pulse 66 66 Resp 18 B/P (MAP) 136/62 136/62 Pulse Ox 97 O2 Delivery Room Air Room Air 08/23/16 08/23/16 08/23/16 08/24/16 20:00 20:49 23:00 01:43 Temp 98.4 98.4 Pulse 96 Resp 18 18 18 B/P (MAP) 146/64 (91) Pulse Ox 97 95 95 O2 Delivery Room Air Room Air Room Air Room Air 08/24/16 08/24/16 08/24/16 08/24/16 03:00 07:00 07:29 08:00 Temp 97.7 98.2 97.7 98.2 Pulse 80 86 Resp 18 18 B/P (MAP) 136/67 (90) 121/65 (83) Pulse Ox 94 94 95 O2 Delivery Room Air Room Air Room Air Room Air 08/24/16 08/24/16 08/24/16 08/24/16 08:31 11:00 11:09 12:09 Temp 98.5 98.5 Pulse 86 79 Resp 18 20 B/P (MAP) 121/65 120/65 (83) Pulse Ox 94 93 O2 Delivery Room Air Room Air Room Air Intake and Output 08/23/16 08/23/16 08/24/16 15:00 23:00 07:00 Intake Total 720 ml 480 ml Balance 720 ml 480 ml EVELYN NEGRETE III DO Aug 24, 2016 12:36
[2016-08-24 14:00] VITALS: BP 137/66
--- NOTE | 2016-08-24 14:06 | PDOC ---
G I PROGRESS NOTE Reason for Follow-up ABD pain Subjective Pain unchanged Physical Exam Lungs clear CV S1 S2 ABD +BS, soft, + R sided tenderness Review of Relevant I have reviewed the following items delaney (where applicable) has been applied. Labs Microbiology 08/20/16 Urine Culture - Final, Complete 08/20/16 Urine Culture Result 1 (KARLOS) - Final, Complete Medications Current Medications Hydromorphone HCl (Dilaudid) 0.5 mg PRN Q1HR PRN IV SEVERE PAIN Last administered on 08/20/16 15:59; Start 08/20/16 at 10:30 Ondansetron HCl (Zofran) 4 mg 1X ONCE IV Last administered on 08/20/16 10:42; Start 08/20/16 at 10:30; Stop 08/20/16 at 10:33; Status DC Sodium Chloride 500 ml @ 500 mls/hr 1X ONCE IV Last administered on 08/20/16 10:41; Start 08/20/16 at 10:30; Stop 08/20/16 at 11:29; Status DC Iohexol (Omnipaque 300 Mg/ml) 75 ml 1X ONCE IV Last administered on 08/20/16 11:36; Start 08/20/16 at 11:15; Stop 08/20/16 at 11:25; Status DC Info (Do NOT chart on this entry -- for MONITORING) 1 each PRN DAILY PRN MC SEE COMMENTS; Start 08/20/16 at 11:30; Stop 08/21/16 at 12:44; Status DC Hydromorphone HCl (Dilaudid) 0.5 mg 1X ONCE IVP ; Start 08/20/16 at 11:45; Stop 08/20/16 at 11:46; Status DC Ondansetron HCl (Zofran) 4 mg PRN Q8HRS PRN IV NAUSEA/VOMITING; Start 08/20/16 at 13:15; Stop 08/21/16 at 12:47; Status DC Morphine Sulfate 2 mg PRN Q2HR PRN IV PAIN; Start 08/20/16 at 13:15; Stop at 13:14; Status DC Sodium Chloride 1,000 ml @ 125 mls/hr Q8H IV Last administered on 08/20/16 16: 00; Start 08/20/16 at 13:09; Stop 08/20/16 at 19:25; Status DC Polyethylene Glycol (miraLAX PACKET) 17 gm DAILY PO Last administered on 08:31; Start 08/20/16 at 15:15 Pantoprazole Sodium (Protonix) 40 mg DAILYAC PO Last administered on 08/24/16 06:11; Start 08/20/16 at 16:30 Potassium Chloride/Sodium Chloride 1,000 ml @ 75 mls/hr 1X ONCE IV Last administered on 08/20/16 20:57; Start 08/20/16 at 20:00; Stop 08/21/16 at 09:19; Status DC Sodium Chloride 1,000 ml @ 75 mls/hr [id number] IV Last administered on 08/21/16 12:08; Start 08/20/16 at 19:30; Stop 08/21/16 at 13:23; Status DC Acetaminophen (Tylenol) 325 mg PRN Q6HRS PRN PO MILD PAIN / TEMP Last administered on 08/21/16 20:43; Start 08/20/16 at 19:30 Hydralazine HCl (Apresoline) 10 mg PRN Q4HRS PRN IVP ELEVATED BP, SEE COMMENTS ; Start 08/20/16 at 19:30 Ondansetron HCl (Zofran) 4 mg PRN Q8HRS PRN IV NAUSEA/VOMITING; Start 08/20/16 at 19:30 Albuterol Sulfate (Ventolin Neb Soln) 2.5 mg PRN Q4HRS PRN NEB SHORTNESS OF BREATH; Start 08/20/16 at 19:30 Amlodipine Besylate (Norvasc) 7.5 mg HS PO Last administered on 08/23/16 19:49 ; Start 08/20/16 at 21:00 Atorvastatin Calcium (Lipitor) 20 mg QHS PO Last administered on 08/23/16 19:49 ; Start 08/20/16 at 21:00 Benzonatate (Tessalon Perle) 200 mg TID PRN PO COUGH Last administered on 01:44; Start 08/20/16 at 19:45 Clonidine HCl (Catapres) 0.1 mg HS PO Last administered on 08/23/16 19:50; Start 08/20/16 at 21:00 Clopidogrel Bisulfate (Plavix) 75 mg HS PO Last administered on 08/23/16 19:51 ; Start 08/20/16 at 21:00 Diazepam (Valium) 2.5 mg BID PO Last administered on 08/24/16 08:32; Start 08/20 at 21:00 Latanoprost (Xalatan) 1 drop QHS OU Last administered on 08/23/16 19:50; Start 08/20/16 at 21:00 Losartan Potassium (Cozaar) 50 mg DAILY PO Last administered on 08/24/16 08:31 ; Start 08/21/16 at 09:00 Montelukast Sodium (Singulair) 10 mg DAILY PO Last administered on 08/24/16 08: 31; Start 08/21/16 at 09:00 Tramadol HCl (Ultram) 50 mg Q8HRS PRN PO MODERATE - SEVERE PAIN Last administered on 08/24/16 12:09; Start 08/20/16 at 19:45 Non-Formulary Medication 108 mcg Q4HRS PRN INH SHORTNESS OF BREATH; Start at 19:45; Status UNV Escitalopram Oxalate (Lexapro) 10 mg DAILY PO Last administered on 08/24/16 08: 31; Start 08/21/16 at 09:00 Fluticasone Propionate (Flonase) 2 spray DAILY NS Last administered on 08:30; Start 08/21/16 at 09:00 Non-Formulary Medication 1 puff BID IH ; Start 08/20/16 at 21:00; Status UNV Hydrochlorothiazide (Microzide) 12.5 mg DAILY PO Last administered on 08/24/16 08:31; Start 08/21/16 at 09:00 Albuterol/ Ipratropium (Duoneb) 3 ml RTQID NEB Last administered on 08/24/16 11 :08; Start 08/20/16 at 20:00 Budesonide (Pulmicort) 0.5 mg RTBID NEB Last administered on 08/24/16 07:27; Start 08/20/16 at 20:00 Iohexol (Omnipaque 350 Mg/ml) 90 ml 1X ONCE IV Last administered on 08/21/16 07:00; Start 08/21/16 at 07:00; Stop 08/21/16 at 07:01; Status DC Info (Do NOT chart on this entry -- for MONITORING) 1 each PRN DAILY PRN MC SEE COMMENTS; Start 08/21/16 at 06:30; Stop 08/23/16 at 06:29; Status DC Potassium Chloride (Klor-Con) 40 meq 1X ONCE PO Last administered on 08/21/16 12:06; Start 08/21/16 at 08:00; Stop 08/21/16 at 08:02; Status DC Enoxaparin Sodium (Lovenox 40mg Syringe) 40 mg Q24H SQ Last administered on 08/21 12:09; Start 08/21/16 at 08:00; Stop 08/21/16 at 12:45; Status DC Enoxaparin Sodium (Lovenox 30mg Syringe) 30 mg DAILY SQ Last administered on 08:31; Start 08/22/16 at 09:00 Active Scripts Active Keflex (Cephalexin) 250 Mg Capsule 1 Cap PO TID Reported Betimol (Timolol) 5 Ml Drops 5 Ml OP Xalatan (Latanoprost) 2.5 Ml Drops 1 Drop EACHEYE QHS Escitalopram Oxalate 10 Mg Tablet 1 Tab PO DAILY Tramadol Hcl 50 Mg Tablet 1 Tab PO Q8HRS PRN Advair 250-50 Diskus (Fluticasone/Salmeterol) 1 Each Disk.w.dev 1 Puff IH BID Proair Hfa Inhaler (Albuterol Sulfate) 8.5 Gm Hfa.aer.ad 108 Mcg INH Q4HRS PRN Losartan Potassium 50 Mg Tablet 50 Mg PO DAILY Amlodipine Besylate 5 Mg Tablet 7.5 Mg PO HS Diazepam 5 Mg Tablet 2.5 Mg PO BID Hydrochlorothiazide Tablet (Hydrochlorothiazide) 12.5 Mg Tablet 1 Tab PO DAILY Atorvastatin Calcium 20 Mg Tablet 20 Mg PO DAILY Fluticasone Propionate 15.8 Ml [place].susp 50 Mcg NS DAILY Benzonatate 100 Mg Capsule 200 Mg PO TID PRN Plavix (Clopidogrel Bisulfate) 75 Mg Tablet 75 Mg PO HS 30 Days Montelukast Sodium Tablet (Montelukast Sodium) 10 Mg Tablet 10 Mg PO DAILY Clonidine Hcl 0.1 Mg Tablet 0.1 Mg PO HS Vitals/I & O Vital Sign - Last 24 Hours 08/23/16 08/23/16 08/23/16 08/23/16 15:00 15:00 19:00 19:20 Temp 97.8 98.1 97.8 98.1 Pulse 66 78 Resp 22 18 B/P (MAP) 136/62 (86) 141/70 (93) Pulse Ox 97 96 O2 Delivery Room Air Room Air Room Air Room Air 08/23/16 08/23/16 08/23/16 08/23/16 19:20 19:49 19:49 19:50 Pulse 66 66 Resp 18 B/P (MAP) 136/62 136/62 Pulse Ox 97 O2 Delivery Room Air Room Air 08/23/16 08/23/16 08/23/16 08/24/16 20:00 20:49 23:00 01:43 Temp 98.4 98.4 Pulse 96 Resp 18 18 18 B/P (MAP) 146/64 (91) Pulse Ox 97 95 95 O2 Delivery Room Air Room Air Room Air Room Air 08/24/16 08/24/16 08/24/16 08/24/16 03:00 07:00 07:29 08:00 Temp 97.7 98.2 97.7 98.2 Pulse 80 86 Resp 18 18 B/P (MAP) 136/67 (90) 121/65 (83) Pulse Ox 94 94 95 O2 Delivery Room Air Room Air Room Air Room Air 08/24/16 08/24/16 08/24/16 08/24/16 08:31 11:00 11:09 12:09 Temp 98.5 98.5 Pulse 86 79 Resp 18 20 B/P (MAP) 121/65 120/65 (83) Pulse Ox 94 93 O2 Delivery Room Air Room Air Room Air Intake and Output 08/23/16 08/23/16 08/24/16 15:00 23:00 07:00 Intake Total 720 ml 480 ml Balance 720 ml 480 ml Problem List Problems Medical Problems: (1) Right lower quadrant abdominal pain Status: Acute Assessment ABd pain- with RIH, await decision regarding possible repair,cpm EVELYN KRUEGER MD Aug 24, 2016 14:06
[2016-08-24 19:00] VITALS: BP 159/76
[2016-08-24] MEDS: CLOPIDOGREL BISULFATE 75 MG TABLET PO SCH (19:43)
[2016-08-24] MEDS: ATORVASTATIN CALCIUM 20 MG TABLET PO SCH (19:43)
[2016-08-24] MEDS: amLODIPine BESYLATE 5 MG TABLET PO SCH (19:44)
[2016-08-24] MEDS: cloNIDine HCL 0.1 MG TABLET PO SCH (19:44)
[2016-08-24] MEDS: LATANOPROST 0.005% OPHTH SOLUTION 2.5ML BOTTLE. OU SCH (19:44)
[2016-08-24 23:00] VITALS: BP 123/57
[2016-08-25] MEDS: BENZONATATE 100 MG CAPSULE. PO PRN ×3 (02:13→20:55)
[2016-08-25] MEDS: HYDROmorphone 2 MG/ML VIAL IV PRN (02:13)
[2016-08-25 03:00] VITALS: BP 140/70
[2016-08-25 05:25] LABS: BASO % 0 % (0-3); EOS % 7 % (0-3); HEMATOCRIT 35.4 % (36.0-47.0); HEMOGLOBIN 11.7 g/dL (12.0-15.5); LYMPH # 2.7 x10^3/uL (1.0-4.8); LYMPH % 29 % (24-48); MEAN CORPUSCULAR HEMOGLOBIN 31 pg (25-35); MEAN CORPUSCULAR HGB CONC 33 g/dL (31-37); MEAN CORPUSCULAR VOLUME 93 fL (79-100); MONO % 7 % (0-9); NEUT % 57 % (31-73); PLATELET COUNT 245 x10^3/uL (140-400); RED BLOOD COUNT 3.83 x10^6/uL (3.50-5.40); RED CELL DISTRIBUTION WIDTH 13.6 % (11.5-14.5)
[2016-08-25] MEDS: PANTOPRAZOLE 40 MG TABLET.DR. PO SCH (05:52)
[2016-08-25 05:58] LABS: CALCIUM 8.4 mg/dL (8.5-10.1); CREATININE 0.5 mg/dL (0.6-1.0); GFR 116.4; POTASSIUM 3.8 mmol/L (3.5-5.1)
--- NOTE | 2016-08-25 06:45 | PDOC ---
SURGICAL PROGRESS NOTE Subjective Late entry Pt seen yesterday 08/24/2016, but erroneously entered on wrong pt chart. this is note for 08/24. Pt with c/o RLQ abd pain, but no other c/o Vital Signs Vital Signs Date Time Temp Pulse Resp B/P (MAP) Pulse Ox O2 Delivery O2 Flow Rate FiO2 08/25/16 03:00 98.4 94 18 140/70 (93) 94 Room Air 98.4 I&O Intake and Output 08/25/16 07:00 Intake Total 530 ml Balance 530 ml Intake Oral 530 ml # Voids 3 # Bowel Movements 1 General: Alert, Oriented X3, Cooperative, No acute distress Abdomen: Soft, Other (TTP RLQ) Labs Laboratory Tests Test 08/25/16 03:45 White Blood Count 9.0 x10^3/uL (4.0-11.0) Red Blood Count 3.83 x10^6/uL (3.50-5.40) Hemoglobin 11.7 g/dL (12.0-15.5) Hematocrit 35.4 % (36.0-47.0) Mean Corpuscular Volume 93 fL (79-100) Mean Corpuscular Hemoglobin 31 pg (25-35) Mean Corpuscular Hemoglobin Concent 33 g/dL (31-37) Red Cell Distribution Width 13.6 % (11.5-14.5) Platelet Count 245 x10^3/uL (140-400) Neutrophils (%) (Auto) 57 % (31-73) Lymphocytes (%) (Auto) 29 % (24-48) Monocytes (%) (Auto) 7 % (0-9) Eosinophils (%) (Auto) 7 % (0-3) Basophils (%) (Auto) 0 % (0-3) Neutrophils # (Auto) 5.2 x10^3uL (1.8-7.7) Lymphocytes # (Auto) 2.7 x10^3/uL (1.0-4.8) Monocytes # (Auto) 0.6 x10^3/uL (0.0-1.1) Eosinophils # (Auto) 0.6 x10^3/uL (0.0-0.7) Basophils # (Auto) 0.0 x10^3/uL (0.0-0.2) Sodium Level 137 mmol/L (136-145) Potassium Level 3.8 mmol/L (3.5-5.1) Chloride Level 99 mmol/L (98-107) Carbon Dioxide Level 31 mmol/L (21-32) Anion Gap 7 (6-14) Blood Urea Nitrogen 10 mg/dL (7-20) Creatinine 0.5 mg/dL (0.6-1.0) Estimated GFR (Cockcroft-Gault) 116.4 Glucose Level 106 mg/dL (70-99) Calcium Level 8.4 mg/dL (8.5-10.1) Laboratory Tests Test 08/25/16 03:45 White Blood Count 9.0 x10^3/uL (4.0-11.0) Red Blood Count 3.83 x10^6/uL (3.50-5.40) Hemoglobin 11.7 g/dL (12.0-15.5) Hematocrit 35.4 % (36.0-47.0) Mean Corpuscular Volume 93 fL (79-100) Mean Corpuscular Hemoglobin 31 pg (25-35) Mean Corpuscular Hemoglobin Concent 33 g/dL (31-37) Red Cell Distribution Width 13.6 % (11.5-14.5) Platelet Count 245 x10^3/uL (140-400) Neutrophils (%) (Auto) 57 % (31-73) Lymphocytes (%) (Auto) 29 % (24-48) Monocytes (%) (Auto) 7 % (0-9) Eosinophils (%) (Auto) 7 % (0-3) Basophils (%) (Auto) 0 % (0-3) Neutrophils # (Auto) 5.2 x10^3uL (1.8-7.7) Lymphocytes # (Auto) 2.7 x10^3/uL (1.0-4.8) Monocytes # (Auto) 0.6 x10^3/uL (0.0-1.1) Eosinophils # (Auto) 0.6 x10^3/uL (0.0-0.7) Basophils # (Auto) 0.0 x10^3/uL (0.0-0.2) Sodium Level 137 mmol/L (136-145) Potassium Level 3.8 mmol/L (3.5-5.1) Chloride Level 99 mmol/L (98-107) Carbon Dioxide Level 31 mmol/L (21-32) Anion Gap 7 (6-14) Blood Urea Nitrogen 10 mg/dL (7-20) Creatinine 0.5 mg/dL (0.6-1.0) Estimated GFR (Cockcroft-Gault) 116.4 Glucose Level 106 mg/dL (70-99) Calcium Level 8.4 mg/dL (8.5-10.1) Problem List Problems Medical Problems: (1) Right lower quadrant abdominal pain Status: Acute Assessment/Plan offered repair but pt wishes to d/w family first Problems: HORACIO MALCOLM MD Aug 25, 2016 06:45
[2016-08-25 07:00] VITALS: BP 128/70
[2016-08-25] MEDS: IPRATRPIUM/ALBUTEROL 0.5/2.5MG 3 ML NEBU. NEB SCH ×4 (07:23→19:18)
[2016-08-25] MEDS: BUDESONIDE 0.5 MG/2 ML NEBU. NEB SCH ×2 (07:23→19:18)
[2016-08-25] MEDS: FLUTICASONE 50MCG/NASAL SPRAY 16GM BOTTLE. NS SCH (08:43)
[2016-08-25] MEDS: POLYETHYLENE GLYCOL 3350 17 GM PACKET. PO SCH (08:43)
[2016-08-25] MEDS: ENOXAPARIN 30 MG/0.3 ML SYRINGE. SQ SCH (08:44)
[2016-08-25] MEDS: ESCITALOPRAM 10 MG TABLET. PO SCH (08:44)
[2016-08-25] MEDS: hydroCHLOROthiazide 12.5 MG CAPSULE PO SCH (08:45)
[2016-08-25] MEDS: MONTELUKAST SODIUM 10 MG TABLET. PO SCH (08:45)
[2016-08-25] MEDS: LOSARTAN POTASSIUM 50 MG TABLET. PO SCH (08:45)
[2016-08-25] MEDS: traMADol 50 MG TABLET PO PRN ×2 (08:46→17:16)
[2016-08-25] MEDS: diazePAM 5 MG TABLET PO SCH ×2 (08:47→20:55)
--- NOTE | 2016-08-25 09:54 | PDOC ---
[facility] [employer] [facility] [employer] 08/25/16 0954: SURGICAL PROGRESS NOTE Subjective continued RLQ pain she wanted to d/w family possible surgery Vital Signs Vital Signs Date Time Temp Pulse Resp B/P (MAP) Pulse Ox O2 Delivery O2 Flow Rate FiO2 08/25/16 08:46 94 Room Air 08/25/16 08:45 87 128/70 08/25/16 07:00 98.1 22 98.1 I&O Intake and Output 08/25/16 06:59 Intake Total 530 ml Balance 530 ml Intake Oral 530 ml # Voids 3 # Bowel Movements 1 General: Alert, Oriented X3, Cooperative, No acute distress Abdomen: Soft, Other (tender RLQ) Labs Laboratory Tests Test 08/25/16 03:45 White Blood Count 9.0 x10^3/uL (4.0-11.0) Red Blood Count 3.83 x10^6/uL (3.50-5.40) Hemoglobin 11.7 g/dL (12.0-15.5) Hematocrit 35.4 % (36.0-47.0) Mean Corpuscular Volume 93 fL (79-100) Mean Corpuscular Hemoglobin 31 pg (25-35) Mean Corpuscular Hemoglobin Concent 33 g/dL (31-37) Red Cell Distribution Width 13.6 % (11.5-14.5) Platelet Count 245 x10^3/uL (140-400) Neutrophils (%) (Auto) 57 % (31-73) Lymphocytes (%) (Auto) 29 % (24-48) Monocytes (%) (Auto) 7 % (0-9) Eosinophils (%) (Auto) 7 % (0-3) Basophils (%) (Auto) 0 % (0-3) Neutrophils # (Auto) 5.2 x10^3uL (1.8-7.7) Lymphocytes # (Auto) 2.7 x10^3/uL (1.0-4.8) Monocytes # (Auto) 0.6 x10^3/uL (0.0-1.1) Eosinophils # (Auto) 0.6 x10^3/uL (0.0-0.7) Basophils # (Auto) 0.0 x10^3/uL (0.0-0.2) Sodium Level 137 mmol/L (136-145) Potassium Level 3.8 mmol/L (3.5-5.1) Chloride Level 99 mmol/L (98-107) Carbon Dioxide Level 31 mmol/L (21-32) Anion Gap 7 (6-14) Blood Urea Nitrogen 10 mg/dL (7-20) Creatinine 0.5 mg/dL (0.6-1.0) Estimated GFR (Cockcroft-Gault) 116.4 Glucose Level 106 mg/dL (70-99) Calcium Level 8.4 mg/dL (8.5-10.1) Laboratory Tests Test 08/25/16 03:45 White Blood Count 9.0 x10^3/uL (4.0-11.0) Red Blood Count 3.83 x10^6/uL (3.50-5.40) Hemoglobin 11.7 g/dL (12.0-15.5) Hematocrit 35.4 % (36.0-47.0) Mean Corpuscular Volume 93 fL (79-100) Mean Corpuscular Hemoglobin 31 pg (25-35) Mean Corpuscular Hemoglobin Concent 33 g/dL (31-37) Red Cell Distribution Width 13.6 % (11.5-14.5) Platelet Count 245 x10^3/uL (140-400) Neutrophils (%) (Auto) 57 % (31-73) Lymphocytes (%) (Auto) 29 % (24-48) Monocytes (%) (Auto) 7 % (0-9) Eosinophils (%) (Auto) 7 % (0-3) Basophils (%) (Auto) 0 % (0-3) Neutrophils # (Auto) 5.2 x10^3uL (1.8-7.7) Lymphocytes # (Auto) 2.7 x10^3/uL (1.0-4.8) Monocytes # (Auto) 0.6 x10^3/uL (0.0-1.1) Eosinophils # (Auto) 0.6 x10^3/uL (0.0-0.7) Basophils # (Auto) 0.0 x10^3/uL (0.0-0.2) Sodium Level 137 mmol/L (136-145) Potassium Level 3.8 mmol/L (3.5-5.1) Chloride Level 99 mmol/L (98-107) Carbon Dioxide Level 31 mmol/L (21-32) Anion Gap 7 (6-14) Blood Urea Nitrogen 10 mg/dL (7-20) Creatinine 0.5 mg/dL (0.6-1.0) Estimated GFR (Cockcroft-Gault) 116.4 Glucose Level 106 mg/dL (70-99) Calcium Level 8.4 mg/dL (8.5-10.1) Problem List Problems Medical Problems: (1) Right lower quadrant abdominal pain Status: Acute Assessment/Plan hernia will have Dr Callum GARCIA, she wished to discuss with family , but does continue to have pain Problems: HORACIO MALCOLM MD 08/25/16 1730: SURGICAL PROGRESS NOTE Assessment/Plan Pt seen and examined. Agree with Ms. May's note Pt with persistent pain abd TTP RLQ d/w pt and pt's son will plan repair 08/26 R/B/A d/w them Problems: BENTLEY AMY APRN Aug 25, 2016 09:54 HORACIO MALCOLM MD Aug 25, 2016 17:30
[2016-08-25 10:13] VITALS: BP 120/60
--- NOTE | 2016-08-25 12:04 | PDOC ---
Subjective: Subjective: RLQ pain, not much appetite today. Son says she has decided to proceed w/ hernia surgery. Objective: Vital Signs: Vital Signs Date Time Temp Pulse Resp B/P (MAP) Pulse Ox O2 Delivery O2 Flow Rate FiO2 08/25/16 10:23 92 Room Air 08/25/16 10:13 97.7 92 18 120/60 (80) 97.7 Labs: Laboratory Tests Test 08/25/16 03:45 White Blood Count 9.0 x10^3/uL Red Blood Count 3.83 x10^6/uL Hemoglobin 11.7 g/dL Hematocrit 35.4 % Mean Corpuscular Volume 93 fL Mean Corpuscular Hemoglobin 31 pg Mean Corpuscular Hemoglobin Concent 33 g/dL Red Cell Distribution Width 13.6 % Platelet Count 245 x10^3/uL Neutrophils (%) (Auto) 57 % Lymphocytes (%) (Auto) 29 % Monocytes (%) (Auto) 7 % Eosinophils (%) (Auto) 7 % Basophils (%) (Auto) 0 % Neutrophils # (Auto) 5.2 x10^3uL Lymphocytes # (Auto) 2.7 x10^3/uL Monocytes # (Auto) 0.6 x10^3/uL Eosinophils # (Auto) 0.6 x10^3/uL Basophils # (Auto) 0.0 x10^3/uL Sodium Level 137 mmol/L Potassium Level 3.8 mmol/L Chloride Level 99 mmol/L Carbon Dioxide Level 31 mmol/L Anion Gap 7 Blood Urea Nitrogen 10 mg/dL Creatinine 0.5 mg/dL Estimated GFR (Cockcroft-Gault) 116.4 Glucose Level 106 mg/dL Calcium Level 8.4 mg/dL PE: GEN: NAD, sitting up in bed LUNGS: clear HEART: S1S2 ABD: RLQ tenderness NEURO/PSYCH: A & O 3 A/P: RLQ pain, hernia (incisional vs inguinal) Decreased appetite -- Has decided to proceed w/ surgical repair. D/w GUSTAVO. LA NENA CORDOBA Aug 25, 2016 12:04
[2016-08-25] MEDS: oxyCODONE/APAP 5/325 1 TAB TABLET PO PRN ×2 (12:43→20:55)
[2016-08-25 15:00] VITALS: BP 108/59
--- NOTE | 2016-08-25 15:26 | PDOC ---
PROGRESS NOTES Chief Complaint Chief Complaint 1. RLQ abd pain 2. RIH 3. HTN 4. GERD 5. HLP 6. Asthma 7. PAD 8. CAD 9. Chronic lymphedema 10. Anxiety 11. Depression 12. OA History of Present Illness History of Present Illness pt sitting up in chair, some pain control problems discussed with her son, Eric ferrari will discuss whether to proceed with RIH repair gen surg following Vitals Vitals Vital Signs Date Time Temp Pulse Resp B/P (MAP) Pulse Ox O2 Delivery O2 Flow Rate FiO2 08/25/16 15:00 96 Room Air 08/25/16 10:13 97.7 92 18 120/60 (80) 97.7 Physical Exam General: Alert, Oriented X3, Cooperative, No acute distress Heart: Regular rate, Normal S1, Normal S2 Lungs: Clear Abdomen: Soft, Other (tender RLQ) Extremities: No clubbing, No cyanosis Skin: No rashes, No breakdown, No significant lesion Labs LABS Laboratory Tests Test 08/25/16 03:45 White Blood Count 9.0 x10^3/uL (4.0-11.0) Red Blood Count 3.83 x10^6/uL (3.50-5.40) Hemoglobin 11.7 g/dL (12.0-15.5) Hematocrit 35.4 % (36.0-47.0) Mean Corpuscular Volume 93 fL (79-100) Mean Corpuscular Hemoglobin 31 pg (25-35) Mean Corpuscular Hemoglobin Concent 33 g/dL (31-37) Red Cell Distribution Width 13.6 % (11.5-14.5) Platelet Count 245 x10^3/uL (140-400) Neutrophils (%) (Auto) 57 % (31-73) Lymphocytes (%) (Auto) 29 % (24-48) Monocytes (%) (Auto) 7 % (0-9) Eosinophils (%) (Auto) 7 % (0-3) Basophils (%) (Auto) 0 % (0-3) Neutrophils # (Auto) 5.2 x10^3uL (1.8-7.7) Lymphocytes # (Auto) 2.7 x10^3/uL (1.0-4.8) Monocytes # (Auto) 0.6 x10^3/uL (0.0-1.1) Eosinophils # (Auto) 0.6 x10^3/uL (0.0-0.7) Basophils # (Auto) 0.0 x10^3/uL (0.0-0.2) Sodium Level 137 mmol/L (136-145) Potassium Level 3.8 mmol/L (3.5-5.1) Chloride Level 99 mmol/L (98-107) Carbon Dioxide Level 31 mmol/L (21-32) Anion Gap 7 (6-14) Blood Urea Nitrogen 10 mg/dL (7-20) Creatinine 0.5 mg/dL (0.6-1.0) Estimated GFR (Cockcroft-Gault) 116.4 Glucose Level 106 mg/dL (70-99) Calcium Level 8.4 mg/dL (8.5-10.1) Review of Systems Review of Systems abd pain, nausea some weakness confusion at baseline Assessment and Plan Assessmemt and Plan Problems Medical Problems: (1) Right lower quadrant abdominal pain Status: Acute Problems: Comment Review of Relevant I have reviewed the following items delaney (where applicable) has been applied. Labs Laboratory Tests Test 08/25/16 03:45 White Blood Count 9.0 x10^3/uL (4.0-11.0) Red Blood Count 3.83 x10^6/uL (3.50-5.40) Hemoglobin 11.7 g/dL (12.0-15.5) Hematocrit 35.4 % (36.0-47.0) Mean Corpuscular Volume 93 fL (79-100) Mean Corpuscular Hemoglobin 31 pg (25-35) Mean Corpuscular Hemoglobin Concent 33 g/dL (31-37) Red Cell Distribution Width 13.6 % (11.5-14.5) Platelet Count 245 x10^3/uL (140-400) Neutrophils (%) (Auto) 57 % (31-73) Lymphocytes (%) (Auto) 29 % (24-48) Monocytes (%) (Auto) 7 % (0-9) Eosinophils (%) (Auto) 7 % (0-3) Basophils (%) (Auto) 0 % (0-3) Neutrophils # (Auto) 5.2 x10^3uL (1.8-7.7) Lymphocytes # (Auto) 2.7 x10^3/uL (1.0-4.8) Monocytes # (Auto) 0.6 x10^3/uL (0.0-1.1) Eosinophils # (Auto) 0.6 x10^3/uL (0.0-0.7) Basophils # (Auto) 0.0 x10^3/uL (0.0-0.2) Sodium Level 137 mmol/L (136-145) Potassium Level 3.8 mmol/L (3.5-5.1) Chloride Level 99 mmol/L (98-107) Carbon Dioxide Level 31 mmol/L (21-32) Anion Gap 7 (6-14) Blood Urea Nitrogen 10 mg/dL (7-20) Creatinine 0.5 mg/dL (0.6-1.0) Estimated GFR (Cockcroft-Gault) 116.4 Glucose Level 106 mg/dL (70-99) Calcium Level 8.4 mg/dL (8.5-10.1) Laboratory Tests Test 08/25/16 03:45 White Blood Count 9.0 x10^3/uL (4.0-11.0) Red Blood Count 3.83 x10^6/uL (3.50-5.40) Hemoglobin 11.7 g/dL (12.0-15.5) Hematocrit 35.4 % (36.0-47.0) Mean Corpuscular Volume 93 fL (79-100) Mean Corpuscular Hemoglobin 31 pg (25-35) Mean Corpuscular Hemoglobin Concent 33 g/dL (31-37) Red Cell Distribution Width 13.6 % (11.5-14.5) Platelet Count 245 x10^3/uL (140-400) Neutrophils (%) (Auto) 57 % (31-73) Lymphocytes (%) (Auto) 29 % (24-48) Monocytes (%) (Auto) 7 % (0-9) Eosinophils (%) (Auto) 7 % (0-3) Basophils (%) (Auto) 0 % (0-3) Neutrophils # (Auto) 5.2 x10^3uL (1.8-7.7) Lymphocytes # (Auto) 2.7 x10^3/uL (1.0-4.8) Monocytes # (Auto) 0.6 x10^3/uL (0.0-1.1) Eosinophils # (Auto) 0.6 x10^3/uL (0.0-0.7) Basophils # (Auto) 0.0 x10^3/uL (0.0-0.2) Sodium Level 137 mmol/L (136-145) Potassium Level 3.8 mmol/L (3.5-5.1) Chloride Level 99 mmol/L (98-107) Carbon Dioxide Level 31 mmol/L (21-32) Anion Gap 7 (6-14) Blood Urea Nitrogen 10 mg/dL (7-20) Creatinine 0.5 mg/dL (0.6-1.0) Estimated GFR (Cockcroft-Gault) 116.4 Glucose Level 106 mg/dL (70-99) Calcium Level 8.4 mg/dL (8.5-10.1) Microbiology 08/20/16 Urine Culture - Final, Complete 08/20/16 Urine Culture Result 1 (KARLOS) - Final, Complete Medications Current Medications Hydromorphone HCl (Dilaudid) 0.5 mg PRN Q1HR PRN IV SEVERE PAIN Last administered on 08/25/16 02:13; Start 08/20/16 at 10:30; Stop 08/25/16 at 02:14 ; Status DC Ondansetron HCl (Zofran) 4 mg 1X ONCE IV Last administered on 08/20/16 10:42; Start 08/20/16 at 10:30; Stop 08/20/16 at 10:33; Status DC Sodium Chloride 500 ml @ 500 mls/hr 1X ONCE IV Last administered on 08/20/16 10:41; Start 08/20/16 at 10:30; Stop 08/20/16 at 11:29; Status DC Iohexol (Omnipaque 300 Mg/ml) 75 ml 1X ONCE IV Last administered on 08/20/16 11:36; Start 08/20/16 at 11:15; Stop 08/20/16 at 11:25; Status DC Info (Do NOT chart on this entry -- for MONITORING) 1 each PRN DAILY PRN MC SEE COMMENTS; Start 08/20/16 at 11:30; Stop 08/21/16 at 12:44; Status DC Hydromorphone HCl (Dilaudid) 0.5 mg 1X ONCE IVP ; Start 08/20/16 at 11:45; Stop 08/20/16 at 11:46; Status DC Ondansetron HCl (Zofran) 4 mg PRN Q8HRS PRN IV NAUSEA/VOMITING; Start 08/20/16 at 13:15; Stop 08/21/16 at 12:47; Status DC Morphine Sulfate 2 mg PRN Q2HR PRN IV PAIN; Start 08/20/16 at 13:15; Stop at 13:14; Status DC Sodium Chloride 1,000 ml @ 125 mls/hr Q8H IV Last administered on 08/20/16 16: 00; Start 08/20/16 at 13:09; Stop 08/20/16 at 19:25; Status DC Polyethylene Glycol (miraLAX PACKET) 17 gm DAILY PO Last administered on 08:43; Start 08/20/16 at 15:15 Pantoprazole Sodium (Protonix) 40 mg DAILYAC PO Last administered on 08/25/16 05:52; Start 08/20/16 at 16:30 Potassium Chloride/Sodium Chloride 1,000 ml @ 75 mls/hr 1X ONCE IV Last administered on 08/20/16 20:57; Start 08/20/16 at 20:00; Stop 08/21/16 at 09:19; Status DC Sodium Chloride 1,000 ml @ 75 mls/hr [id number] IV Last administered on 08/21/16 12:08; Start 08/20/16 at 19:30; Stop 08/21/16 at 13:23; Status DC Acetaminophen (Tylenol) 325 mg PRN Q6HRS PRN PO MILD PAIN / TEMP Last administered on 08/21/16 20:43; Start 08/20/16 at 19:30 Hydralazine HCl (Apresoline) 10 mg PRN Q4HRS PRN IVP ELEVATED BP, SEE COMMENTS ; Start 08/20/16 at 19:30 Ondansetron HCl (Zofran) 4 mg PRN Q8HRS PRN IV NAUSEA/VOMITING; Start 08/20/16 at 19:30 Albuterol Sulfate (Ventolin Neb Soln) 2.5 mg PRN Q4HRS PRN NEB SHORTNESS OF BREATH; Start 08/20/16 at 19:30 Amlodipine Besylate (Norvasc) 7.5 mg HS PO Last administered on 08/24/16 19:44 ; Start 08/20/16 at 21:00 Atorvastatin Calcium (Lipitor) 20 mg QHS PO Last administered on 08/24/16 19:43 ; Start 08/20/16 at 21:00 Benzonatate (Tessalon Perle) 200 mg TID PRN PO COUGH Last administered on 08:50; Start 08/20/16 at 19:45 Clonidine HCl (Catapres) 0.1 mg HS PO Last administered on 08/24/16 19:44; Start 08/20/16 at 21:00 Clopidogrel Bisulfate (Plavix) 75 mg HS PO Last administered on 08/24/16 19:43 ; Start 08/20/16 at 21:00 Diazepam (Valium) 2.5 mg BID PO Last administered on 08/25/16 08:47; Start 08/20/16 at 21:00 Latanoprost (Xalatan) 1 drop QHS OU Last administered on 08/24/16 19:44; Start 08/20/16 at 21:00 Losartan Potassium (Cozaar) 50 mg DAILY PO Last administered on 08/25/16 08:45 ; Start 08/21/16 at 09:00 Montelukast Sodium (Singulair) 10 mg DAILY PO Last administered on 08/25/16 08 :45; Start 08/21/16 at 09:00 Tramadol HCl (Ultram) 50 mg Q8HRS PRN PO MODERATE - SEVERE PAIN Last administered on 08/25/16 08:46; Start 08/20/16 at 19:45 Non-Formulary Medication 108 mcg Q4HRS PRN INH SHORTNESS OF BREATH; Start at 19:45; Status UNV Escitalopram Oxalate (Lexapro) 10 mg DAILY PO Last administered on 08/25/16 08 :44; Start 08/21/16 at 09:00 Fluticasone Propionate (Flonase) 2 spray DAILY NS Last administered on 08:43; Start 08/21/16 at 09:00 Non-Formulary Medication 1 puff BID IH ; Start 08/20/16 at 21:00; Status UNV Hydrochlorothiazide (Microzide) 12.5 mg DAILY PO Last administered on 08:45; Start 08/21/16 at 09:00 Albuterol/ Ipratropium (Duoneb) 3 ml RTQID NEB Last administered on 08/25/16 13:07; Start 08/20/16 at 20:00 Budesonide (Pulmicort) 0.5 mg RTBID NEB Last administered on 08/25/16 07:23; Start 08/20/16 at 20:00 Iohexol (Omnipaque 350 Mg/ml) 90 ml 1X ONCE IV Last administered on 08/21/16 07:00; Start 08/21/16 at 07:00; Stop 08/21/16 at 07:01; Status DC Info (Do NOT chart on this entry -- for MONITORING) 1 each PRN DAILY PRN MC SEE COMMENTS; Start 08/21/16 at 06:30; Stop 08/23/16 at 06:29; Status DC Potassium Chloride (Klor-Con) 40 meq 1X ONCE PO Last administered on 08/21/16 12:06; Start 08/21/16 at 08:00; Stop 08/21/16 at 08:02; Status DC Enoxaparin Sodium (Lovenox 40mg Syringe) 40 mg Q24H SQ Last administered on 08/21 12:09; Start 08/21/16 at 08:00; Stop 08/21/16 at 12:45; Status DC Enoxaparin Sodium (Lovenox 30mg Syringe) 30 mg DAILY SQ Last administered on 08:44; Start 08/22/16 at 09:00 Oxycodone/ Acetaminophen (Percocet 5/325) 1 tab PRN Q4HRS PRN PO PAIN Last administered on 08/25/16 12:43; Start 08/25/16 at 12:30 Active Scripts Active Keflex (Cephalexin) 250 Mg Capsule 1 Cap PO TID Reported Betimol (Timolol) 5 Ml Drops 5 Ml OP Xalatan (Latanoprost) 2.5 Ml Drops 1 Drop EACHEYE QHS Escitalopram Oxalate 10 Mg Tablet 1 Tab PO DAILY Tramadol Hcl 50 Mg Tablet 1 Tab PO Q8HRS PRN Advair 250-50 Diskus (Fluticasone/Salmeterol) 1 Each Disk.w.dev 1 Puff IH BID Proair Hfa Inhaler (Albuterol Sulfate) 8.5 Gm Hfa.aer.ad 108 Mcg INH Q4HRS PRN Losartan Potassium 50 Mg Tablet 50 Mg PO DAILY Amlodipine Besylate 5 Mg Tablet 7.5 Mg PO HS Diazepam 5 Mg Tablet 2.5 Mg PO BID Hydrochlorothiazide Tablet (Hydrochlorothiazide) 12.5 Mg Tablet 1 Tab PO DAILY Atorvastatin Calcium 20 Mg Tablet 20 Mg PO DAILY Fluticasone Propionate 15.8 Ml [place].susp 50 Mcg NS DAILY Benzonatate 100 Mg Capsule 200 Mg PO TID PRN Plavix (Clopidogrel Bisulfate) 75 Mg Tablet 75 Mg PO HS 30 Days Montelukast Sodium Tablet (Montelukast Sodium) 10 Mg Tablet 10 Mg PO DAILY Clonidine Hcl 0.1 Mg Tablet 0.1 Mg PO HS Vitals/I & O Vital Sign - Last 24 Hours 08/24/16 08/24/16 08/24/16 08/24/16 19:00 19:43 19:44 19:44 Temp 97.8 97.8 Pulse 94 87 87 Resp 18 18 B/P (MAP) 159/76 (103) 149/80 149/80 Pulse Ox 94 94 O2 Delivery Room Air Room Air 08/24/16 08/24/16 08/24/16 08/25/16 19:58 20:03 23:00 02:13 Temp 97.9 97.9 Pulse 91 Resp 17 18 B/P (MAP) 123/57 (79) Pulse Ox 92 92 O2 Delivery Room Air Room Air Room Air Room Air 08/25/16 08/25/16 08/25/16 08/25/16 03:00 07:00 07:24 08:00 Temp 98.4 98.1 98.4 98.1 Pulse 94 87 Resp 18 22 B/P (MAP) 140/70 (93) 128/70 (89) Pulse Ox 94 94 94 O2 Delivery Room Air Room Air Room Air Room Air 08/25/16 08/25/16 08/25/16 08/25/16 08:45 08:46 10:13 10:23 Temp 97.7 97.7 Pulse 87 92 Resp 18 B/P (MAP) 128/70 120/60 (80) Pulse Ox 94 92 92 O2 Delivery Room Air Room Air Room Air 08/25/16 08/25/1617 12:43 13:08 15:00 Pulse Ox 92 96 96 O2 Delivery Room Air Room Air Room Air Intake and Output 08/24/16 08/24/16 08/25/16 15:00 23:00 07:00 Intake Total 180 ml 350 ml Balance 180 ml 350 ml REENA SHIRLEY MD Aug 25, 2016 15:26
[2016-08-25 19:00] VITALS: BP 116/67
[2016-08-25] MEDS: CLOPIDOGREL BISULFATE 75 MG TABLET PO SCH (20:55)
[2016-08-25] MEDS: LATANOPROST 0.005% OPHTH SOLUTION 2.5ML BOTTLE. OU SCH (20:56)
[2016-08-25] MEDS: amLODIPine BESYLATE 5 MG TABLET PO SCH (20:56)
[2016-08-25] MEDS: ATORVASTATIN CALCIUM 20 MG TABLET PO SCH (20:56)
[2016-08-25] MEDS: cloNIDine HCL 0.1 MG TABLET PO SCH (20:58)
[2016-08-25 23:02] VITALS: BP 124/61
[2016-08-26] VITALS (12 sets, daily range): BP systolic 121–186; BP diastolic 47–107
[2016-08-26] MEDS: traMADol 50 MG TABLET PO PRN (02:11)
[2016-08-26 04:50] LABS: BASO % 0 % (0-3); EOS % 4 % (0-3); HEMATOCRIT 35.6 % (36.0-47.0); LYMPH # 2.9 x10^3/uL (1.0-4.8); LYMPH % 28 % (24-48); MEAN CORPUSCULAR HEMOGLOBIN 31 pg (25-35); MEAN CORPUSCULAR HGB CONC 34 g/dL (31-37); MEAN CORPUSCULAR VOLUME 92 fL (79-100); MONO % 7 % (0-9); NEUT % 60 % (31-73); PLATELET COUNT 256 x10^3/uL (140-400); RED BLOOD COUNT 3.87 x10^6/uL (3.50-5.40); RED CELL DISTRIBUTION WIDTH 13.7 % (11.5-14.5); WHITE BLOOD COUNT 10.3 x10^3/uL (4.0-11.0)
[2016-08-26 05:30] LABS: CALCIUM 8.9 mg/dL (8.5-10.1); CREATININE 0.6 mg/dL (0.6-1.0); GFR 94.3; POTASSIUM 3.9 mmol/L (3.5-5.1)
[2016-08-26] MEDS: PANTOPRAZOLE 40 MG TABLET.DR. PO SCH (05:59)
[2016-08-26] MEDS: BUDESONIDE 0.5 MG/2 ML NEBU. NEB SCH ×2 (08:12→20:53)
[2016-08-26] MEDS: IPRATRPIUM/ALBUTEROL 0.5/2.5MG 3 ML NEBU. NEB SCH ×4 (08:12→20:52)
[2016-08-26] MEDS ORDERED: IV RINGERS,LACTATED 1000ML 1,000 ML IV SCH (08:44)
[2016-08-26] MEDS ORDERED: fentaNYL PF VIAL 100 MCG/2 ML VIAL IV PRN ×2 (08:45→14:45)
[2016-08-26] MEDS ORDERED: PROCHLORPERAZINE 10 MG/2 ML VIAL. IV PRN ×2 (08:45→16:15)
[2016-08-26] MEDS ORDERED: MORPHINE SULFATE 2 MG/ML DISP.SYRIN. IV PRN (08:45)
[2016-08-26] MEDS ORDERED: ONDANSETRON PF 4 MG/2 ML VIAL. IV PRN (08:45)
[2016-08-26] MEDS ORDERED: LIDOCAINE 1% 1 ML SYRINGE. ID PRN (08:45)
[2016-08-26] MEDS ORDERED: HYDROmorphone 2 MG/ML VIAL IV PRN (08:45)
[2016-08-26] MEDS: diazePAM 5 MG TABLET PO SCH ×2 (09:00→21:11)
[2016-08-26] MEDS: MONTELUKAST SODIUM 10 MG TABLET. PO SCH ×2 (09:00→13:40)
[2016-08-26] MEDS: POLYETHYLENE GLYCOL 3350 17 GM PACKET. PO SCH (09:00)
[2016-08-26] MEDS ORDERED: LIDOCAINE 2% PF Vial for OR 5 ML VIAL. ONE (09:44)
[2016-08-26] MEDS ORDERED: DEXAMETHASONE SOD PHOS 20 MG/5 ML VIAL. ONE (09:44)
[2016-08-26] MEDS ORDERED: ONDANSETRON PF 4 MG/2 ML VIAL. ONE (09:44)
[2016-08-26] MEDS ORDERED: PROPOFOL 20 ML IV ONE (09:44)
[2016-08-26] MEDS ORDERED: fentaNYL PF VIAL 100 MCG/2 ML VIAL ONE (09:45)
[2016-08-26] MEDS ORDERED: BUPIVACAINE-EPI 0.5%-1:200000 50 ML VIAL. ONE (10:23)
--- NOTE | 2016-08-26 10:26 | PDOC ---
SURGICAL PROGRESS NOTE Subjective Pre-Op Note 86 yo F with RIH with pain TO OR for repair R/B/A d/w pt and pt's son and daughter on phone Vital Signs Vital Signs Date Time Temp Pulse Resp B/P (MAP) Pulse Ox O2 Delivery O2 Flow Rate FiO2 08/26/16 09:55 97.6 85 20 152/71 94 Room Air 97.6 I&O Intake and Output 08/26/16 07:00 Intake Total 720 ml Balance 720 ml Intake Oral 720 ml # Voids 5 Labs Laboratory Tests Test 08/25/16 03:45 08/26/16 02:50 White Blood Count 9.0 x10^3/uL (4.0-11.0) 10.3 x10^3/uL (4.0-11.0) Red Blood Count 3.83 x10^6/uL (3.50-5.40) 3.87 x10^6/uL (3.50-5.40) Hemoglobin 11.7 g/dL (12.0-15.5) 12.0 g/dL (12.0-15.5) Hematocrit 35.4 % (36.0-47.0) 35.6 % (36.0-47.0) Mean Corpuscular Volume 93 fL (79-100) 92 fL (79-100) Mean Corpuscular Hemoglobin 31 pg (25-35) 31 pg (25-35) Mean Corpuscular Hemoglobin Concent 33 g/dL (31-37) 34 g/dL (31-37) Red Cell Distribution Width 13.6 % (11.5-14.5) 13.7 % (11.5-14.5) Platelet Count 245 x10^3/uL (140-400) 256 x10^3/uL (140-400) Neutrophils (%) (Auto) 57 % (31-73) 60 % (31-73) Lymphocytes (%) (Auto) 29 % (24-48) 28 % (24-48) Monocytes (%) (Auto) 7 % (0-9) 7 % (0-9) Eosinophils (%) (Auto) 7 % (0-3) 4 % (0-3) Basophils (%) (Auto) 0 % (0-3) 0 % (0-3) Neutrophils # (Auto) 5.2 x10^3uL (1.8-7.7) 6.2 x10^3uL (1.8-7.7) Lymphocytes # (Auto) 2.7 x10^3/uL (1.0-4.8) 2.9 x10^3/uL (1.0-4.8) Monocytes # (Auto) 0.6 x10^3/uL (0.0-1.1) 0.8 x10^3/uL (0.0-1.1) Eosinophils # (Auto) 0.6 x10^3/uL (0.0-0.7) 0.4 x10^3/uL (0.0-0.7) Basophils # (Auto) 0.0 x10^3/uL (0.0-0.2) 0.0 x10^3/uL (0.0-0.2) Sodium Level 137 mmol/L (136-145) 137 mmol/L (136-145) Potassium Level 3.8 mmol/L (3.5-5.1) 3.9 mmol/L (3.5-5.1) Chloride Level 99 mmol/L (98-107) 98 mmol/L (98-107) Carbon Dioxide Level 31 mmol/L (21-32) 32 mmol/L (21-32) Anion Gap 7 (6-14) 7 (6-14) Blood Urea Nitrogen 10 mg/dL (7-20) 11 mg/dL (7-20) Creatinine 0.5 mg/dL (0.6-1.0) 0.6 mg/dL (0.6-1.0) Estimated GFR (Cockcroft-Gault) 116.4 94.3 Glucose Level 106 mg/dL (70-99) 109 mg/dL (70-99) Calcium Level 8.4 mg/dL (8.5-10.1) 8.9 mg/dL (8.5-10.1) Laboratory Tests Test 08/26/16 02:50 White Blood Count 10.3 x10^3/uL (4.0-11.0) Red Blood Count 3.87 x10^6/uL (3.50-5.40) Hemoglobin 12.0 g/dL (12.0-15.5) Hematocrit 35.6 % (36.0-47.0) Mean Corpuscular Volume 92 fL (79-100) Mean Corpuscular Hemoglobin 31 pg (25-35) Mean Corpuscular Hemoglobin Concent 34 g/dL (31-37) Red Cell Distribution Width 13.7 % (11.5-14.5) Platelet Count 256 x10^3/uL (140-400) Neutrophils (%) (Auto) 60 % (31-73) Lymphocytes (%) (Auto) 28 % (24-48) Monocytes (%) (Auto) 7 % (0-9) Eosinophils (%) (Auto) 4 % (0-3) Basophils (%) (Auto) 0 % (0-3) Neutrophils # (Auto) 6.2 x10^3uL (1.8-7.7) Lymphocytes # (Auto) 2.9 x10^3/uL (1.0-4.8) Monocytes # (Auto) 0.8 x10^3/uL (0.0-1.1) Eosinophils # (Auto) 0.4 x10^3/uL (0.0-0.7) Basophils # (Auto) 0.0 x10^3/uL (0.0-0.2) Sodium Level 137 mmol/L (136-145) Potassium Level 3.9 mmol/L (3.5-5.1) Chloride Level 98 mmol/L (98-107) Carbon Dioxide Level 32 mmol/L (21-32) Anion Gap 7 (6-14) Blood Urea Nitrogen 11 mg/dL (7-20) Creatinine 0.6 mg/dL (0.6-1.0) Estimated GFR (Cockcroft-Gault) 94.3 Glucose Level 109 mg/dL (70-99) Calcium Level 8.9 mg/dL (8.5-10.1) Problem List Problems Medical Problems: (1) Right lower quadrant abdominal pain Status: Acute Problems: HORACIO MALCOLM MD Aug 26, 2016 10:26 am
[2016-08-26] MEDS ORDERED: 0.9 % SODIUM CHLORIDE 10 ML DISP.SYRIN. IV PRN (11:30)
[2016-08-26] MEDS ORDERED: ENOXAPARIN 40 MG/0.4 ML SYRINGE. SQ SCH (11:30)
--- NOTE | 2016-08-26 11:36 | PDOC ---
BRIEF OPERATIVE NOTE Date: Aug 26, 2016 Pre-Op Diagnosis Right inguinal hernia with pain Post-Op Diagnosis same Procedure Performed Right inguinal hernia repair with mesh Surgeon Boom Malcolm Anesthesia Type: General, Local Blood Loss 20 Specimens Obtained hernia sac Findings right inguinal hernia, no viscera Complications none OPerative Note After obtaining informed consent, patient was taken to the operating room and induced under general anesthetic. Patient was prepped and draped in the usual fashion over the right groin area. Transverse incision was made using cautery. Subcutaneous tissue divided using cautery. The abdominal wall/fascia was explored superiorly, as patient's pain was noted in this area. No abnormal findings were noted, except for previous scarring in the area. Below the inguinal canal, there area to be significant inflammatory fat, but no femoral hernia. This was excised. The external oblique was opened in the direction of it's fibers. Inflammatory fat was found in the canal. This was excised and included with the specimen. The hernia sac was identified, dissected down to the floor. The hernia sac was opened. There was no contained viscera. No obvious pathology was identified by palpation. A high ligation was performed with 3-0 vicryl. Hernia sac was sent with specimen. A mesh plug was placed in the defect and secured using 0 vicryl. A mesh onlay was placed below the external oblique and this was closed with an 0 vicryl. Additional local was placed in the area. Skin incision was reapproximated with 3 0 vicryl and 4 0 monocryl. Sterile dressing was placed over the wound. Patient tolerated procedure well. There were no immediate complications. BOOM MALCOLM MD Aug 26, 2016 11:36 am
[2016-08-26] MEDS: fentaNYL PF VIAL 100 MCG/2 ML VIAL IV PRN ×3 (11:51→15:10)
--- NOTE | 2016-08-26 12:33 | PDOC ---
Objective: Objective: Out for surgery. Vital Signs: Vital Signs Date Time Temp Pulse Resp B/P (MAP) Pulse Ox O2 Delivery O2 Flow Rate FiO2 08/26/16 12:26 Nasal Cannula 2 08/26/16 12:15 98.5 89 20 145/71 94 98.5 Labs: Laboratory Tests Test 08/26/16 02:50 White Blood Count 10.3 x10^3/uL Red Blood Count 3.87 x10^6/uL Hemoglobin 12.0 g/dL Hematocrit 35.6 % Mean Corpuscular Volume 92 fL Mean Corpuscular Hemoglobin 31 pg Mean Corpuscular Hemoglobin Concent 34 g/dL Red Cell Distribution Width 13.7 % Platelet Count 256 x10^3/uL Neutrophils (%) (Auto) 60 % Lymphocytes (%) (Auto) 28 % Monocytes (%) (Auto) 7 % Eosinophils (%) (Auto) 4 % Basophils (%) (Auto) 0 % Neutrophils # (Auto) 6.2 x10^3uL Lymphocytes # (Auto) 2.9 x10^3/uL Monocytes # (Auto) 0.8 x10^3/uL Eosinophils # (Auto) 0.4 x10^3/uL Basophils # (Auto) 0.0 x10^3/uL Sodium Level 137 mmol/L Potassium Level 3.9 mmol/L Chloride Level 98 mmol/L Carbon Dioxide Level 32 mmol/L Anion Gap 7 Blood Urea Nitrogen 11 mg/dL Creatinine 0.6 mg/dL Estimated GFR (Cockcroft-Gault) 94.3 Glucose Level 109 mg/dL Calcium Level 8.9 mg/dL PE: no exam A/P: RLQ pain s/p RIH repair w/ mesh 08/26/16 -- Will follow post-op. LA NENA CORDOBA Aug 26, 2016 12:33
[2016-08-26] MEDS: LOSARTAN POTASSIUM 50 MG TABLET. PO SCH (13:40)
[2016-08-26] MEDS: ESCITALOPRAM 10 MG TABLET. PO SCH (13:40)
[2016-08-26] MEDS: hydroCHLOROthiazide 12.5 MG CAPSULE PO SCH (13:40)
[2016-08-26] MEDS: FLUTICASONE 50MCG/NASAL SPRAY 16GM BOTTLE. NS SCH (13:42)
[2016-08-26] MEDS: ENOXAPARIN 30 MG/0.3 ML SYRINGE. SQ SCH (13:43)
[2016-08-26] MEDS: ONDANSETRON PF 4 MG/2 ML VIAL. IV PRN ×2 (13:54→21:05)
--- NOTE | 2016-08-26 15:12 | PDOC ---
PROGRESS NOTES Chief Complaint Chief Complaint 1. RLQ abd pain 2. RIH 3. HTN 4. GERD 5. HLP 6. Asthma 7. PAD 8. CAD 9. Chronic lymphedema 10. Anxiety 11. Depression 12. OA History of Present Illness History of Present Illness seen post-op in room complained of pain and nausea discussed with her son, Eric, 2 other family members in room to assist gen surg following Vitals Vitals Vital Signs Date Time Temp Pulse Resp B/P (MAP) Pulse Ox O2 Delivery O2 Flow Rate FiO2 08/26/16 15:10 Nasal Cannula 2.0 08/26/16 14:15 97.7 102 18 186/81 (116) 96 97.7 Physical Exam General: Alert, Oriented X3, Cooperative, No acute distress Heart: Regular rate, Normal S1, Normal S2 Lungs: Clear Abdomen: Soft, Other (tender RLQ) Extremities: No clubbing, No cyanosis Skin: No rashes, No breakdown, No significant lesion Labs LABS Laboratory Tests Test 08/26/16 02:50 White Blood Count 10.3 x10^3/uL (4.0-11.0) Red Blood Count 3.87 x10^6/uL (3.50-5.40) Hemoglobin 12.0 g/dL (12.0-15.5) Hematocrit 35.6 % (36.0-47.0) Mean Corpuscular Volume 92 fL (79-100) Mean Corpuscular Hemoglobin 31 pg (25-35) Mean Corpuscular Hemoglobin Concent 34 g/dL (31-37) Red Cell Distribution Width 13.7 % (11.5-14.5) Platelet Count 256 x10^3/uL (140-400) Neutrophils (%) (Auto) 60 % (31-73) Lymphocytes (%) (Auto) 28 % (24-48) Monocytes (%) (Auto) 7 % (0-9) Eosinophils (%) (Auto) 4 % (0-3) Basophils (%) (Auto) 0 % (0-3) Neutrophils # (Auto) 6.2 x10^3uL (1.8-7.7) Lymphocytes # (Auto) 2.9 x10^3/uL (1.0-4.8) Monocytes # (Auto) 0.8 x10^3/uL (0.0-1.1) Eosinophils # (Auto) 0.4 x10^3/uL (0.0-0.7) Basophils # (Auto) 0.0 x10^3/uL (0.0-0.2) Sodium Level 137 mmol/L (136-145) Potassium Level 3.9 mmol/L (3.5-5.1) Chloride Level 98 mmol/L (98-107) Carbon Dioxide Level 32 mmol/L (21-32) Anion Gap 7 (6-14) Blood Urea Nitrogen 11 mg/dL (7-20) Creatinine 0.6 mg/dL (0.6-1.0) Estimated GFR (Cockcroft-Gault) 94.3 Glucose Level 109 mg/dL (70-99) Calcium Level 8.9 mg/dL (8.5-10.1) Assessment and Plan Assessmemt and Plan symptoms management and pain control today PT and OT for placement tomorrow Problems Medical Problems: (1) Right lower quadrant abdominal pain Status: Acute Problems: Comment Review of Relevant I have reviewed the following items delaney (where applicable) has been applied. Labs Laboratory Tests Test 08/25/16 03:45 08/26/16 02:50 White Blood Count 9.0 x10^3/uL (4.0-11.0) 10.3 x10^3/uL (4.0-11.0) Red Blood Count 3.83 x10^6/uL (3.50-5.40) 3.87 x10^6/uL (3.50-5.40) Hemoglobin 11.7 g/dL (12.0-15.5) 12.0 g/dL (12.0-15.5) Hematocrit 35.4 % (36.0-47.0) 35.6 % (36.0-47.0) Mean Corpuscular Volume 93 fL (79-100) 92 fL (79-100) Mean Corpuscular Hemoglobin 31 pg (25-35) 31 pg (25-35) Mean Corpuscular Hemoglobin Concent 33 g/dL (31-37) 34 g/dL (31-37) Red Cell Distribution Width 13.6 % (11.5-14.5) 13.7 % (11.5-14.5) Platelet Count 245 x10^3/uL (140-400) 256 x10^3/uL (140-400) Neutrophils (%) (Auto) 57 % (31-73) 60 % (31-73) Lymphocytes (%) (Auto) 29 % (24-48) 28 % (24-48) Monocytes (%) (Auto) 7 % (0-9) 7 % (0-9) Eosinophils (%) (Auto) 7 % (0-3) 4 % (0-3) Basophils (%) (Auto) 0 % (0-3) 0 % (0-3) Neutrophils # (Auto) 5.2 x10^3uL (1.8-7.7) 6.2 x10^3uL (1.8-7.7) Lymphocytes # (Auto) 2.7 x10^3/uL (1.0-4.8) 2.9 x10^3/uL (1.0-4.8) Monocytes # (Auto) 0.6 x10^3/uL (0.0-1.1) 0.8 x10^3/uL (0.0-1.1) Eosinophils # (Auto) 0.6 x10^3/uL (0.0-0.7) 0.4 x10^3/uL (0.0-0.7) Basophils # (Auto) 0.0 x10^3/uL (0.0-0.2) 0.0 x10^3/uL (0.0-0.2) Sodium Level 137 mmol/L (136-145) 137 mmol/L (136-145) Potassium Level 3.8 mmol/L (3.5-5.1) 3.9 mmol/L (3.5-5.1) Chloride Level 99 mmol/L (98-107) 98 mmol/L (98-107) Carbon Dioxide Level 31 mmol/L (21-32) 32 mmol/L (21-32) Anion Gap 7 (6-14) 7 (6-14) Blood Urea Nitrogen 10 mg/dL (7-20) 11 mg/dL (7-20) Creatinine 0.5 mg/dL (0.6-1.0) 0.6 mg/dL (0.6-1.0) Estimated GFR (Cockcroft-Gault) 116.4 94.3 Glucose Level 106 mg/dL (70-99) 109 mg/dL (70-99) Calcium Level 8.4 mg/dL (8.5-10.1) 8.9 mg/dL (8.5-10.1) Laboratory Tests Test 08/26/16 02:50 White Blood Count 10.3 x10^3/uL (4.0-11.0) Red Blood Count 3.87 x10^6/uL (3.50-5.40) Hemoglobin 12.0 g/dL (12.0-15.5) Hematocrit 35.6 % (36.0-47.0) Mean Corpuscular Volume 92 fL (79-100) Mean Corpuscular Hemoglobin 31 pg (25-35) Mean Corpuscular Hemoglobin Concent 34 g/dL (31-37) Red Cell Distribution Width 13.7 % (11.5-14.5) Platelet Count 256 x10^3/uL (140-400) Neutrophils (%) (Auto) 60 % (31-73) Lymphocytes (%) (Auto) 28 % (24-48) Monocytes (%) (Auto) 7 % (0-9) Eosinophils (%) (Auto) 4 % (0-3) Basophils (%) (Auto) 0 % (0-3) Neutrophils # (Auto) 6.2 x10^3uL (1.8-7.7) Lymphocytes # (Auto) 2.9 x10^3/uL (1.0-4.8) Monocytes # (Auto) 0.8 x10^3/uL (0.0-1.1) Eosinophils # (Auto) 0.4 x10^3/uL (0.0-0.7) Basophils # (Auto) 0.0 x10^3/uL (0.0-0.2) Sodium Level 137 mmol/L (136-145) Potassium Level 3.9 mmol/L (3.5-5.1) Chloride Level 98 mmol/L (98-107) Carbon Dioxide Level 32 mmol/L (21-32) Anion Gap 7 (6-14) Blood Urea Nitrogen 11 mg/dL (7-20) Creatinine 0.6 mg/dL (0.6-1.0) Estimated GFR (Cockcroft-Gault) 94.3 Glucose Level 109 mg/dL (70-99) Calcium Level 8.9 mg/dL (8.5-10.1) Microbiology 08/20/16 Urine Culture - Final, Complete 08/20/16 Urine Culture Result 1 (KARLOS) - Final, Complete Medications Current Medications Hydromorphone HCl (Dilaudid) 0.5 mg PRN Q1HR PRN IV SEVERE PAIN Last administered on 08/25/16 02:13; Start 08/20/16 at 10:30; Stop 08/25/16 at 02:14 ; Status DC Ondansetron HCl (Zofran) 4 mg 1X ONCE IV Last administered on 08/20/16 10:42; Start 08/20/16 at 10:30; Stop 08/20/16 at 10:33; Status DC Sodium Chloride 500 ml @ 500 mls/hr 1X ONCE IV Last administered on 08/20/16 10:41; Start 08/20/16 at 10:30; Stop 08/20/16 at 11:29; Status DC Iohexol (Omnipaque 300 Mg/ml) 75 ml 1X ONCE IV Last administered on 08/20/16 11:36; Start 08/20/16 at 11:15; Stop 08/20/16 at 11:25; Status DC Info (Do NOT chart on this entry -- for MONITORING) 1 each PRN DAILY PRN MC SEE COMMENTS; Start 08/20/16 at 11:30; Stop 08/21/16 at 12:44; Status DC Hydromorphone HCl (Dilaudid) 0.5 mg 1X ONCE IVP ; Start 08/20/16 at 11:45; Stop 08/20/16 at 11:46; Status DC Ondansetron HCl (Zofran) 4 mg PRN Q8HRS PRN IV NAUSEA/VOMITING; Start 08/20/16 at 13:15; Stop 08/21/16 at 12:47; Status DC Morphine Sulfate 2 mg PRN Q2HR PRN IV PAIN; Start 08/20/16 at 13:15; Stop at 13:14; Status DC Sodium Chloride 1,000 ml @ 125 mls/hr Q8H IV Last administered on 08/20/16 16: 00; Start 08/20/16 at 13:09; Stop 08/20/16 at 19:25; Status DC Polyethylene Glycol (miraLAX PACKET) 17 gm DAILY PO Last administered on 08:43; Start 08/20/16 at 15:15 Pantoprazole Sodium (Protonix) 40 mg DAILYAC PO Last administered on 08/26/16 05:59; Start 08/20/16 at 16:30 Potassium Chloride/Sodium Chloride 1,000 ml @ 75 mls/hr 1X ONCE IV Last administered on 08/20/16 20:57; Start 08/20/16 at 20:00; Stop 08/21/16 at 09:19; Status DC Sodium Chloride 1,000 ml @ 75 mls/hr [id number] IV Last administered on 08/21/16 12:08; Start 08/20/16 at 19:30; Stop 08/21/16 at 13:23; Status DC Acetaminophen (Tylenol) 325 mg PRN Q6HRS PRN PO MILD PAIN / TEMP Last administered on 08/21/16 20:43; Start 08/20/16 at 19:30 Hydralazine HCl (Apresoline) 10 mg PRN Q4HRS PRN IVP ELEVATED BP, SEE COMMENTS Last administered on 08/26/16 14:13; Start 08/20/16 at 19:30 Ondansetron HCl (Zofran) 4 mg PRN Q8HRS PRN IV NAUSEA/VOMITING Last administered on 08/26/16 13:54; Start 08/20/16 at 19:30 Albuterol Sulfate (Ventolin Neb Soln) 2.5 mg PRN Q4HRS PRN NEB SHORTNESS OF BREATH; Start 08/20/16 at 19:30 Amlodipine Besylate (Norvasc) 7.5 mg HS PO Last administered on 08/25/16 20:56 ; Start 08/20/16 at 21:00 Atorvastatin Calcium (Lipitor) 20 mg QHS PO Last administered on 08/25/16 20: 56; Start 08/20/16 at 21:00 Benzonatate (Tessalon Perle) 200 mg TID PRN PO COUGH Last administered on 20:55; Start 08/20/16 at 19:45 Clonidine HCl (Catapres) 0.1 mg HS PO Last administered on 08/25/16 20:58; Start 08/20/16 at 21:00 Clopidogrel Bisulfate (Plavix) 75 mg HS PO Last administered on 08/25/16 20:55 ; Start 08/20/16 at 21:00 Diazepam (Valium) 2.5 mg BID PO Last administered on 08/25/16 20:55; Start 08/20/16 at 21:00 Latanoprost (Xalatan) 1 drop QHS OU Last administered on 08/25/16 20:56; Start 08/20/16 at 21:00 Losartan Potassium (Cozaar) 50 mg DAILY PO Last administered on 08/26/16 13:40 ; Start 08/21/16 at 09:00 Montelukast Sodium (Singulair) 10 mg DAILY PO Last administered on 08/25/16 08 :45; Start 08/21/16 at 09:00 Tramadol HCl (Ultram) 50 mg Q8HRS PRN PO MILD PAIN Last administered on 02:11; Start 08/20/16 at 19:45 Non-Formulary Medication 108 mcg Q4HRS PRN INH SHORTNESS OF BREATH; Start at 19:45; Status UNV Escitalopram Oxalate (Lexapro) 10 mg DAILY PO Last administered on 08/26/16 13 :40; Start 08/21/16 at 09:00 Fluticasone Propionate (Flonase) 2 spray DAILY NS Last administered on 13:42; Start 08/21/16 at 09:00 Non-Formulary Medication 1 puff BID IH ; Start 08/20/16 at 21:00; Status UNV Hydrochlorothiazide (Microzide) 12.5 mg DAILY PO Last administered on 13:40; Start 08/21/16 at 09:00 Albuterol/ Ipratropium (Duoneb) 3 ml RTQID NEB Last administered on 08/26/16 15:02; Start 08/20/16 at 20:00 Budesonide (Pulmicort) 0.5 mg RTBID NEB Last administered on 08/26/16 08:12; Start 08/20/16 at 20:00 Iohexol (Omnipaque 350 Mg/ml) 90 ml 1X ONCE IV Last administered on 7/6/17at 07:00; Start 08/21/16 at 07:00; Stop 08/21/16 at 07:01; Status DC Info (Do NOT chart on this entry -- for MONITORING) 1 each PRN DAILY PRN MC SEE COMMENTS; Start 08/21/16 at 06:30; Stop 08/23/16 at 06:29; Status DC Potassium Chloride (Klor-Con) 40 meq 1X ONCE PO Last administered on 08/21/16 12:06; Start 08/21/16 at 08:00; Stop 08/21/16 at 08:02; Status DC Enoxaparin Sodium (Lovenox 40mg Syringe) 40 mg Q24H SQ Last administered on 08/21 12:09; Start 08/21/16 at 08:00; Stop 08/21/16 at 12:45; Status DC Enoxaparin Sodium (Lovenox 30mg Syringe) 30 mg DAILY SQ Last administered on 13:43; Start 08/22/16 at 09:00 Oxycodone/ Acetaminophen (Percocet 5/325) 1 tab PRN Q4HRS PRN PO SEVERE PAIN Last administered on 08/25/16 20:55; Start 08/25/16 at 12:30 Cefazolin Sodium/ Dextrose 50 ml @ 100 mls/hr 1X PREOP ONCE IV Last administered on 08/25/16 10:37; Start 08/25/16 at 18:00; Stop 08/25/16 at 18:29 ; Status DC Ondansetron HCl (Zofran) 4 mg PRN Q6HRS PRN IV NAUSEA/VOMITING; Start 08/26/16 at 08:45; Stop 08/26/16 at 18:00 Fentanyl Citrate (Fentanyl 2ml Vial) 25 mcg PRN Q5MIN PRN IV MILD PAIN; Start 08/26/16 at 08:45; Stop 08/26/16 at 18:00 Fentanyl Citrate (Fentanyl 2ml Vial) 50 mcg PRN Q5MIN PRN IV MODERATE PAIN Last administered on 08/26/16 15:10; Start 08/26/16 at 08:45; Stop 08/26/16 at 18:00 Morphine Sulfate 1 mg PRN Q10MIN PRN IV SEVERE PAIN; Start 08/26/16 at 08:45; Stop 08/26/16 at 18:00 Ringer's Solution 1,000 ml @ 30 mls/hr Q24H IV ; Start 08/26/16 at 08:44; Stop 08/26/16 at 20:43 Lidocaine HCl 2 ml PRN 1X PRN ID PRIOR TO IV START; Start 08/26/16 at 08:45; Stop 08/26/16 at 18:00 Hydromorphone HCl (Dilaudid) 0.5 mg PRN Q10MIN PRN IV SEV PAIN, Second choice; Start 08/26/16 at 08:45; Stop 08/26/16 at 18:00 Prochlorperazine Edisylate (Compazine) 5 mg PACU PRN PRN IV NAUSEA, MRX1; Start 08/26/16 at 08:45; Stop 08/26/16 at 18:00 Dexamethasone Sodium Phosphate (Decadron) 20 mg STK-MED ONCE .ROUTE ; Start 01/02 at 09:44; Stop 08/26/16 at 09:45; Status DC Ondansetron HCl (Zofran) 4 mg STK-MED ONCE .ROUTE ; Start 08/26/16 at 09:44; Stop 08/26/16 at 09:45; Status DC Propofol 20 ml @ As Directed STK-MED ONCE IV ; Start 08/26/16 at 09:44; Stop 01/02 at 09:45; Status DC Lidocaine HCl (Lidocaine Pf 2% Vial) 5 ml STK-MED ONCE .ROUTE ; Start 08/26/16 at 09:44; Stop 08/26/16 at 09:45; Status DC Fentanyl Citrate (Fentanyl 2ml Vial) 100 mcg STK-MED ONCE .ROUTE ; Start at 09:45; Stop 08/26/16 at 09:46; Status DC Cefazolin Sodium/ Dextrose 50 ml @ 100 mls/hr 1X PREOP ONCE IV ; Start at 10:15; Stop 08/26/16 at 10:44; Status DC Bupivacaine HCl/ Epinephrine Bitart (Marcaine-Epi 0.5%-[id number]) 50 ml STK-MED ONCE .ROUTE Last administered on 08/26/16t 10:45; Start 08/26/16 at 10:23; Stop 08/26/16 at 10:24; Status DC Enoxaparin Sodium (Lovenox 40mg Syringe) 40 mg Q24H SQ ; Start 08/26/16 at 11:30 ; Status UNV Sodium Chloride (Normal Saline Flush) 3 ml QSHIFT PRN IV AFTER MEDS AND BLOOD DRAWS; Start 08/26/16 at 11:30 Ringer's Solution 1,000 ml @ 100 mls/hr Q10H IV ; Start 08/26/16 at 11:24 Acetaminophen/ Hydrocodone Bitart (Lortab 5/325) 1 tab PRN Q4HRS PRN PO MODERATE PAIN; Start 08/26/16 at 11:30 Docusate Sodium (Colace) 100 mg BID PO ; Start 08/26/16 at 21:00 Fentanyl Citrate (Fentanyl 2ml Vial) 50 mcg PRN Q2HR PRN IV PAIN; Start at 14:45 Active Scripts Active Keflex (Cephalexin) 250 Mg Capsule 1 Cap PO TID Reported Betimol (Timolol) 5 Ml Drops 5 Ml OP Xalatan (Latanoprost) 2.5 Ml Drops 1 Drop EACHEYE QHS Escitalopram Oxalate 10 Mg Tablet 1 Tab PO DAILY Tramadol Hcl 50 Mg Tablet 1 Tab PO Q8HRS PRN Advair 250-50 Diskus (Fluticasone/Salmeterol) 1 Each Disk.w.dev 1 Puff IH BID Proair Hfa Inhaler (Albuterol Sulfate) 8.5 Gm Hfa.aer.ad 108 Mcg INH Q4HRS PRN Losartan Potassium 50 Mg Tablet 50 Mg PO DAILY Amlodipine Besylate 5 Mg Tablet 7.5 Mg PO HS Diazepam 5 Mg Tablet 2.5 Mg PO BID Hydrochlorothiazide Tablet (Hydrochlorothiazide) 12.5 Mg Tablet 1 Tab PO DAILY Atorvastatin Calcium 20 Mg Tablet 20 Mg PO DAILY Fluticasone Propionate 15.8 Ml [place].susp 50 Mcg NS DAILY Benzonatate 100 Mg Capsule 200 Mg PO TID PRN Plavix (Clopidogrel Bisulfate) 75 Mg Tablet 75 Mg PO HS 30 Days Montelukast Sodium Tablet (Montelukast Sodium) 10 Mg Tablet 10 Mg PO DAILY Clonidine Hcl 0.1 Mg Tablet 0.1 Mg PO HS Vitals/I & O Vital Sign - Last 24 Hours 08/25/16 08/25/16 08/25/16 08/25/16 16:17 17:16 19:00 19:20 Temp 97.7 97.7 Pulse 93 Resp 20 B/P (MAP) 116/67 (83) Pulse Ox 96 98 O2 Delivery Room Air Room Air Room Air Room Air 08/25/16 08/25/16 08/25/16 08/25/16 20:00 20:55 20:56 20:58 Pulse 87 87 Resp 18 B/P (MAP) 124/63 124/63 Pulse Ox 98 O2 Delivery Room Air Room Air 08/25/16 08/25/16 08/26/16 08/26/16 21:55 23:02 02:11 03:00 Temp 96.8 97.0 96.8 97.0 Pulse 86 80 Resp 18 18 18 B/P (MAP) 124/61 (82) 121/57 (78) Pulse Ox 98 98 98 97 O2 Delivery Room Air Room Air Room Air Room Air 08/26/16 08/26/16 08/26/16 08/26/16 07:00 08:00 08:12 09:55 Temp 97.9 97.6 97.9 97.6 Pulse 100 85 Resp 18 20 B/P (MAP) 141/69 (93) 152/71 Pulse Ox 96 96 94 O2 Delivery Room Air Room Air Room Air Room Air 08/26/16 08/26/16 08/26/16 08/26/16 11:31 11:31 11:46 11:51 Temp 98.0 98.0 Pulse 70 80 Resp 20 20 B/P (MAP) 149/62 175/74 Pulse Ox 95 91 O2 Delivery Mask Simple Mask Simple Mask Simple Mask O2 Flow Rate 10 10 10 10.0 08/26/16 08/26/16 08/26/16 08/26/16 12:00 12:11 12:15 12:26 Temp 98.5 98.5 Pulse 89 89 Resp 20 20 20 B/P (MAP) 162/72 145/71 Pulse Ox 95 95 94 O2 Delivery Simple Mask Simple Mask Nasal Cannula Nasal Cannula O2 Flow Rate 10 2.0 2 2 08/26/16 08/26/16 08/26/16 08/26/16 12:30 13:00 13:15 13:30 Temp 98.5 97.5 97.5 97.5 98.5 97.5 97.5 97.5 Pulse 88 87 90 89 Resp 20 18 18 18 B/P (MAP) 145/71 155/55 (88) 144/63 (90) 142/107 (119) Pulse Ox 94 92 92 92 O2 Delivery Nasal Cannula Room Air Room Air Room Air O2 Flow Rate 2 08/26/16 08/26/16 08/26/16 08/26/16 13:40 13:45 14:13 14:15 Temp 97.5 97.7 97.5 97.7 Pulse 87 95 86 102 Resp 18 18 B/P (MAP) 142/107 164/81 (108) 186/81 186/81 (116) Pulse Ox 93 96 O2 Delivery Room Air Room Air 08/26/16 08/26/16 15:03 15:10 O2 Delivery Nasal Cannula Nasal Cannula O2 Flow Rate 2.0 2.0 Intake and Output 08/25/16 08/25/16 08/26/16 15:00 23:00 07:00 Intake Total 480 ml 240 ml 0 ml Balance 480 ml 240 ml 0 ml Nutrition Consultation Dietary Evaluation: Comments: diet adv as tolerated Expected Outcomes/Goals: to meet > 75% est nutr needs Malnutrition Findings: Body Fat Depletion (Non Severe: Mild Depletion Weight Status: Appropriate Fluid Accumulation (Non-Severe: Mild depletion REENA SHIRLEY MD Aug 26, 2016 15:12
[2016-08-26] MEDS: IV RINGERS,LACTATED 1000ML 1,000 ML IV SCH (16:24)
[2016-08-26] MEDS: CLOPIDOGREL BISULFATE 75 MG TABLET PO SCH (21:00)
[2016-08-26] MEDS: cloNIDine HCL 0.1 MG TABLET PO SCH (21:10)
[2016-08-26] MEDS: ATORVASTATIN CALCIUM 20 MG TABLET PO SCH (21:10)
[2016-08-26] MEDS: DOCUSATE SODIUM 100 MG CAPSULE. PO SCH (21:11)
[2016-08-26] MEDS: amLODIPine BESYLATE 5 MG TABLET PO SCH (21:13)
[2016-08-26] MEDS: LATANOPROST 0.005% OPHTH SOLUTION 2.5ML BOTTLE. OU SCH (21:15)
[2016-08-27] MEDS: IV RINGERS,LACTATED 1000ML 1,000 ML IV SCH ×3 (01:49→15:07)
[2016-08-27 03:00] VITALS: BP 124/63
[2016-08-27 06:02] LABS: BASO % 0 % (0-3); EOS % 0 % (0-3); HEMATOCRIT 33.7 % (36.0-47.0); HEMOGLOBIN 11.5 g/dL (12.0-15.5); LYMPH # 1.9 x10^3/uL (1.0-4.8); LYMPH % 14 % (24-48); MEAN CORPUSCULAR HEMOGLOBIN 31 pg (25-35); MEAN CORPUSCULAR HGB CONC 34 g/dL (31-37); MEAN CORPUSCULAR VOLUME 90 fL (79-100); MONO % 6 % (0-9); NEUT % 80 % (31-73); PLATELET COUNT 268 x10^3/uL (140-400); RED BLOOD COUNT 3.74 x10^6/uL (3.50-5.40); RED CELL DISTRIBUTION WIDTH 13.7 % (11.5-14.5); WHITE BLOOD COUNT 13.3 x10^3/uL (4.0-11.0)
[2016-08-27 06:17] LABS: CALCIUM 8.1 mg/dL (8.5-10.1); CREATININE 0.5 mg/dL (0.6-1.0); GFR 116.4; POTASSIUM 3.7 mmol/L (3.5-5.1)
[2016-08-27 07:00] VITALS: BP 117/64
[2016-08-27] MEDS: IPRATRPIUM/ALBUTEROL 0.5/2.5MG 3 ML NEBU. NEB SCH ×4 (07:47→19:28)
[2016-08-27] MEDS: BUDESONIDE 0.5 MG/2 ML NEBU. NEB SCH ×2 (07:47→19:29)
[2016-08-27] MEDS: FLUTICASONE 50MCG/NASAL SPRAY 16GM BOTTLE. NS SCH (08:51)
[2016-08-27] MEDS: ESCITALOPRAM 10 MG TABLET. PO SCH (08:52)
[2016-08-27] MEDS: DOCUSATE SODIUM 100 MG CAPSULE. PO SCH ×2 (08:52→21:01)
[2016-08-27] MEDS: PANTOPRAZOLE 40 MG TABLET.DR. PO SCH (08:52)
[2016-08-27] MEDS: MONTELUKAST SODIUM 10 MG TABLET. PO SCH (08:52)
[2016-08-27] MEDS: LOSARTAN POTASSIUM 50 MG TABLET. PO SCH (08:53)
[2016-08-27] MEDS: hydroCHLOROthiazide 12.5 MG CAPSULE PO SCH (08:54)
[2016-08-27] MEDS: ENOXAPARIN 30 MG/0.3 ML SYRINGE. SQ SCH (08:55)
[2016-08-27] MEDS: POLYETHYLENE GLYCOL 3350 17 GM PACKET. PO SCH (08:55)
[2016-08-27] MEDS: diazePAM 5 MG TABLET PO SCH ×2 (08:55→21:01)
[2016-08-27 11:00] VITALS: BP 139/72
--- NOTE | 2016-08-27 11:40 | PDOC ---
PROGRESS NOTES Chief Complaint Chief Complaint 1. RLQ abd pain, now POD #1 hernia repair, 2. R inguinal hernia, now repaired, 3. HTN 4. GERD 5. HLP 6. Asthma 7. PAD 8. CAD 9. Chronic lymphedema 10. Anxiety 11. Depression 12. OA 13. weakeness and debility History of Present Illness History of Present Illness pain much better today some po intake OOB to chair likely need SNU soon gen surg f/u Vitals Vitals Vital Signs Date Time Temp Pulse Resp B/P (MAP) Pulse Ox O2 Delivery O2 Flow Rate FiO2 08/27/16 08:53 87 117/64 08/27/16 07:45 95 Nasal Cannula 2.0 08/27/16 07:00 98.3 18 98.3 Physical Exam General: Alert, Oriented X3, Cooperative, No acute distress Heart: Regular rate, Normal S1, Normal S2 Lungs: Clear Abdomen: Soft, Other (tender RLQ) Extremities: No clubbing, No cyanosis Skin: No rashes, No breakdown, No significant lesion Labs LABS Laboratory Tests Test 08/27/16 04:55 White Blood Count 13.3 x10^3/uL (4.0-11.0) Red Blood Count 3.74 x10^6/uL (3.50-5.40) Hemoglobin 11.5 g/dL (12.0-15.5) Hematocrit 33.7 % (36.0-47.0) Mean Corpuscular Volume 90 fL (79-100) Mean Corpuscular Hemoglobin 31 pg (25-35) Mean Corpuscular Hemoglobin Concent 34 g/dL (31-37) Red Cell Distribution Width 13.7 % (11.5-14.5) Platelet Count 268 x10^3/uL (140-400) Neutrophils (%) (Auto) 80 % (31-73) Lymphocytes (%) (Auto) 14 % (24-48) Monocytes (%) (Auto) 6 % (0-9) Eosinophils (%) (Auto) 0 % (0-3) Basophils (%) (Auto) 0 % (0-3) Neutrophils # (Auto) 10.6 x10^3uL (1.8-7.7) Lymphocytes # (Auto) 1.9 x10^3/uL (1.0-4.8) Monocytes # (Auto) 0.8 x10^3/uL (0.0-1.1) Eosinophils # (Auto) 0.0 x10^3/uL (0.0-0.7) Basophils # (Auto) 0.0 x10^3/uL (0.0-0.2) Sodium Level 137 mmol/L (136-145) Potassium Level 3.7 mmol/L (3.5-5.1) Chloride Level 100 mmol/L (98-107) Carbon Dioxide Level 31 mmol/L (21-32) Anion Gap 6 (6-14) Blood Urea Nitrogen 13 mg/dL (7-20) Creatinine 0.5 mg/dL (0.6-1.0) Estimated GFR (Cockcroft-Gault) 116.4 Glucose Level 135 mg/dL (70-99) Calcium Level 8.1 mg/dL (8.5-10.1) Assessment and Plan Assessmemt and Plan Problems Medical Problems: (1) Right lower quadrant abdominal pain Status: Acute Problems: Comment Review of Relevant I have reviewed the following items delaney (where applicable) has been applied. Labs Laboratory Tests Test 08/26/16 02:50 08/27/16 04:55 White Blood Count 10.3 x10^3/uL (4.0-11.0) 13.3 x10^3/uL (4.0-11.0) Red Blood Count 3.87 x10^6/uL (3.50-5.40) 3.74 x10^6/uL (3.50-5.40) Hemoglobin 12.0 g/dL (12.0-15.5) 11.5 g/dL (12.0-15.5) Hematocrit 35.6 % (36.0-47.0) 33.7 % (36.0-47.0) Mean Corpuscular Volume 92 fL (79-100) 90 fL (79-100) Mean Corpuscular Hemoglobin 31 pg (25-35) 31 pg (25-35) Mean Corpuscular Hemoglobin Concent 34 g/dL (31-37) 34 g/dL (31-37) Red Cell Distribution Width 13.7 % (11.5-14.5) 13.7 % (11.5-14.5) Platelet Count 256 x10^3/uL (140-400) 268 x10^3/uL (140-400) Neutrophils (%) (Auto) 60 % (31-73) 80 % (31-73) Lymphocytes (%) (Auto) 28 % (24-48) 14 % (24-48) Monocytes (%) (Auto) 7 % (0-9) 6 % (0-9) Eosinophils (%) (Auto) 4 % (0-3) 0 % (0-3) Basophils (%) (Auto) 0 % (0-3) 0 % (0-3) Neutrophils # (Auto) 6.2 x10^3uL (1.8-7.7) 10.6 x10^3uL (1.8-7.7) Lymphocytes # (Auto) 2.9 x10^3/uL (1.0-4.8) 1.9 x10^3/uL (1.0-4.8) Monocytes # (Auto) 0.8 x10^3/uL (0.0-1.1) 0.8 x10^3/uL (0.0-1.1) Eosinophils # (Auto) 0.4 x10^3/uL (0.0-0.7) 0.0 x10^3/uL (0.0-0.7) Basophils # (Auto) 0.0 x10^3/uL (0.0-0.2) 0.0 x10^3/uL (0.0-0.2) Sodium Level 137 mmol/L (136-145) 137 mmol/L (136-145) Potassium Level 3.9 mmol/L (3.5-5.1) 3.7 mmol/L (3.5-5.1) Chloride Level 98 mmol/L (98-107) 100 mmol/L (98-107) Carbon Dioxide Level 32 mmol/L (21-32) 31 mmol/L (21-32) Anion Gap 7 (6-14) 6 (6-14) Blood Urea Nitrogen 11 mg/dL (7-20) 13 mg/dL (7-20) Creatinine 0.6 mg/dL (0.6-1.0) 0.5 mg/dL (0.6-1.0) Estimated GFR (Cockcroft-Gault) 94.3 116.4 Glucose Level 109 mg/dL (70-99) 135 mg/dL (70-99) Calcium Level 8.9 mg/dL (8.5-10.1) 8.1 mg/dL (8.5-10.1) Laboratory Tests Test 08/27/16 04:55 White Blood Count 13.3 x10^3/uL (4.0-11.0) Red Blood Count 3.74 x10^6/uL (3.50-5.40) Hemoglobin 11.5 g/dL (12.0-15.5) Hematocrit 33.7 % (36.0-47.0) Mean Corpuscular Volume 90 fL (79-100) Mean Corpuscular Hemoglobin 31 pg (25-35) Mean Corpuscular Hemoglobin Concent 34 g/dL (31-37) Red Cell Distribution Width 13.7 % (11.5-14.5) Platelet Count 268 x10^3/uL (140-400) Neutrophils (%) (Auto) 80 % (31-73) Lymphocytes (%) (Auto) 14 % (24-48) Monocytes (%) (Auto) 6 % (0-9) Eosinophils (%) (Auto) 0 % (0-3) Basophils (%) (Auto) 0 % (0-3) Neutrophils # (Auto) 10.6 x10^3uL (1.8-7.7) Lymphocytes # (Auto) 1.9 x10^3/uL (1.0-4.8) Monocytes # (Auto) 0.8 x10^3/uL (0.0-1.1) Eosinophils # (Auto) 0.0 x10^3/uL (0.0-0.7) Basophils # (Auto) 0.0 x10^3/uL (0.0-0.2) Sodium Level 137 mmol/L (136-145) Potassium Level 3.7 mmol/L (3.5-5.1) Chloride Level 100 mmol/L (98-107) Carbon Dioxide Level 31 mmol/L (21-32) Anion Gap 6 (6-14) Blood Urea Nitrogen 13 mg/dL (7-20) Creatinine 0.5 mg/dL (0.6-1.0) Estimated GFR (Cockcroft-Gault) 116.4 Glucose Level 135 mg/dL (70-99) Calcium Level 8.1 mg/dL (8.5-10.1) Microbiology 08/20/16 Urine Culture - Final, Complete 08/20/16 Urine Culture Result 1 (KARLOS) - Final, Complete Medications Current Medications Hydromorphone HCl (Dilaudid) 0.5 mg PRN Q1HR PRN IV SEVERE PAIN Last administered on 08/25/16 02:13; Start 08/20/16 at 10:30; Stop 08/25/16 at 02:14 ; Status DC Ondansetron HCl (Zofran) 4 mg 1X ONCE IV Last administered on 08/20/16 10:42; Start 08/20/16 at 10:30; Stop 08/20/16 at 10:33; Status DC Sodium Chloride 500 ml @ 500 mls/hr 1X ONCE IV Last administered on 08/20/16 10:41; Start 08/20/16 at 10:30; Stop 08/20/16 at 11:29; Status DC Iohexol (Omnipaque 300 Mg/ml) 75 ml 1X ONCE IV Last administered on 08/20/16 11:36; Start 08/20/16 at 11:15; Stop 08/20/16 at 11:25; Status DC Info (Do NOT chart on this entry -- for MONITORING) 1 each PRN DAILY PRN MC SEE COMMENTS; Start 08/20/16 at 11:30; Stop 08/21/16 at 12:44; Status DC Hydromorphone HCl (Dilaudid) 0.5 mg 1X ONCE IVP ; Start 08/20/16 at 11:45; Stop 08/20/16 at 11:46; Status DC Ondansetron HCl (Zofran) 4 mg PRN Q8HRS PRN IV NAUSEA/VOMITING; Start 08/20/16 at 13:15; Stop 08/21/16 at 12:47; Status DC Morphine Sulfate 2 mg PRN Q2HR PRN IV PAIN; Start 08/20/16 at 13:15; Stop at 13:14; Status DC Sodium Chloride 1,000 ml @ 125 mls/hr Q8H IV Last administered on 08/20/16 16: 00; Start 08/20/16 at 13:09; Stop 08/20/16 at 19:25; Status DC Polyethylene Glycol (miraLAX PACKET) 17 gm DAILY PO Last administered on 08:55; Start 08/20/16 at 15:15 Pantoprazole Sodium (Protonix) 40 mg DAILYAC PO Last administered on 08/27/16 08:52; Start 08/20/16 at 16:30 Potassium Chloride/Sodium Chloride 1,000 ml @ 75 mls/hr 1X ONCE IV Last administered on 08/20/16 20:57; Start 08/20/16 at 20:00; Stop 08/21/16 at 09:19; Status DC Sodium Chloride 1,000 ml @ 75 mls/hr [id number] IV Last administered on 08/21/16 12:08; Start 08/20/16 at 19:30; Stop 08/21/16 at 13:23; Status DC Acetaminophen (Tylenol) 325 mg PRN Q6HRS PRN PO MILD PAIN / TEMP Last administered on 08/21/16 20:43; Start 08/20/16 at 19:30 Hydralazine HCl (Apresoline) 10 mg PRN Q4HRS PRN IVP ELEVATED BP, SEE COMMENTS Last administered on 08/26/16 14:13; Start 08/20/16 at 19:30 Ondansetron HCl (Zofran) 4 mg PRN Q8HRS PRN IV NAUSEA/VOMITING Last administered on 08/26/16 21:05; Start 08/20/16 at 19:30 Albuterol Sulfate (Ventolin Neb Soln) 2.5 mg PRN Q4HRS PRN NEB SHORTNESS OF BREATH; Start 08/20/16 at 19:30 Amlodipine Besylate (Norvasc) 7.5 mg HS PO Last administered on 08/26/16 21:13 ; Start 08/20/16 at 21:00 Atorvastatin Calcium (Lipitor) 20 mg QHS PO Last administered on 08/26/16 21: 10; Start 08/20/16 at 21:00 Benzonatate (Tessalon Perle) 200 mg TID PRN PO COUGH Last administered on 20:55; Start 08/20/16 at 19:45 Clonidine HCl (Catapres) 0.1 mg HS PO Last administered on 08/26/16 21:10; Start 08/20/16 at 21:00 Clopidogrel Bisulfate (Plavix) 75 mg HS PO Last administered on 08/25/16 20:55 ; Start 08/20/16 at 21:00 Diazepam (Valium) 2.5 mg BID PO Last administered on 08/27/16 08:55; Start 08/20/16 at 21:00 Latanoprost (Xalatan) 1 drop QHS OU Last administered on 08/26/16 21:15; Start 08/20/16 at 21:00 Losartan Potassium (Cozaar) 50 mg DAILY PO Last administered on 08/27/16 08:53 ; Start 08/21/16 at 09:00 Montelukast Sodium (Singulair) 10 mg DAILY PO Last administered on 08/27/16 08 :52; Start 08/21/16 at 09:00 Tramadol HCl (Ultram) 50 mg Q8HRS PRN PO MILD PAIN Last administered on 02:11; Start 08/20/16 at 19:45 Non-Formulary Medication 108 mcg Q4HRS PRN INH SHORTNESS OF BREATH; Start at 19:45; Status UNV Escitalopram Oxalate (Lexapro) 10 mg DAILY PO Last administered on 08/27/16 08 :52; Start 08/21/16 at 09:00 Fluticasone Propionate (Flonase) 2 spray DAILY NS Last administered on 08:51; Start 08/21/16 at 09:00 Non-Formulary Medication 1 puff BID IH ; Start 08/20/16 at 21:00; Status UNV Hydrochlorothiazide (Microzide) 12.5 mg DAILY PO Last administered on 08:54; Start 08/21/16 at 09:00 Albuterol/ Ipratropium (Duoneb) 3 ml RTQID NEB Last administered on 08/27/16 07:47; Start 08/20/16 at 20:00 Budesonide (Pulmicort) 0.5 mg RTBID NEB Last administered on 08/27/16 07:47; Start 08/20/16 at 20:00 Iohexol (Omnipaque 350 Mg/ml) 90 ml 1X ONCE IV Last administered on 08/21/16 07:00; Start 08/21/16 at 07:00; Stop 08/21/16 at 07:01; Status DC Info (Do NOT chart on this entry -- for MONITORING) 1 each PRN DAILY PRN MC SEE COMMENTS; Start 08/21/16 at 06:30; Stop 08/23/16 at 06:29; Status DC Potassium Chloride (Klor-Con) 40 meq 1X ONCE PO Last administered on 08/21/16 12:06; Start 08/21/16 at 08:00; Stop 08/21/16 at 08:02; Status DC Enoxaparin Sodium (Lovenox 40mg Syringe) 40 mg Q24H SQ Last administered on 08/21 12:09; Start 08/21/16 at 08:00; Stop 08/21/16 at 12:45; Status DC Enoxaparin Sodium (Lovenox 30mg Syringe) 30 mg DAILY SQ Last administered on 08:55; Start 08/22/16 at 09:00 Oxycodone/ Acetaminophen (Percocet 5/325) 1 tab PRN Q4HRS PRN PO SEVERE PAIN Last administered on 08/25/16 20:55; Start 08/25/16 at 12:30 Cefazolin Sodium/ Dextrose 50 ml @ 100 mls/hr 1X PREOP ONCE IV Last administered on 08/25/16 10:37; Start 08/25/16 at 18:00; Stop 08/25/16 at 18:29 ; Status DC Ondansetron HCl (Zofran) 4 mg PRN Q6HRS PRN IV NAUSEA/VOMITING; Start 08/26/16 at 08:45; Stop 08/26/16 at 18:00; Status DC Fentanyl Citrate (Fentanyl 2ml Vial) 25 mcg PRN Q5MIN PRN IV MILD PAIN; Start 08/26/16 at 08:45; Stop 08/26/16 at 18:00; Status DC Fentanyl Citrate (Fentanyl 2ml Vial) 50 mcg PRN Q5MIN PRN IV MODERATE PAIN Last administered on 08/26/16 15:10; Start 08/26/16 at 08:45; Stop 08/26/16 at 18:00; Status DC Morphine Sulfate 1 mg PRN Q10MIN PRN IV SEVERE PAIN; Start 08/26/16 at 08:45; Stop 08/26/16 at 18:00; Status DC Ringer's Solution 1,000 ml @ 30 mls/hr Q24H IV ; Start 08/26/16 at 08:44; Stop 08/26/16 at 20:43; Status DC Lidocaine HCl 2 ml PRN 1X PRN ID PRIOR TO IV START; Start 08/26/16 at 08:45; Stop 08/26/16 at 18:00; Status DC Hydromorphone HCl (Dilaudid) 0.5 mg PRN Q10MIN PRN IV SEV PAIN, Second choice; Start 08/26/16 at 08:45; Stop 08/26/16 at 18:00; Status DC Prochlorperazine Edisylate (Compazine) 5 mg PACU PRN PRN IV NAUSEA, MRX1; Start 08/26/16 at 08:45; Stop 08/26/16 at 18:00; Status DC Dexamethasone Sodium Phosphate (Decadron) 20 mg STK-MED ONCE .ROUTE ; Start 01/02 at 09:44; Stop 08/26/16 at 09:45; Status DC Ondansetron HCl (Zofran) 4 mg STK-MED ONCE .ROUTE ; Start 08/26/16 at 09:44; Stop 08/26/16 at 09:45; Status DC Propofol 20 ml @ As Directed STK-MED ONCE IV ; Start 08/26/16 at 09:44; Stop 01/02 at 09:45; Status DC Lidocaine HCl (Lidocaine Pf 2% Vial) 5 ml STK-MED ONCE .ROUTE ; Start 08/26/16 at 09:44; Stop 08/26/16 at 09:45; Status DC Fentanyl Citrate (Fentanyl 2ml Vial) 100 mcg STK-MED ONCE .ROUTE ; Start at 09:45; Stop 08/26/16 at 09:46; Status DC Cefazolin Sodium/ Dextrose 50 ml @ 100 mls/hr 1X PREOP ONCE IV ; Start at 10:15; Stop 08/26/16 at 10:44; Status DC Bupivacaine HCl/ Epinephrine Bitart (Marcaine-Epi 0.5%-[id number]) 50 ml STK-MED ONCE .ROUTE Last administered on 08/26/16t 10:45; Start 08/26/16 at 10:23; Stop 08/26/16 at 10:24; Status DC Enoxaparin Sodium (Lovenox 40mg Syringe) 40 mg Q24H SQ ; Start 08/26/16 at 11:30 ; Status UNV Sodium Chloride (Normal Saline Flush) 3 ml QSHIFT PRN IV AFTER MEDS AND BLOOD DRAWS; Start 08/26/16 at 11:30 Ringer's Solution 1,000 ml @ 100 mls/hr Q10H IV Last administered on 01:49; Start 08/26/16 at 11:24 Acetaminophen/ Hydrocodone Bitart (Lortab 5/325) 1 tab PRN Q4HRS PRN PO MODERATE PAIN; Start 08/26/16 at 11:30 Docusate Sodium (Colace) 100 mg BID PO Last administered on 08/27/16 08:52; Start 08/26/16 at 21:00 Fentanyl Citrate (Fentanyl 2ml Vial) 50 mcg PRN Q2HR PRN IV PAIN; Start at 14:45 Prochlorperazine Edisylate (Compazine) 10 mg PRN Q6HRS PRN IV NAUSEA/VOMITING Last administered on 08/26/16 16:24; Start 08/26/16 at 16:15 Active Scripts Active Keflex (Cephalexin) 250 Mg Capsule 1 Cap PO TID Reported Betimol (Timolol) 5 Ml Drops 5 Ml OP Xalatan (Latanoprost) 2.5 Ml Drops 1 Drop EACHEYE QHS Escitalopram Oxalate 10 Mg Tablet 1 Tab PO DAILY Tramadol Hcl 50 Mg Tablet 1 Tab PO Q8HRS PRN Advair 250-50 Diskus (Fluticasone/Salmeterol) 1 Each Disk.w.dev 1 Puff IH BID Proair Hfa Inhaler (Albuterol Sulfate) 8.5 Gm Hfa.aer.ad 108 Mcg INH Q4HRS PRN Losartan Potassium 50 Mg Tablet 50 Mg PO DAILY Amlodipine Besylate 5 Mg Tablet 7.5 Mg PO HS Diazepam 5 Mg Tablet 2.5 Mg PO BID Hydrochlorothiazide Tablet (Hydrochlorothiazide) 12.5 Mg Tablet 1 Tab PO DAILY Atorvastatin Calcium 20 Mg Tablet 20 Mg PO DAILY Fluticasone Propionate 15.8 Ml [place].susp 50 Mcg NS DAILY Benzonatate 100 Mg Capsule 200 Mg PO TID PRN Plavix (Clopidogrel Bisulfate) 75 Mg Tablet 75 Mg PO HS 30 Days Montelukast Sodium Tablet (Montelukast Sodium) 10 Mg Tablet 10 Mg PO DAILY Clonidine Hcl 0.1 Mg Tablet 0.1 Mg PO HS Vitals/I & O Vital Sign - Last 24 Hours 08/26/16 08/26/16 08/26/16 08/26/16 11:46 11:51 12:00 12:11 Pulse 80 89 Resp 20 20 20 B/P (MAP) 175/74 162/72 Pulse Ox 91 95 95 O2 Delivery Simple Mask Simple Mask Simple Mask Simple Mask O2 Flow Rate 10 10.0 10 2.0 08/26/16 08/26/16 08/26/16 08/26/16 12:15 12:26 12:30 13:00 Temp 98.5 98.5 97.5 98.5 98.5 97.5 Pulse 89 88 87 Resp 20 20 18 B/P (MAP) 145/71 145/71 155/55 (88) Pulse Ox 94 94 92 O2 Delivery Nasal Cannula Nasal Cannula Nasal Cannula Room Air O2 Flow Rate 2 2 2 08/26/16 08/26/16 08/26/16 08/26/16 13:15 13:30 13:40 13:45 Temp 97.5 97.5 97.5 97.5 97.5 97.5 Pulse 90 89 87 95 Resp 18 18 18 B/P (MAP) 144/63 (90) 142/107 (119) 142/107 164/81 (108) Pulse Ox 92 92 93 O2 Delivery Room Air Room Air Room Air 08/26/16 08/26/16 08/26/16 08/26/16 14:13 14:15 14:45 15:03 Temp 97.7 97.7 97.7 97.7 Pulse 86 102 96 Resp 18 18 B/P (MAP) 186/81 186/81 (116) 163/104 (123) Pulse Ox 96 96 O2 Delivery Room Air Room Air Nasal Cannula O2 Flow Rate 2.0 08/26/16 08/26/16 08/26/16 08/26/16 15:10 15:40 15:45 16:45 Temp 97.7 97.7 97.7 97.7 Pulse 104 98 Resp 18 18 B/P (MAP) 146/47 (80) 133/55 (81) Pulse Ox 96 96 O2 Delivery Nasal Cannula Nasal Cannula Room Air Room Air O2 Flow Rate 2.0 2.0 08/26/16 08/26/16 08/26/16 08/26/16 19:00 20:00 20:53 20:54 Temp 99.0 99.0 Pulse 103 Resp 20 B/P (MAP) 178/63 (101) Pulse Ox 93 94 94 O2 Delivery Room Air Nasal Cannula Nasal Cannula Nasal Cannula O2 Flow Rate 2.0 2.0 2.0 08/26/16 08/26/16 08/26/16 08/27/16 21:10 21:13 22:42 03:00 Temp 98.1 98.3 98.1 98.3 Pulse 97 97 91 92 Resp 20 20 B/P (MAP) 161/72 161/72 128/66 (86) 124/63 (83) Pulse Ox 95 91 O2 Delivery Room Air Room Air 08/27/16 08/27/16 08/27/16 07:00 07:45 08:53 Temp 98.3 98.3 Pulse 87 87 Resp 18 B/P (MAP) 117/64 (81) 117/64 Pulse Ox 94 95 O2 Delivery Room Air Nasal Cannula O2 Flow Rate 2.0 Intake and Output 08/26/16 08/26/16 08/27/16 15:00 23:00 07:00 Intake Total 560 ml 0 ml Output Total 5 ml 1000 ml Balance 555 ml 0 ml -1000 ml Nutrition Consultation Dietary Evaluation: Comments: diet adv as tolerated Expected Outcomes/Goals: to meet > 75% est nutr needs Malnutrition Findings: Body Fat Depletion (Non Severe: Mild Depletion Weight Status: Appropriate Fluid Accumulation (Non-Severe: Mild depletion REENA SHIRLEY MD Aug 27, 2016 11:40
--- NOTE | 2016-08-27 12:33 | PDOC ---
Subjective: Subjective: Feeling okay today. Tolerating clears, passing gas. Objective: Objective: Has orders to [facility]. Vital Signs: Vital Signs Date Time Temp Pulse Resp B/P (MAP) Pulse Ox O2 Delivery O2 Flow Rate FiO2 08/27/16 11:49 94 Nasal Cannula 2.0 08/27/16 11:00 98.4 95 18 139/72 (94) 98.4 Labs: Laboratory Tests Test 08/27/16 04:55 White Blood Count 13.3 x10^3/uL Red Blood Count 3.74 x10^6/uL Hemoglobin 11.5 g/dL Hematocrit 33.7 % Mean Corpuscular Volume 90 fL Mean Corpuscular Hemoglobin 31 pg Mean Corpuscular Hemoglobin Concent 34 g/dL Red Cell Distribution Width 13.7 % Platelet Count 268 x10^3/uL Neutrophils (%) (Auto) 80 % Lymphocytes (%) (Auto) 14 % Monocytes (%) (Auto) 6 % Eosinophils (%) (Auto) 0 % Basophils (%) (Auto) 0 % Neutrophils # (Auto) 10.6 x10^3uL Lymphocytes # (Auto) 1.9 x10^3/uL Monocytes # (Auto) 0.8 x10^3/uL Eosinophils # (Auto) 0.0 x10^3/uL Basophils # (Auto) 0.0 x10^3/uL Sodium Level 137 mmol/L Potassium Level 3.7 mmol/L Chloride Level 100 mmol/L Carbon Dioxide Level 31 mmol/L Anion Gap 6 Blood Urea Nitrogen 13 mg/dL Creatinine 0.5 mg/dL Estimated GFR (Cockcroft-Gault) 116.4 Glucose Level 135 mg/dL Calcium Level 8.1 mg/dL PE: GEN: NAD LUNGS: clear HEART: RRR ABD: soft NEURO/PSYCH: A & O 3 A/P: RLQ pain s/p RIH repair w/ mesh 08/26/16 -- Improved after surgery. [facility] per primary. Son interested in SNU. LA NENA CORDOBA Aug 27, 2016 12:33
--- NOTE | 2016-08-27 13:47 | PDOC ---
SURGICAL PROGRESS NOTE Subjective Pt denies c/o, stacy diet Vital Signs Vital Signs Date Time Temp Pulse Resp B/P (MAP) Pulse Ox O2 Delivery O2 Flow Rate FiO2 08/27/16 11:49 94 Nasal Cannula 2.0 08/27/16 11:00 98.4 95 18 139/72 (94) 98.4 I&O Intake and Output 08/27/16 07:00 Intake Total 560 ml Output Total 1005 ml Balance -445 ml Intake Oral 10 ml IV Total 550 ml Output Urine Total 1000 ml Estimated Blood Loss 5 ml # Voids 1 # Bowel Movements 1 General: Alert, Cooperative, No acute distress Abdomen: Soft, No tenderness Labs Laboratory Tests Test 08/26/16 02:50 08/27/16 04:55 White Blood Count 10.3 x10^3/uL (4.0-11.0) 13.3 x10^3/uL (4.0-11.0) Red Blood Count 3.87 x10^6/uL (3.50-5.40) 3.74 x10^6/uL (3.50-5.40) Hemoglobin 12.0 g/dL (12.0-15.5) 11.5 g/dL (12.0-15.5) Hematocrit 35.6 % (36.0-47.0) 33.7 % (36.0-47.0) Mean Corpuscular Volume 92 fL (79-100) 90 fL (79-100) Mean Corpuscular Hemoglobin 31 pg (25-35) 31 pg (25-35) Mean Corpuscular Hemoglobin Concent 34 g/dL (31-37) 34 g/dL (31-37) Red Cell Distribution Width 13.7 % (11.5-14.5) 13.7 % (11.5-14.5) Platelet Count 256 x10^3/uL (140-400) 268 x10^3/uL (140-400) Neutrophils (%) (Auto) 60 % (31-73) 80 % (31-73) Lymphocytes (%) (Auto) 28 % (24-48) 14 % (24-48) Monocytes (%) (Auto) 7 % (0-9) 6 % (0-9) Eosinophils (%) (Auto) 4 % (0-3) 0 % (0-3) Basophils (%) (Auto) 0 % (0-3) 0 % (0-3) Neutrophils # (Auto) 6.2 x10^3uL (1.8-7.7) 10.6 x10^3uL (1.8-7.7) Lymphocytes # (Auto) 2.9 x10^3/uL (1.0-4.8) 1.9 x10^3/uL (1.0-4.8) Monocytes # (Auto) 0.8 x10^3/uL (0.0-1.1) 0.8 x10^3/uL (0.0-1.1) Eosinophils # (Auto) 0.4 x10^3/uL (0.0-0.7) 0.0 x10^3/uL (0.0-0.7) Basophils # (Auto) 0.0 x10^3/uL (0.0-0.2) 0.0 x10^3/uL (0.0-0.2) Sodium Level 137 mmol/L (136-145) 137 mmol/L (136-145) Potassium Level 3.9 mmol/L (3.5-5.1) 3.7 mmol/L (3.5-5.1) Chloride Level 98 mmol/L (98-107) 100 mmol/L (98-107) Carbon Dioxide Level 32 mmol/L (21-32) 31 mmol/L (21-32) Anion Gap 7 (6-14) 6 (6-14) Blood Urea Nitrogen 11 mg/dL (7-20) 13 mg/dL (7-20) Creatinine 0.6 mg/dL (0.6-1.0) 0.5 mg/dL (0.6-1.0) Estimated GFR (Cockcroft-Gault) 94.3 116.4 Glucose Level 109 mg/dL (70-99) 135 mg/dL (70-99) Calcium Level 8.9 mg/dL (8.5-10.1) 8.1 mg/dL (8.5-10.1) Laboratory Tests Test 08/27/16 04:55 White Blood Count 13.3 x10^3/uL (4.0-11.0) Red Blood Count 3.74 x10^6/uL (3.50-5.40) Hemoglobin 11.5 g/dL (12.0-15.5) Hematocrit 33.7 % (36.0-47.0) Mean Corpuscular Volume 90 fL (79-100) Mean Corpuscular Hemoglobin 31 pg (25-35) Mean Corpuscular Hemoglobin Concent 34 g/dL (31-37) Red Cell Distribution Width 13.7 % (11.5-14.5) Platelet Count 268 x10^3/uL (140-400) Neutrophils (%) (Auto) 80 % (31-73) Lymphocytes (%) (Auto) 14 % (24-48) Monocytes (%) (Auto) 6 % (0-9) Eosinophils (%) (Auto) 0 % (0-3) Basophils (%) (Auto) 0 % (0-3) Neutrophils # (Auto) 10.6 x10^3uL (1.8-7.7) Lymphocytes # (Auto) 1.9 x10^3/uL (1.0-4.8) Monocytes # (Auto) 0.8 x10^3/uL (0.0-1.1) Eosinophils # (Auto) 0.0 x10^3/uL (0.0-0.7) Basophils # (Auto) 0.0 x10^3/uL (0.0-0.2) Sodium Level 137 mmol/L (136-145) Potassium Level 3.7 mmol/L (3.5-5.1) Chloride Level 100 mmol/L (98-107) Carbon Dioxide Level 31 mmol/L (21-32) Anion Gap 6 (6-14) Blood Urea Nitrogen 13 mg/dL (7-20) Creatinine 0.5 mg/dL (0.6-1.0) Estimated GFR (Cockcroft-Gault) 116.4 Glucose Level 135 mg/dL (70-99) Calcium Level 8.1 mg/dL (8.5-10.1) Problem List Problems Medical Problems: (1) Right lower quadrant abdominal pain Status: Acute Assessment/Plan s/p RIH repair ADAt d/c planning Problems: HORACIO MALCOLM MD Aug 27, 2016 13:47
[2016-08-27] MEDS: oxyCODONE/APAP 5/325 1 TAB TABLET PO PRN (17:35)
[2016-08-27 18:40] VITALS: BP 125/69
[2016-08-27 19:00] VITALS: BP 145/70
[2016-08-27] MEDS: LATANOPROST 0.005% OPHTH SOLUTION 2.5ML BOTTLE. OU SCH (21:00)
[2016-08-27] MEDS: BENZONATATE 100 MG CAPSULE. PO PRN (21:01)
[2016-08-27] MEDS: CLOPIDOGREL BISULFATE 75 MG TABLET PO SCH (21:02)
[2016-08-27] MEDS: ATORVASTATIN CALCIUM 20 MG TABLET PO SCH (21:02)
[2016-08-27] MEDS: amLODIPine BESYLATE 5 MG TABLET PO SCH (21:03)
[2016-08-27] MEDS: cloNIDine HCL 0.1 MG TABLET PO SCH (21:04)
[2016-08-27] MEDS: traMADol 50 MG TABLET PO PRN (21:04)
[2016-08-27 23:00] VITALS: BP 93/56
[2016-08-28] MEDS: IV RINGERS,LACTATED 1000ML 1,000 ML IV SCH ×2 (00:49→10:53)
[2016-08-28] MEDS: HYDROcodone/APAP 5/325MG 1 TAB TABLET PO PRN ×2 (04:03→12:43)
[2016-08-28 06:15] LABS: BASO % 0 % (0-3); EOS % 1 % (0-3); HEMATOCRIT 30.1 % (36.0-47.0); HEMOGLOBIN 10.2 g/dL (12.0-15.5); LYMPH # 2.8 x10^3/uL (1.0-4.8); LYMPH % 29 % (24-48); MEAN CORPUSCULAR HEMOGLOBIN 32 pg (25-35); MEAN CORPUSCULAR HGB CONC 34 g/dL (31-37); MEAN CORPUSCULAR VOLUME 93 fL (79-100); MONO % 8 % (0-9); NEUT % 62 % (31-73); PLATELET COUNT 252 x10^3/uL (140-400); RED BLOOD COUNT 3.23 x10^6/uL (3.50-5.40); RED CELL DISTRIBUTION WIDTH 13.7 % (11.5-14.5); WHITE BLOOD COUNT 9.6 x10^3/uL (4.0-11.0)
[2016-08-28 06:31] LABS: CALCIUM 7.5 mg/dL (8.5-10.1); CREATININE 0.5 mg/dL (0.6-1.0); GFR 116.4
[2016-08-28 07:00] VITALS: BP 122/56
[2016-08-28] MEDS: IPRATRPIUM/ALBUTEROL 0.5/2.5MG 3 ML NEBU. NEB SCH ×2 (07:01→10:49)
[2016-08-28] MEDS: BUDESONIDE 0.5 MG/2 ML NEBU. NEB SCH (07:01)
[2016-08-28] MEDS: PANTOPRAZOLE 40 MG TABLET.DR. PO SCH (07:49)
--- NOTE | 2016-08-28 08:44 | PDOC ---
Subjective: Subjective: In restroom washing face, walks w/ walker/aide back to bed. Still some RLQ discomfort. Tells me tolerating PO and stooling but might need some more Miralax today. Objective: Vital Signs: Vital Signs Date Time Temp Pulse Resp B/P (MAP) Pulse Ox O2 Delivery O2 Flow Rate FiO2 08/28/16 07:03 98 Nasal Cannula 2.0 08/28/16 07:00 97.7 80 18 122/56 (78) 97.7 Labs: Laboratory Tests Test 08/28/16 05:45 White Blood Count 9.6 x10^3/uL Red Blood Count 3.23 x10^6/uL Hemoglobin 10.2 g/dL Hematocrit 30.1 % Mean Corpuscular Volume 93 fL Mean Corpuscular Hemoglobin 32 pg Mean Corpuscular Hemoglobin Concent 34 g/dL Red Cell Distribution Width 13.7 % Platelet Count 252 x10^3/uL Neutrophils (%) (Auto) 62 % Lymphocytes (%) (Auto) 29 % Monocytes (%) (Auto) 8 % Eosinophils (%) (Auto) 1 % Basophils (%) (Auto) 0 % Neutrophils # (Auto) 6.0 x10^3uL Lymphocytes # (Auto) 2.8 x10^3/uL Monocytes # (Auto) 0.8 x10^3/uL Eosinophils # (Auto) 0.1 x10^3/uL Basophils # (Auto) 0.0 x10^3/uL Sodium Level 143 mmol/L Potassium Level 4.0 mmol/L Chloride Level 106 mmol/L Carbon Dioxide Level 34 mmol/L Anion Gap 3 Blood Urea Nitrogen 12 mg/dL Creatinine 0.5 mg/dL Estimated GFR (Cockcroft-Gault) 116.4 Glucose Level 95 mg/dL Calcium Level 7.5 mg/dL PE: GEN: NAD LUNGS: clear HEART: S1S2 ABD: soft, RLQ incisional tenderness NEURO/PSYCH: A & O 3 A/P: RLQ pain - improved S/p RIH repair w/ mesh 08/26/16 -- DC per primary. Asks me to add another order for Miralax PRN. LA NENA CORDOBA Aug 28, 2016 08:44
[2016-08-28] MEDS ORDERED: POLYETHYLENE GLYCOL 3350 17 GM PACKET. PO PRN (08:45)
[2016-08-28] MEDS: hydroCHLOROthiazide 12.5 MG CAPSULE PO SCH (09:00)
[2016-08-28] MEDS: DOCUSATE SODIUM 100 MG CAPSULE. PO SCH (09:18)
[2016-08-28] MEDS: FLUTICASONE 50MCG/NASAL SPRAY 16GM BOTTLE. NS SCH (09:18)
[2016-08-28] MEDS: MONTELUKAST SODIUM 10 MG TABLET. PO SCH (09:18)
[2016-08-28] MEDS: ESCITALOPRAM 10 MG TABLET. PO SCH (09:19)
[2016-08-28] MEDS: POLYETHYLENE GLYCOL 3350 17 GM PACKET. PO SCH (09:19)
[2016-08-28] MEDS: BENZONATATE 100 MG CAPSULE. PO PRN (09:19)
[2016-08-28] MEDS: ENOXAPARIN 30 MG/0.3 ML SYRINGE. SQ SCH (09:20)
[2016-08-28] MEDS: diazePAM 5 MG TABLET PO SCH (09:20)
[2016-08-28] MEDS: LOSARTAN POTASSIUM 50 MG TABLET. PO SCH (09:21)
--- NOTE | 2016-08-28 10:58 | PDOC3 ---
Discharge Summary Visit Information Date of Discharge: Aug 28, 2016 Admitting Diagnosis: inguinal hernia Final Diagnosis Problems Medical Problems: (1) Right lower quadrant abdominal pain Status: Acute Brief Hospital Course Allergies Allergies Coded Allergies Type Severity Reaction Last Updated Verified Sulfa (Sulfonamide Antibiotics) Allergy Intermediate 08/26/16 Yes codeine Adverse Reaction Intermediate NAUSEA AND VOMITING 08/26/16 Yes Vital Signs Vital Signs Date Time Temp Pulse Resp B/P (MAP) Pulse Ox O2 Delivery O2 Flow Rate FiO2 08/28/16 10:51 92 Room Air 08/28/16 09:21 80 122/56 08/28/16 07:03 2.0 08/28/16 07:00 97.7 18 97.7 Lab Results Laboratory Tests Test 08/27/16 04:55 08/28/16 05:45 White Blood Count 13.3 x10^3/uL (4.0-11.0) 9.6 x10^3/uL (4.0-11.0) Red Blood Count 3.74 x10^6/uL (3.50-5.40) 3.23 x10^6/uL (3.50-5.40) Hemoglobin 11.5 g/dL (12.0-15.5) 10.2 g/dL (12.0-15.5) Hematocrit 33.7 % (36.0-47.0) 30.1 % (36.0-47.0) Mean Corpuscular Volume 90 fL (79-100) 93 fL (79-100) Mean Corpuscular Hemoglobin 31 pg (25-35) 32 pg (25-35) Mean Corpuscular Hemoglobin Concent 34 g/dL (31-37) 34 g/dL (31-37) Red Cell Distribution Width 13.7 % (11.5-14.5) 13.7 % (11.5-14.5) Platelet Count 268 x10^3/uL (140-400) 252 x10^3/uL (140-400) Neutrophils (%) (Auto) 80 % (31-73) 62 % (31-73) Lymphocytes (%) (Auto) 14 % (24-48) 29 % (24-48) Monocytes (%) (Auto) 6 % (0-9) 8 % (0-9) Eosinophils (%) (Auto) 0 % (0-3) 1 % (0-3) Basophils (%) (Auto) 0 % (0-3) 0 % (0-3) Neutrophils # (Auto) 10.6 x10^3uL (1.8-7.7) 6.0 x10^3uL (1.8-7.7) Lymphocytes # (Auto) 1.9 x10^3/uL (1.0-4.8) 2.8 x10^3/uL (1.0-4.8) Monocytes # (Auto) 0.8 x10^3/uL (0.0-1.1) 0.8 x10^3/uL (0.0-1.1) Eosinophils # (Auto) 0.0 x10^3/uL (0.0-0.7) 0.1 x10^3/uL (0.0-0.7) Basophils # (Auto) 0.0 x10^3/uL (0.0-0.2) 0.0 x10^3/uL (0.0-0.2) Sodium Level 137 mmol/L (136-145) 143 mmol/L (136-145) Potassium Level 3.7 mmol/L (3.5-5.1) 4.0 mmol/L (3.5-5.1) Chloride Level 100 mmol/L (98-107) 106 mmol/L (98-107) Carbon Dioxide Level 31 mmol/L (21-32) 34 mmol/L (21-32) Anion Gap 6 (6-14) 3 (6-14) Blood Urea Nitrogen 13 mg/dL (7-20) 12 mg/dL (7-20) Creatinine 0.5 mg/dL (0.6-1.0) 0.5 mg/dL (0.6-1.0) Estimated GFR (Cockcroft-Gault) 116.4 116.4 Glucose Level 135 mg/dL (70-99) 95 mg/dL (70-99) Calcium Level 8.1 mg/dL (8.5-10.1) 7.5 mg/dL (8.5-10.1) Laboratory Tests Test 08/28/16 05:45 White Blood Count 9.6 x10^3/uL (4.0-11.0) Red Blood Count 3.23 x10^6/uL (3.50-5.40) Hemoglobin 10.2 g/dL (12.0-15.5) Hematocrit 30.1 % (36.0-47.0) Mean Corpuscular Volume 93 fL (79-100) Mean Corpuscular Hemoglobin 32 pg (25-35) Mean Corpuscular Hemoglobin Concent 34 g/dL (31-37) Red Cell Distribution Width 13.7 % (11.5-14.5) Platelet Count 252 x10^3/uL (140-400) Neutrophils (%) (Auto) 62 % (31-73) Lymphocytes (%) (Auto) 29 % (24-48) Monocytes (%) (Auto) 8 % (0-9) Eosinophils (%) (Auto) 1 % (0-3) Basophils (%) (Auto) 0 % (0-3) Neutrophils # (Auto) 6.0 x10^3uL (1.8-7.7) Lymphocytes # (Auto) 2.8 x10^3/uL (1.0-4.8) Monocytes # (Auto) 0.8 x10^3/uL (0.0-1.1) Eosinophils # (Auto) 0.1 x10^3/uL (0.0-0.7) Basophils # (Auto) 0.0 x10^3/uL (0.0-0.2) Sodium Level 143 mmol/L (136-145) Potassium Level 4.0 mmol/L (3.5-5.1) Chloride Level 106 mmol/L (98-107) Carbon Dioxide Level 34 mmol/L (21-32) Anion Gap 3 (6-14) Blood Urea Nitrogen 12 mg/dL (7-20) Creatinine 0.5 mg/dL (0.6-1.0) Estimated GFR (Cockcroft-Gault) 116.4 Glucose Level 95 mg/dL (70-99) Calcium Level 7.5 mg/dL (8.5-10.1) Brief Hospital Course Ms. Jasmine is a 86 old [sex] who presented with [ ]symptomatic R inguinal hernia Take to OR for correction and repair Seen and examined this am At baseline VSS Will dc Total time 32 minutes Discharge Information Scheduled Amlodipine Besylate (Amlodipine Besylate), 7.5 MG PO HS, (Reported) Atorvastatin Calcium (Atorvastatin Calcium), 20 MG PO DAILY, (Reported) Cephalexin (Keflex), 1 CAP PO TID Clonidine Hcl (Clonidine Hcl), 0.1 MG PO HS, (Reported) Clopidogrel Bisulfate (Plavix), 75 MG PO HS, (Reported) Diazepam (Diazepam), 2.5 MG PO BID, (Reported) Escitalopram Oxalate (Escitalopram Oxalate), 1 TAB PO DAILY, (Reported) Fluticasone Propionate (Fluticasone Propionate), 50 MCG NS DAILY, (Reported) Fluticasone/Salmeterol (Advair 250-50 Diskus), 1 PUFF IH BID, (Reported) Hydrochlorothiazide (Hydrochlorothiazide Tablet), 1 TAB PO DAILY, (Reported) Latanoprost (Xalatan), 1 DROP EACHEYE QHS, (Reported) Losartan Potassium (Losartan Potassium), 50 MG PO DAILY, (Reported) Montelukast Sodium (Montelukast Sodium Tablet), 10 MG PO DAILY, (Reported) Scheduled PRN Albuterol Sulfate (Proair Hfa Inhaler), 108 MCG INH Q4HRS PRN for SHORTNESS OF BREATH, (Reported) Benzonatate (Benzonatate), 200 MG PO TID PRN for COUGH, (Reported) Tramadol Hcl (Tramadol Hcl), 1 TAB PO Q8HRS PRN for PAIN, (Reported) Miscellaneous Medications Timolol (Betimol), 5 ML OP, (Reported) EVELYN NEGRETE III, DO Aug 28, 2016 10:57
[2016-08-28 11:00] VITALS: BP 143/65
--- NOTE | 2016-08-28 11:15 | PDOC ---
SURGICAL PROGRESS NOTE Subjective Tolerating diet some pain at incision no n/v Vital Signs Vital Signs Date Time Temp Pulse Resp B/P (MAP) Pulse Ox O2 Delivery O2 Flow Rate FiO2 08/28/16 11:00 97.5 85 18 143/65 (91) 93 Room Air 97.5 08/28/16 07:03 2.0 I&O Intake and Output 08/28/16 07:00 Intake Total 2420 ml Output Total 1451 ml Balance 969 ml Intake Oral 1620 ml Other 800 ml Output Urine Total 1450 ml Stool Total 1 ml # Voids 4 General: Alert, Oriented X3, Cooperative, No acute distress Abdomen: Soft, Other (RIH dressing dry, minimal swelling ) Labs Laboratory Tests Test 08/27/16 04:55 08/28/16 05:45 White Blood Count 13.3 x10^3/uL (4.0-11.0) 9.6 x10^3/uL (4.0-11.0) Red Blood Count 3.74 x10^6/uL (3.50-5.40) 3.23 x10^6/uL (3.50-5.40) Hemoglobin 11.5 g/dL (12.0-15.5) 10.2 g/dL (12.0-15.5) Hematocrit 33.7 % (36.0-47.0) 30.1 % (36.0-47.0) Mean Corpuscular Volume 90 fL (79-100) 93 fL (79-100) Mean Corpuscular Hemoglobin 31 pg (25-35) 32 pg (25-35) Mean Corpuscular Hemoglobin Concent 34 g/dL (31-37) 34 g/dL (31-37) Red Cell Distribution Width 13.7 % (11.5-14.5) 13.7 % (11.5-14.5) Platelet Count 268 x10^3/uL (140-400) 252 x10^3/uL (140-400) Neutrophils (%) (Auto) 80 % (31-73) 62 % (31-73) Lymphocytes (%) (Auto) 14 % (24-48) 29 % (24-48) Monocytes (%) (Auto) 6 % (0-9) 8 % (0-9) Eosinophils (%) (Auto) 0 % (0-3) 1 % (0-3) Basophils (%) (Auto) 0 % (0-3) 0 % (0-3) Neutrophils # (Auto) 10.6 x10^3uL (1.8-7.7) 6.0 x10^3uL (1.8-7.7) Lymphocytes # (Auto) 1.9 x10^3/uL (1.0-4.8) 2.8 x10^3/uL (1.0-4.8) Monocytes # (Auto) 0.8 x10^3/uL (0.0-1.1) 0.8 x10^3/uL (0.0-1.1) Eosinophils # (Auto) 0.0 x10^3/uL (0.0-0.7) 0.1 x10^3/uL (0.0-0.7) Basophils # (Auto) 0.0 x10^3/uL (0.0-0.2) 0.0 x10^3/uL (0.0-0.2) Sodium Level 137 mmol/L (136-145) 143 mmol/L (136-145) Potassium Level 3.7 mmol/L (3.5-5.1) 4.0 mmol/L (3.5-5.1) Chloride Level 100 mmol/L (98-107) 106 mmol/L (98-107) Carbon Dioxide Level 31 mmol/L (21-32) 34 mmol/L (21-32) Anion Gap 6 (6-14) 3 (6-14) Blood Urea Nitrogen 13 mg/dL (7-20) 12 mg/dL (7-20) Creatinine 0.5 mg/dL (0.6-1.0) 0.5 mg/dL (0.6-1.0) Estimated GFR (Cockcroft-Gault) 116.4 116.4 Glucose Level 135 mg/dL (70-99) 95 mg/dL (70-99) Calcium Level 8.1 mg/dL (8.5-10.1) 7.5 mg/dL (8.5-10.1) Laboratory Tests Test 08/28/16 05:45 White Blood Count 9.6 x10^3/uL (4.0-11.0) Red Blood Count 3.23 x10^6/uL (3.50-5.40) Hemoglobin 10.2 g/dL (12.0-15.5) Hematocrit 30.1 % (36.0-47.0) Mean Corpuscular Volume 93 fL (79-100) Mean Corpuscular Hemoglobin 32 pg (25-35) Mean Corpuscular Hemoglobin Concent 34 g/dL (31-37) Red Cell Distribution Width 13.7 % (11.5-14.5) Platelet Count 252 x10^3/uL (140-400) Neutrophils (%) (Auto) 62 % (31-73) Lymphocytes (%) (Auto) 29 % (24-48) Monocytes (%) (Auto) 8 % (0-9) Eosinophils (%) (Auto) 1 % (0-3) Basophils (%) (Auto) 0 % (0-3) Neutrophils # (Auto) 6.0 x10^3uL (1.8-7.7) Lymphocytes # (Auto) 2.8 x10^3/uL (1.0-4.8) Monocytes # (Auto) 0.8 x10^3/uL (0.0-1.1) Eosinophils # (Auto) 0.1 x10^3/uL (0.0-0.7) Basophils # (Auto) 0.0 x10^3/uL (0.0-0.2) Sodium Level 143 mmol/L (136-145) Potassium Level 4.0 mmol/L (3.5-5.1) Chloride Level 106 mmol/L (98-107) Carbon Dioxide Level 34 mmol/L (21-32) Anion Gap 3 (6-14) Blood Urea Nitrogen 12 mg/dL (7-20) Creatinine 0.5 mg/dL (0.6-1.0) Estimated GFR (Cockcroft-Gault) 116.4 Glucose Level 95 mg/dL (70-99) Calcium Level 7.5 mg/dL (8.5-10.1) Problem List Problems Medical Problems: (1) Right lower quadrant abdominal pain Status: Acute Assessment/Plan s/p RIHR dc today FU 2 weeks Problems: [employer] Aug 28, 2016 11:15
--- NOTE | 2016-08-28 11:20 | PDOC ---
PROGRESS NOTES Chief Complaint Chief Complaint 1. RLQ abd pain, now POD #1 hernia repair, 2. R inguinal hernia, now repaired, 3. HTN 4. GERD 5. HLP 6. Asthma 7. PAD 8. CAD 9. Chronic lymphedema 10. Anxiety 11. Depression 12. OA 13. weakeness and debility History of Present Illness History of Present Illness pain much better today some po intake OOB to chair likely need SNU soon gen surg f/u Vitals Vitals Vital Signs Date Time Temp Pulse Resp B/P (MAP) Pulse Ox O2 Delivery O2 Flow Rate FiO2 08/28/16 11:00 97.5 85 18 143/65 (91) 93 Room Air 97.5 08/28/16 07:03 2.0 Physical Exam General: Alert, Oriented X3, Cooperative, No acute distress Heart: Regular rate, Normal S1, Normal S2 Lungs: Clear Abdomen: Soft, Other ([facility] dressing dry, clean, minimal swelling ) Extremities: No clubbing, No cyanosis Skin: No rashes, No breakdown, No significant lesion Labs LABS Laboratory Tests Test 08/28/16 05:45 White Blood Count 9.6 x10^3/uL (4.0-11.0) Red Blood Count 3.23 x10^6/uL (3.50-5.40) Hemoglobin 10.2 g/dL (12.0-15.5) Hematocrit 30.1 % (36.0-47.0) Mean Corpuscular Volume 93 fL (79-100) Mean Corpuscular Hemoglobin 32 pg (25-35) Mean Corpuscular Hemoglobin Concent 34 g/dL (31-37) Red Cell Distribution Width 13.7 % (11.5-14.5) Platelet Count 252 x10^3/uL (140-400) Neutrophils (%) (Auto) 62 % (31-73) Lymphocytes (%) (Auto) 29 % (24-48) Monocytes (%) (Auto) 8 % (0-9) Eosinophils (%) (Auto) 1 % (0-3) Basophils (%) (Auto) 0 % (0-3) Neutrophils # (Auto) 6.0 x10^3uL (1.8-7.7) Lymphocytes # (Auto) 2.8 x10^3/uL (1.0-4.8) Monocytes # (Auto) 0.8 x10^3/uL (0.0-1.1) Eosinophils # (Auto) 0.1 x10^3/uL (0.0-0.7) Basophils # (Auto) 0.0 x10^3/uL (0.0-0.2) Sodium Level 143 mmol/L (136-145) Potassium Level 4.0 mmol/L (3.5-5.1) Chloride Level 106 mmol/L (98-107) Carbon Dioxide Level 34 mmol/L (21-32) Anion Gap 3 (6-14) Blood Urea Nitrogen 12 mg/dL (7-20) Creatinine 0.5 mg/dL (0.6-1.0) Estimated GFR (Cockcroft-Gault) 116.4 Glucose Level 95 mg/dL (70-99) Calcium Level 7.5 mg/dL (8.5-10.1) Review of Systems Review of Systems Patient doing well this AM, states she has some minor discomfort at the incisional site. Denies fever, chills. Assessment and Plan Assessmemt and Plan Assessment: 1. RLQ abd pain, now POD #1 hernia repair, 2. R inguinal hernia, now repaired, 3. HTN 4. GERD 5. HLP 6. Asthma 7. PAD 8. CAD 9. Chronic lymphedema 10. Anxiety 11. Depression 12. OA 13. weakness and debility Plan: 1. Ordering SNU eval 2. Likely discharge pending surgery input 3. Cont DVT prophylaxis 4. Cont wound care 5. Discussed plan with patient and answered questions Problems: Comment Review of Relevant I have reviewed the following items delaney (where applicable) has been applied. Labs Laboratory Tests Test 08/27/16 04:55 08/28/16 05:45 White Blood Count 13.3 x10^3/uL (4.0-11.0) 9.6 x10^3/uL (4.0-11.0) Red Blood Count 3.74 x10^6/uL (3.50-5.40) 3.23 x10^6/uL (3.50-5.40) Hemoglobin 11.5 g/dL (12.0-15.5) 10.2 g/dL (12.0-15.5) Hematocrit 33.7 % (36.0-47.0) 30.1 % (36.0-47.0) Mean Corpuscular Volume 90 fL (79-100) 93 fL (79-100) Mean Corpuscular Hemoglobin 31 pg (25-35) 32 pg (25-35) Mean Corpuscular Hemoglobin Concent 34 g/dL (31-37) 34 g/dL (31-37) Red Cell Distribution Width 13.7 % (11.5-14.5) 13.7 % (11.5-14.5) Platelet Count 268 x10^3/uL (140-400) 252 x10^3/uL (140-400) Neutrophils (%) (Auto) 80 % (31-73) 62 % (31-73) Lymphocytes (%) (Auto) 14 % (24-48) 29 % (24-48) Monocytes (%) (Auto) 6 % (0-9) 8 % (0-9) Eosinophils (%) (Auto) 0 % (0-3) 1 % (0-3) Basophils (%) (Auto) 0 % (0-3) 0 % (0-3) Neutrophils # (Auto) 10.6 x10^3uL (1.8-7.7) 6.0 x10^3uL (1.8-7.7) Lymphocytes # (Auto) 1.9 x10^3/uL (1.0-4.8) 2.8 x10^3/uL (1.0-4.8) Monocytes # (Auto) 0.8 x10^3/uL (0.0-1.1) 0.8 x10^3/uL (0.0-1.1) Eosinophils # (Auto) 0.0 x10^3/uL (0.0-0.7) 0.1 x10^3/uL (0.0-0.7) Basophils # (Auto) 0.0 x10^3/uL (0.0-0.2) 0.0 x10^3/uL (0.0-0.2) Sodium Level 137 mmol/L (136-145) 143 mmol/L (136-145) Potassium Level 3.7 mmol/L (3.5-5.1) 4.0 mmol/L (3.5-5.1) Chloride Level 100 mmol/L (98-107) 106 mmol/L (98-107) Carbon Dioxide Level 31 mmol/L (21-32) 34 mmol/L (21-32) Anion Gap 6 (6-14) 3 (6-14) Blood Urea Nitrogen 13 mg/dL (7-20) 12 mg/dL (7-20) Creatinine 0.5 mg/dL (0.6-1.0) 0.5 mg/dL (0.6-1.0) Estimated GFR (Cockcroft-Gault) 116.4 116.4 Glucose Level 135 mg/dL (70-99) 95 mg/dL (70-99) Calcium Level 8.1 mg/dL (8.5-10.1) 7.5 mg/dL (8.5-10.1) Laboratory Tests Test 08/28/16 05:45 White Blood Count 9.6 x10^3/uL (4.0-11.0) Red Blood Count 3.23 x10^6/uL (3.50-5.40) Hemoglobin 10.2 g/dL (12.0-15.5) Hematocrit 30.1 % (36.0-47.0) Mean Corpuscular Volume 93 fL (79-100) Mean Corpuscular Hemoglobin 32 pg (25-35) Mean Corpuscular Hemoglobin Concent 34 g/dL (31-37) Red Cell Distribution Width 13.7 % (11.5-14.5) Platelet Count 252 x10^3/uL (140-400) Neutrophils (%) (Auto) 62 % (31-73) Lymphocytes (%) (Auto) 29 % (24-48) Monocytes (%) (Auto) 8 % (0-9) Eosinophils (%) (Auto) 1 % (0-3) Basophils (%) (Auto) 0 % (0-3) Neutrophils # (Auto) 6.0 x10^3uL (1.8-7.7) Lymphocytes # (Auto) 2.8 x10^3/uL (1.0-4.8) Monocytes # (Auto) 0.8 x10^3/uL (0.0-1.1) Eosinophils # (Auto) 0.1 x10^3/uL (0.0-0.7) Basophils # (Auto) 0.0 x10^3/uL (0.0-0.2) Sodium Level 143 mmol/L (136-145) Potassium Level 4.0 mmol/L (3.5-5.1) Chloride Level 106 mmol/L (98-107) Carbon Dioxide Level 34 mmol/L (21-32) Anion Gap 3 (6-14) Blood Urea Nitrogen 12 mg/dL (7-20) Creatinine 0.5 mg/dL (0.6-1.0) Estimated GFR (Cockcroft-Gault) 116.4 Glucose Level 95 mg/dL (70-99) Calcium Level 7.5 mg/dL (8.5-10.1) Microbiology 08/20/16 Urine Culture - Final, Complete 08/20/16 Urine Culture Result 1 (KARLOS) - Final, Complete Medications Current Medications Hydromorphone HCl (Dilaudid) 0.5 mg PRN Q1HR PRN IV SEVERE PAIN Last administered on 08/25/16 02:13; Start 08/20/16 at 10:30; Stop 08/25/16 at 02:14 ; Status DC Ondansetron HCl (Zofran) 4 mg 1X ONCE IV Last administered on 08/20/16 10:42; Start 08/20/16 at 10:30; Stop 08/20/16 at 10:33; Status DC Sodium Chloride 500 ml @ 500 mls/hr 1X ONCE IV Last administered on 08/20/16 10:41; Start 08/20/16 at 10:30; Stop 08/20/16 at 11:29; Status DC Iohexol (Omnipaque 300 Mg/ml) 75 ml 1X ONCE IV Last administered on 08/20/16 11:36; Start 08/20/16 at 11:15; Stop 08/20/16 at 11:25; Status DC Info (Do NOT chart on this entry -- for MONITORING) 1 each PRN DAILY PRN MC SEE COMMENTS; Start 08/20/16 at 11:30; Stop 08/21/16 at 12:44; Status DC Hydromorphone HCl (Dilaudid) 0.5 mg 1X ONCE IVP ; Start 08/20/16 at 11:45; Stop 08/20/16 at 11:46; Status DC Ondansetron HCl (Zofran) 4 mg PRN Q8HRS PRN IV NAUSEA/VOMITING; Start 08/20/16 at 13:15; Stop 08/21/16 at 12:47; Status DC Morphine Sulfate 2 mg PRN Q2HR PRN IV PAIN; Start 08/20/16 at 13:15; Stop at 13:14; Status DC Sodium Chloride 1,000 ml @ 125 mls/hr Q8H IV Last administered on 08/20/16 16: 00; Start 08/20/16 at 13:09; Stop 08/20/16 at 19:25; Status DC Polyethylene Glycol (miraLAX PACKET) 17 gm DAILY PO Last administered on 09:19; Start 08/20/16 at 15:15 Pantoprazole Sodium (Protonix) 40 mg DAILYAC PO Last administered on 08/28/16 07:49; Start 08/20/16 at 16:30 Potassium Chloride/Sodium Chloride 1,000 ml @ 75 mls/hr 1X ONCE IV Last administered on 08/20/16 20:57; Start 08/20/16 at 20:00; Stop 08/21/16 at 09:19; Status DC Sodium Chloride 1,000 ml @ 75 mls/hr [id number] IV Last administered on 08/21/16 12:08; Start 08/20/16 at 19:30; Stop 08/21/16 at 13:23; Status DC Acetaminophen (Tylenol) 325 mg PRN Q6HRS PRN PO MILD PAIN / TEMP Last administered on 08/21/16 20:43; Start 08/20/16 at 19:30 Hydralazine HCl (Apresoline) 10 mg PRN Q4HRS PRN IVP ELEVATED BP, SEE COMMENTS Last administered on 08/26/16 14:13; Start 08/20/16 at 19:30 Ondansetron HCl (Zofran) 4 mg PRN Q8HRS PRN IV NAUSEA/VOMITING (1st Choice) Last administered on 08/26/16 21:05; Start 08/20/16 at 19:30 Albuterol Sulfate (Ventolin Neb Soln) 2.5 mg PRN Q4HRS PRN NEB SHORTNESS OF BREATH; Start 08/20/16 at 19:30 Amlodipine Besylate (Norvasc) 7.5 mg HS PO Last administered on 08/27/16 21:03 ; Start 08/20/16 at 21:00 Atorvastatin Calcium (Lipitor) 20 mg QHS PO Last administered on 08/27/16 21: 02; Start 08/20/16 at 21:00 Benzonatate (Tessalon Perle) 200 mg TID PRN PO COUGH Last administered on 09:19; Start 08/20/16 at 19:45 Clonidine HCl (Catapres) 0.1 mg HS PO Last administered on 08/27/16 21:04; Start 08/20/16 at 21:00 Clopidogrel Bisulfate (Plavix) 75 mg HS PO Last administered on 08/27/16 21:02 ; Start 08/20/16 at 21:00 Diazepam (Valium) 2.5 mg BID PO Last administered on 08/28/16 09:20; Start 08/20/16 at 21:00 Latanoprost (Xalatan) 1 drop QHS OU Last administered on 08/27/16 21:00; Start 08/20/16 at 21:00 Losartan Potassium (Cozaar) 50 mg DAILY PO Last administered on 08/28/16 09:21 ; Start 08/21/16 at 09:00 Montelukast Sodium (Singulair) 10 mg DAILY PO Last administered on 08/28/16 09 :18; Start 08/21/16 at 09:00 Tramadol HCl (Ultram) 50 mg Q8HRS PRN PO MILD PAIN Last administered on 21:04; Start 08/20/16 at 19:45 Non-Formulary Medication 108 mcg Q4HRS PRN INH SHORTNESS OF BREATH; Start at 19:45; Status UNV Escitalopram Oxalate (Lexapro) 10 mg DAILY PO Last administered on 08/28/16 09 :19; Start 08/21/16 at 09:00 Fluticasone Propionate (Flonase) 2 spray DAILY NS Last administered on 09:18; Start 08/21/16 at 09:00 Non-Formulary Medication 1 puff BID IH ; Start 08/20/16 at 21:00; Status UNV Hydrochlorothiazide (Microzide) 12.5 mg DAILY PO Last administered on 08:54; Start 08/21/16 at 09:00 Albuterol/ Ipratropium (Duoneb) 3 ml RTQID NEB Last administered on 08/28/16 10:49; Start 08/20/16 at 20:00 Budesonide (Pulmicort) 0.5 mg RTBID NEB Last administered on 08/28/16 07:01; Start 08/20/16 at 20:00 Iohexol (Omnipaque 350 Mg/ml) 90 ml 1X ONCE IV Last administered on 08/21/16 07:00; Start 08/21/16 at 07:00; Stop 08/21/16 at 07:01; Status DC Info (Do NOT chart on this entry -- for MONITORING) 1 each PRN DAILY PRN MC SEE COMMENTS; Start 08/21/16 at 06:30; Stop 08/23/16 at 06:29; Status DC Potassium Chloride (Klor-Con) 40 meq 1X ONCE PO Last administered on 08/21/16 12:06; Start 08/21/16 at 08:00; Stop 08/21/16 at 08:02; Status DC Enoxaparin Sodium (Lovenox 40mg Syringe) 40 mg Q24H SQ Last administered on 08/21 12:09; Start 08/21/16 at 08:00; Stop 08/21/16 at 12:45; Status DC Enoxaparin Sodium (Lovenox 30mg Syringe) 30 mg DAILY SQ Last administered on 09:20; Start 08/22/16 at 09:00 Oxycodone/ Acetaminophen (Percocet 5/325) 1 tab PRN Q4HRS PRN PO SEVERE PAIN Last administered on 08/27/16 17:35; Start 08/25/16 at 12:30 Cefazolin Sodium/ Dextrose 50 ml @ 100 mls/hr 1X PREOP ONCE IV Last administered on 08/25/16 10:37; Start 08/25/16 at 18:00; Stop 08/25/16 at 18:29 ; Status DC Ondansetron HCl (Zofran) 4 mg PRN Q6HRS PRN IV NAUSEA/VOMITING; Start 08/26/16 at 08:45; Stop 08/26/16 at 18:00; Status DC Fentanyl Citrate (Fentanyl 2ml Vial) 25 mcg PRN Q5MIN PRN IV MILD PAIN; Start 08/26/16 at 08:45; Stop 08/26/16 at 18:00; Status DC Fentanyl Citrate (Fentanyl 2ml Vial) 50 mcg PRN Q5MIN PRN IV MODERATE PAIN Last administered on 08/26/16t 15:10; Start 08/26/16 at 08:45; Stop 08/26/16 at 18:00; Status DC Morphine Sulfate 1 mg PRN Q10MIN PRN IV SEVERE PAIN; Start 08/26/16 at 08:45; Stop 08/26/16 at 18:00; Status DC Ringer's Solution 1,000 ml @ 30 mls/hr Q24H IV ; Start 08/26/16 at 08:44; Stop 08/26/16 at 20:43; Status DC Lidocaine HCl 2 ml PRN 1X PRN ID PRIOR TO IV START; Start 08/26/16 at 08:45; Stop 08/26/16 at 18:00; Status DC Hydromorphone HCl (Dilaudid) 0.5 mg PRN Q10MIN PRN IV SEV PAIN, Second choice; Start 08/26/16 at 08:45; Stop 08/26/16 at 18:00; Status DC Prochlorperazine Edisylate (Compazine) 5 mg PACU PRN PRN IV NAUSEA, MRX1; Start 08/26/16 at 08:45; Stop 08/26/16 at 18:00; Status DC Dexamethasone Sodium Phosphate (Decadron) 20 mg STK-MED ONCE .ROUTE ; Start 01/02 at 09:44; Stop 08/26/16 at 09:45; Status DC Ondansetron HCl (Zofran) 4 mg STK-MED ONCE .ROUTE ; Start 08/26/16 at 09:44; Stop 08/26/16 at 09:45; Status DC Propofol 20 ml @ As Directed STK-MED ONCE IV ; Start 08/26/16 at 09:44; Stop 01/02 at 09:45; Status DC Lidocaine HCl (Lidocaine Pf 2% Vial) 5 ml STK-MED ONCE .ROUTE ; Start 08/26/16 at 09:44; Stop 08/26/16 at 09:45; Status DC Fentanyl Citrate (Fentanyl 2ml Vial) 100 mcg STK-MED ONCE .ROUTE ; Start at 09:45; Stop 08/26/16 at 09:46; Status DC Cefazolin Sodium/ Dextrose 50 ml @ 100 mls/hr 1X PREOP ONCE IV ; Start at 10:15; Stop 08/26/16 at 10:44; Status DC Bupivacaine HCl/ Epinephrine Bitart (Marcaine-Epi 0.5%-1:[id number]) 50 ml STK-MED ONCE .ROUTE Last administered on 08/26/16 10:45; Start 08/26/16 at 10:23; Stop 08/26/16 at 10:24; Status DC Enoxaparin Sodium (Lovenox 40mg Syringe) 40 mg Q24H SQ ; Start 08/26/16 at 11:30 ; Status UNV Sodium Chloride (Normal Saline Flush) 3 ml QSHIFT PRN IV AFTER MEDS AND BLOOD DRAWS; Start 08/26/16 at 11:30 Ringer's Solution 1,000 ml @ 100 mls/hr Q10H IV Last administered on 10:53; Start 08/26/16 at 11:24 Acetaminophen/ Hydrocodone Bitart (Lortab 5/325) 1 tab PRN Q4HRS PRN PO MODERATE PAIN Last administered on 08/28/16 04:03; Start 08/26/16 at 11:30 Docusate Sodium (Colace) 100 mg BID PO Last administered on 08/28/16 09:18; Start 08/26/16 at 21:00 Fentanyl Citrate (Fentanyl 2ml Vial) 50 mcg PRN Q2HR PRN IV PAIN; Start at 14:45 Prochlorperazine Edisylate (Compazine) 10 mg PRN Q6HRS PRN IV NAUSEA/VOMITING ( 2nd Choice) Last administered on 08/26/16 16:24; Start 08/26/16 at 16:15 Polyethylene Glycol (miraLAX PACKET) 17 gm PRN DAILY PRN PO CONSTIPATION; Start 08/28/16 at 08:45 Active Scripts Active Keflex (Cephalexin) 250 Mg Capsule 1 Cap PO TID Reported Betimol (Timolol) 5 Ml Drops 5 Ml OP Xalatan (Latanoprost) 2.5 Ml Drops 1 Drop EACHEYE QHS Escitalopram Oxalate 10 Mg Tablet 1 Tab PO DAILY Tramadol Hcl 50 Mg Tablet 1 Tab PO Q8HRS PRN Advair 250-50 Diskus (Fluticasone/Salmeterol) 1 Each Disk.w.dev 1 Puff IH BID Proair Hfa Inhaler (Albuterol Sulfate) 8.5 Gm Hfa.aer.ad 108 Mcg INH Q4HRS PRN Losartan Potassium 50 Mg Tablet 50 Mg PO DAILY Amlodipine Besylate 5 Mg Tablet 7.5 Mg PO HS Diazepam 5 Mg Tablet 2.5 Mg PO BID Hydrochlorothiazide Tablet (Hydrochlorothiazide) 12.5 Mg Tablet 1 Tab PO DAILY Atorvastatin Calcium 20 Mg Tablet 20 Mg PO DAILY Fluticasone Propionate 15.8 Ml [place].susp 50 Mcg NS DAILY Benzonatate 100 Mg Capsule 200 Mg PO TID PRN Plavix (Clopidogrel Bisulfate) 75 Mg Tablet 75 Mg PO HS 30 Days Montelukast Sodium Tablet (Montelukast Sodium) 10 Mg Tablet 10 Mg PO DAILY Clonidine Hcl 0.1 Mg Tablet 0.1 Mg PO HS Vitals/I & O Vital Sign - Last 24 Hours 08/27/16 08/27/16 08/27/16 08/27/16 11:49 17:05 17:35 18:40 Temp 98.1 98.1 Pulse 94 Resp 18 B/P (MAP) 125/69 (87) Pulse Ox 94 95 O2 Delivery Nasal Cannula Nasal Cannula Room Air Room Air O2 Flow Rate 2.0 2.0 08/27/16 08/27/16 08/27/16 08/27/16 19:00 19:29 19:32 20:00 Temp 98.1 98.1 Pulse 95 Resp 20 B/P (MAP) 145/70 (95) Pulse Ox 91 93 93 O2 Delivery Room Air Room Air Room Air Room Air 08/27/16 08/27/16 08/27/16 08/27/16 21:03 21:04 21:04 22:08 Pulse 95 95 Resp 20 18 B/P (MAP) 145/70 145/70 O2 Delivery Room Air Room Air 08/27/16 08/28/16 08/28/16 08/28/16 23:00 04:03 05:10 07:00 Temp 98.3 97.7 98.3 97.7 Pulse 88 80 Resp 20 21 20 18 B/P (MAP) 93/56 (68) 122/56 (78) Pulse Ox 95 92 O2 Delivery Nasal Cannula Room Air Room Air Room Air 08/28/16 08/28/16 08/28/16 08/28/16 07:03 08:00 09:21 10:51 Pulse 80 B/P (MAP) 122/56 Pulse Ox 98 92 O2 Delivery Nasal Cannula Room Air Room Air O2 Flow Rate 2.0 08/28/16 11:00 Temp 97.5 97.5 Pulse 85 Resp 18 B/P (MAP) 143/65 (91) Pulse Ox 93 O2 Delivery Room Air Intake and Output 08/27/16 08/27/16 08/28/16 15:00 23:00 07:00 Intake Total 1620 ml 800 ml Output Total 1001 ml 450 ml Balance 619 ml 350 ml Nutrition Consultation Dietary Evaluation: Comments: diet adv as tolerated Expected Outcomes/Goals: to meet > 75% est nutr needs Malnutrition Findings: Body Fat Depletion (Non Severe: Mild Depletion Weight Status: Appropriate Fluid Accumulation (Non-Severe: Mild depletion EVELYN NEGRETE III DO Aug 28, 2016 11:20
--- NOTE | 2016-08-28 16:03 | PATHOLOGY ---
PATHOLOGY REPORT * * * * * * * * FINAL DIAGNOSIS: Lymph nodes (7) "right inguinal area labeled hernia": - Benign reactive lymph nodes with sclerosis ,reactive germinal centers and sinus histocytosis. - See comment. COMMENT: The fibroadipose tissue that was submitted had seven lymph nodes which reveal reactive germinal center sinus histocytosis and sclerosis. This case was also reviewed by the hematopathologist, Dr. Umu Quarles. A fragment of fibroadipose tissue is also present which is consistent with a hernia sac. (SHA:[facility]; 08/28/2016) REPORT ELECTRONICALLY SIGNED BY: Carlos Alberto Avila M.D. DATE/TIME: 08/28/2016 16:02 * * * * * * * * GROSS PATHOLOGY: Received in formalin labeled "Lisha Jasmine, hernia sac," are multiple pieces of fibroadipose/fibromembranous tissue measuring 7.4 x 5.5 x 2.1 cm in aggregate dimensions. [employer] tissue is submitted in cassette A1. Upon sectioning the fibroadipose tissue there are 7 multiple pink-strauss irregular to ovoid shaped possible lymph nodes measuring 4.5 x 2.5 x 1.2 cm in aggregate dimensions and ranging from 0.9 to 2.5 cm in maximum dimensions. They are serially sectioned and entirely submitted in cassettes A2 thru A9. (NEISHA; 08/27/2016) INITIAL CPT CODE(S): 38672 Professional services performed [place] [facility] [place] [address] Technical services performed by [facility] at [address] [place] [address], [address], [place] [address]. SPECIMEN(S) RECEIVED: A.Hernia sac CLINICAL HISTORY: Right inguinal hernia PATIENT: LISHA JASMINE /AGE: 3 1930 (Age: 86) PATIENT #: [id number] ALT CASE #: SPECIMEN COLLECTION DATE: 08/26/2016 SPECIMEN RECEIVED DATE: 08/26/2016 [facility] - [address] [place] [address] - PHONE: [phone] * * * END OF REPORT * * *
== END 2016-08-28 14:45 | DRG 351 ==
LOC: ER 09:41 → 5 NORTH 13:18 → OBSVTOIN 08-22 15:14
PROVIDERS: ADMIT Internal Medicine; ATTEND Internal Medicine
PROC: 0YU50JZ Supplement Right Inguinal Region with Synthetic Substitute, Open Approach (ICD-10-PCS; principal; 2016-08-26 11:30)
DX: K40.90 Unilateral inguinal hernia, without obstruction or gangrene, not specified as recurrent (principal); I16.1 Hypertensive emergency; E87.6 Hypokalemia; K21.9 Gastro-esophageal reflux disease without esophagitis; D64.9 Anemia, unspecified; E78.00 Pure hypercholesterolemia, unspecified; E78.5 Hyperlipidemia, unspecified; F32.9 Major depressive disorder, single episode, unspecified; F41.9 Anxiety disorder, unspecified; H40.9 Unspecified glaucoma; I10 Essential (primary) hypertension; I25.10 Atherosclerotic heart disease of native coronary artery without angina pectoris; I73.9 Peripheral vascular disease, unspecified; I89.0 Lymphedema, not elsewhere classified; J44.9 Chronic obstructive pulmonary disease, unspecified; K57.30 Diverticulosis of large intestine without perforation or abscess without bleeding; K59.00 Constipation, unspecified; Z96.641 Presence of right artificial hip joint; N28.1 Cyst of kidney, acquired; Z90.49 Acquired absence of other specified parts of digestive tract; Z79.899 Other long term (current) drug therapy; Z88.5 Allergy status to narcotic agent; Z88.2 Allergy status to sulfonamides; Z90.710 Acquired absence of both cervix and uterus; Z87.440 Personal history of urinary (tract) infections; Z80.0 Family history of malignant neoplasm of digestive organs
CPT/HCPCS: 36415; 74174; 74177; 80048; 80076; 81001; 83605; 83690; 84484; 85027; 87086; 88307; 93005; 94250; 94640; 94760; A6539; C1781; G0378; G0379; J0360; J0690; J0780; J1100; J1170; J1650; J2001; J2405; J2704; J3010; J3480; J7030; J7040; J7120; J7620; J7626; Q9967; 97110; 97116

== ENCOUNTER → 2016-09-24 | Outpatient (CLI) | payer MEDICARE ==
[2016-08-28 11:00] VITALS: BP 143/65
[~2016-09-24] MED LIST changes: +DIAZ5TAB4 PO; +ESCITALOPRAM OX10 MG PO; +HYDR12.58 PO; +LATA2.5D2 EACHEYE; +LOSA50TA6 PO
--- NOTE | 2016-09-24 11:19 | KCIC ---
EXAM: Brain MRI without contrast. HISTORY: Transient cerebral ischemia. Dementia. Memory problems. TECHNIQUE: Multiplanar, multisequence magnetic resonance imaging of the brain was performed without contrast. COMPARISON: MR angiogram dated 12/27/2015. FINDINGS: There is no restricted diffusion to suggest acute or subacute infarction. There is no susceptibility effect to suggest hemorrhage. There is no mass effect or midline shift. There is no hydrocephalus. 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 There are scattered focal areas of T2/FLAIR hyperintensity throughout the cerebral white matter, a nonspecific finding likely due to chronic small vessel disease. There is cerebral volume loss. There are findings consistent with lens surgery. The paranasal sinuses and mastoid air cells are unremarkable. There is decreased flow void within the distal left vertebral artery at the level of the skull base. There is soft tissue pannus surrounding the dens, a nonspecific finding which can be seen with rheumatoid arthritis. IMPRESSION: 1. Multiple scattered focal areas of signal change throughout the cerebral white matter, a nonspecific finding likely due to chronic small vessel disease. 2. 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 3. Decreased flow void within the distal left vertebral artery at the level of the skull base. The left vertebral artery appears hypoplastic. This may be due to flow artifact, low flow or chronic partial occlusion. 4. Cerebral volume loss. Electronically signed by: Samra Velazquez MD (09/24/2016 11:15 AM) [id number]
== END | disposition home or self-care (01) ==
LOC: KCIC MRI 10:16
PROVIDERS: ATTEND Psychiatry & Neurology Neurology with Special Qualifications in Child Neurology
DX: F03.90 Unspecified dementia, unspecified severity, without behavioral disturbance, psychotic disturbance, mood disturbance, and anxiety (principal); G45.9 Transient cerebral ischemic attack, unspecified; Z59.0 Homelessness
CPT/HCPCS: 70551

== ENCOUNTER → 2016-10-08 | Outpatient (CLI) | payer MEDICARE ==
--- NOTE | 2016-10-08 12:07 | KCIC ---
Examination: MRI of the right shoulder without contrast HISTORY: History of right shoulder pain, tremors COMPARISON: None available Technique: Multiplanar, multisequence MR imaging of the right shoulder was performed without contrast. FINDINGS: Examination is very limited due to significant motion artifact due to motion which causes degradation of images. Grossly the long head of the biceps tendon appears to be within the bicipital groove. The intra-articular portion of the long the biceps tendon evaluation is limited. There is increased signal identified in the visualized subscapularis tendon moderate tendinosis. There is moderate increased signal identified in the supraspinatus, infrapatellar tendon likely tendinosis. There is mild superior translation of the humerus head in relation to the glenoid. The rotator cuff cannot be evaluated for partial tears due to significant motion. No obvious tendon retraction is visualized. There is mild fatty atrophic changes of these supraspinatus, infraspinatus muscles. There is obliteration of fat in the rotator interval. Moderate joint space loss identified in the glenohumeral joint and the acromioclavicular joint likely degeneration. The acromion is type II. There is increased signal noted throughout the labrum likely degeneration. IMPRESSION: 1. Very limited examination due to significant motion artifact due to patient's involuntary tremors.The rotator cuff cannot be evaluated for partial tears due to significant motion. No obvious tendon retraction is visualized. 2. Increased signal identified in the subscapularis, supraspinatus, infraspinatus tendons likely tendinosis. Electronically signed by: Pablo Conklin MD (10/08/2016 12:03 PM) [id number]
== END | disposition home or self-care (01) ==
LOC: KCIC MRI 10:19
PROVIDERS: ATTEND Family Medicine
DX: M25.511 Pain in right shoulder (principal); R25.1 Tremor, unspecified
CPT/HCPCS: 73221

== ENCOUNTER 2017-12-24 23:55 | Emergency (ER) | payer MEDICARE ==
[~2017-12-24] VITALS: Ht 157.5 cm; Wt 55.3 kg
[~2017-12-24 23:55] MED LIST changes: -AMLO5TAB2 PO; +AMLO5TAB7 PO; +BENZ-8 PO; -BENZ100C15 PO; -LOSA1TAB16 PO; -LOSA1TAB18 PO; +LOSA1TAB19 PO; +LOSA1TAB25 PO; -LOSA50TA6 PO; +LOSA50TA7 PO; +NAPR-514 PO; -NAPR500T3 PO
--- NOTE | 2017-12-25 00:27 | PHYS DOC ---
Past Medical History Past Medical History: Anxiety, Arthritis, Asthma, CAD, COPD, Depression, GERD, High Cholesterol, Hypertension, Hypotension, UTI, Other Additional Past Medical Histor: CLAUDICATION OF BILATERAL LEG Past Surgical History: Appendectomy, Hysterectomy, Other Additional Past Surgical Histo: Shoulders, Back, CLAUDICATION W/ INTERVENTION, R ANKLE ORIF Alcohol Use: None Drug Use: None Adult General Chief Complaint Chief Complaint: MECHANICAL FALL HPI HPI Patient is a 87 year old female who presents with right upper extremity and left ankle region pain post-fall sometime around 12/24/2017 and the afternoon. Story varies from she fell getting out of a car to having slipped on wet pavement due to snow. Patient denies any loss of consciousness. Reports still able to ambulate. Eyes any numbness or tingling. Patient is right hand dominant. Denies any head injury. Denies any syncopal event. [] Review of Systems Review of Systems Constitutional: Denies fever or chills [] Eyes: Denies change in visual acuity, redness, or eye pain [] HENT: Denies nasal congestion or sore throat [] Respiratory: Denies cough or shortness of breath [] Cardiovascular: No chest pain or palpitations[] GI: Denies abdominal pain, nausea, vomiting, bloody stools or diarrhea [] : Denies dysuria or hematuria [] Musculoskeletal: Denies back pain AND reports joint pain as noted in the history of present illness[] Integument: Denies rash or skin lesions [] Neurologic: Denies headache, focal weakness or sensory changes [] Endocrine: Denies polyuria or polydipsia [] All other systems were reviewed and found to be within normal limits, except as documented in this note. Current Medications Current Medications Current Medications Medications (Trade) Dose Ordered Sig/[facility] Start Time Stop Time Status Last Admin Dose Admin Acetaminophen (Tylenol) 500 mg 1X ONCE 12/25/17 01:00 12/25/17 01:01 DC 12/25/17 00:30 500 MG Allergies Allergies Allergies Coded Allergies Type Severity Reaction Last Updated Verified Sulfa (Sulfonamide Antibiotics) Allergy Intermediate 08/26/16 Yes codeine Adverse Reaction Intermediate NAUSEA AND VOMITING 08/26/16 Yes Physical Exam Physical Exam Constitutional: Well developed, well nourished, no acute distress, non-toxic appearance. [] HENT: Normocephalic, atraumatic, bilateral external ears normal, oropharynx moist, no oral exudates, nose normal. [] Eyes: PERRLA, EOMI, conjunctiva normal, no discharge. [] Neck: Normal range of motion, no tenderness, supple, no stridor. [] Cardiovascular:Heart rate regular rhythm, no murmur [] Lungs & Thorax: Bilateral breath sounds clear to auscultation [] Abdomen: Bowel sounds normal, soft, no tenderness, no masses, no pulsatile masses. [] Skin: Warm, dry, no erythema, no rash. [] Back: No tenderness, no CVA tenderness. [] Extremities:no cyanosis, no clubbing, ROM intact, no edema. She has tenderness diffusely in the right upper extremity from the shoulder distally. Patient has limited range of motion at the shoulder, full range of motion at the elbow, wrist, and fingers. Patient is distal neurovascularly intact. There is no pain on axial loading. Patient's left lower extremity has diffuse pain from the mid calf distally. There is no swelling. No knee tenderness, full active range of motion of the knee. Limited active range of motion of the ankle, both medial and lateral malleolus tenderness to palpation, there is diffuse foot tenderness. Patient is distal neurovascularly intact in the left lower extremity. There is no hip tenderness. There is no tenderness of the femur with axial loading. [] Neurologic: Alert and oriented X 3, normal motor function, normal sensory function, no focal deficits noted. [] Psychologic: Affect normal, judgement normal, mood normal. [] Current Patient Data Vital Signs Vital Signs Date Time Temp Pulse Resp B/P (MAP) Pulse Ox O2 Delivery O2 Flow Rate FiO2 12/25/17 00:01 98.6 73 18 104/53 (70) 98 Room Air 98.6 EKG EKG [] Radiology/Procedures Radiology/Procedures X-rays of the right humerus, forearm, and hand show no acute injury. There is evidence of an old ulnar styloid injury that is well corticated. X-rays of the left tibia fibula, ankle, and foot show no acute fracture or dislocation.[] Course & Med Decision Making Course & Med Decision Making Pertinent Labs and Imaging studies reviewed. (See chart for details) Medical Decision making: There is no evidence of fracture or dislocation. No evidence of compartment syndrome, no evidence of neurovascular compromise. No evidence of intractable pain. D course: Patient arrived via EMS, was placed in the hospital bed, and tolerated exam well. Patient received Tylenol for pain management which didn't improved her pain. After the imaging results were returned, discussion was made with the patient regarding the findings and follow-up plan. All questions were answered. She was discharged in improved condition.[] Dragon Disclaimer Dragon Disclaimer This electronic medical record was generated, in whole or in part, using a voice recognition dictation system. Departure Departure Impression: Primary Impression: Left ankle sprain Additional Impression: Right upper limb pain Disposition: HOME, SELF-CARE Condition: GOOD Referrals: LIZABETH GOMEZ MD (PCP) Follow-up in 2 days Patient Instructions: Ankle Sprain, Contusion Additional Instructions: Follow-up with your regular doctor 2 days. Return to the ER if worsening pain, weakness, or any other concerns. Problem Qualifiers Primary Impression: Left ankle sprain Encounter type: initial encounter Involved ligament of ankle: unspecified ligament Qualified Codes: S93.402A - Sprain of unspecified ligament of left ankle, initial encounter AMBROCIO CEDEÑO DO Dec 25, 2017 00:27
[2017-12-25] MEDS ORDERED: ACETAMINOPHEN 500 MG TABLET PO ONE (01:00)
[2017-12-25 02:45] VITALS: BP 113/55
--- NOTE | 2017-12-25 03:07 | RAD ---
HUMERUS RIGHT, HAND RIGHT 3V, FOREARM RIGHT Clinical Indication: pt.fell; arm pain Comparison: None. Findings: Images do not constitute a diagnostic evaluation of the elbow or wrist. There is no acute fracture of the humerus. Narrowing of the acromiohumeral distance suggests chronic rotator cuff tear. No elbow dislocation. 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 There is old fracture of the distal radius. No acute fracture of the radius or ulna is identified. There is motion artifact on the PA view of the hand decreasing sensitivity. There is bony overlap on the oblique and lateral views, limiting evaluation. Given these limitations, no acute fracture of the hand is identified. There is DIP joint space narrowing and marginal osteophyte formation. There is diffuse demineralization. There is soft tissue swelling overlying the second PIP joint. IMPRESSION: 1. No acute fracture of the humerus, radius, ulna, or hand. 2. Old fractures of the distal radius and ulnar styloid. Electronically signed by: Eloy Pichardo MD (12/25/2017 3:04 AM) [id number]
--- NOTE | 2017-12-25 03:11 | RAD ---
ANKLE LEFT 3V, TIBIA FIBULA LEFT, FOOT LEFT 3V Clinical Indication: pt fell; ankle pain Comparison: None. Findings: There is no ankle soft tissue swelling. Ankle mortise is intact. No acute fracture of the ankle seen. There is no joint effusion. Arterial and not arterial calcifications are noted in the soft tissues. Hammertoe deformities second through fifth toes. No significant dorsal soft tissue swelling of the foot. Diffuse demineralization decreases sensitivity. No acute fracture in the foot is identified. No acute fracture of the tibia or fibula. No obvious deformity of the knee. No soft tissue swelling is seen radiographically. IMPRESSION: No acute fracture. Electronically signed by: Eloy Pichardo MD (12/25/2017 3:08 AM) [id number]
== END 2017-12-25 02:50 | disposition home or self-care (01) ==
LOC: ER 23:55
DX: S93.402A Sprain of unspecified ligament of left ankle, initial encounter (principal); M79.601 Pain in right arm; J44.9 Chronic obstructive pulmonary disease, unspecified; K21.9 Gastro-esophageal reflux disease without esophagitis; E78.00 Pure hypercholesterolemia, unspecified; I25.10 Atherosclerotic heart disease of native coronary artery without angina pectoris; I10 Essential (primary) hypertension; Z88.2 Allergy status to sulfonamides; Z88.5 Allergy status to narcotic agent; W00.0XXA Fall on same level due to ice and snow, initial encounter; Y93.89 Activity, other specified; Y92.89 Other specified places as the place of occurrence of the external cause; Y99.8 Other external cause status
CPT/HCPCS: 73060; 73090; 73130; 73590; 73610; 73630; 99284